=== PATIENT | male | born 1935 | race Caucasian/White ===

== ENCOUNTER → 2016-05-01 | Day surgery (SDC) | payer OTHER ==
[2016-04-24 13:17] VITALS: Ht 175.3 cm; Wt 65.0 kg
[~2016-05-01] VITALS: Ht 175.3 cm; Wt 65.0 kg
[~2016-05-01] MED LIST: ALPR-411 PO; AMIO200T4 PO; ASCO500T3 PO; CHOL400T5 PO; CMD/25 PO; CYAN100020 PO; DNSIS60 INJ; DOCU100C PO; FERR325T5 PO; LIDOCAINE HCL 2% 2 ML VIAL (20MG/ML) ONE; LUPRON DEPOT INJ; METO1TAB69 PO; PRLSR20 PO; PROPOFOL IV EMULSION 10 MG/ML 20 ML VIAL IV ONE; SODIUM CHLORIDE 0.9% 500ML 500 ML IV ONE; TORS20TA2 PO
--- NOTE | 2016-05-01 09:24 | Endo History and Physical ---
History & Physical Date of Service: May 01, 2016. Chief Complaint: ABD Discomfort Referring Physician: Ramandeep History of Present Illness nausea and abdominal pain Past Surgical History Hx Cardiac Surgery: Yes (CABG- 2 VESSELS X 2) Hx Internal Defibrillator: Yes (MEDTRONIC) Hx Pacemaker: Yes (MEDTRONIC) Hx Abdominal Surgery: No Hx of Implantable Prosthesis: No Hx Post-Op Nausea and Vomiting: No Hx Cancer Surgery: No Hx Thoracic Surgery: No Hx Orthopedic: Yes (RT RADIUS FX REPAIR) Hx Urinary Tract Surgery: Yes (VASECTOMY, CYSTOSCOPY ) Family History Colon CA Social History Smoking Status: Former Smoker Hx Substance Use: No Hx Alcohol Use: Yes (ONLY FOR COMMUNION) Allergies Coded Allergies: Bee Venom (Verified Allergy, Unknown, WASPS, 04/24/16) Lisinopril (Verified Allergy, Unknown, COUGH, 04/24/16) Mirtazapine (Verified Allergy, Unknown, FLUSING FEELING, 04/24/16) Streptokinase (Verified Allergy, Unknown, WAS TOLD NOT TO TAKE, 04/24/16) Uncoded Allergies: POISON PO (Allergy, Unknown, BLISTERS, 04/24/16) Current Medications Reported Home Medications Medications Dose Route/Sig Max Daily Dose Days Date Category Dose Instructions Xanax (Alprazolam) 0.5 Mg Tab 0.5 Mg PO HS PRN 04/24/16 Reported Stool Softener (Docusate Sodium) 100 Mg Cap 1 Cap PO DAILY PRN 04/24/16 Reported Prolia (Denosumab) 60 Mg/1 Ml Inj 1 Dose INJ [id number] 04/24/16 Reported [Lupron Depot] 1 Dose INJ [id number] 04/24/16 Reported Coumadin (Warfarin Sod) 2.5 Mg Tab 2.5 Mg PO DIRECTED 04/24/16 Reported TAKES 1 TAB FRIDAY AND THURSDAYS, ALL OTHER DAYS TAKES 0.5 TAB Vitamin C (Ascorbic Acid) 500 Mg Tab 1 Tab PO QPM 04/24/16 Reported Vitamin D (Cholecalciferol) 400 Unit Tab 2 Tab PO QPM 04/24/16 Reported Demadex (Torsemide) 20 Mg Tab 20 Mg PO QAM 04/24/16 Reported Cordarone (Amiodarone Hcl) 200 Mg Tab 100 Mg PO QAM 04/24/16 Reported Toprol-Xl (Metoprolol Succinate) 100 Mg Tabcr 100 Mg PO QAM 04/24/16 Reported Vitamin B12 (Cyanocobalamin) 1,000 Mcg Tab 1 Tab PO QAM 04/24/16 Reported Ferrous Sulfate 325 Mg Tab 1 Tab PO QAM 04/24/16 Reported Prilosec (Omeprazole) 20 Mg Capcr 20 Mg PO QAM 04/24/16 Reported Vital Signs Weight (Kilograms): 65 Height (Feet): 5 Height (Inches): 9 Date Time Temp Pulse Resp B/P Pulse Ox O2 Delivery O2 Flow Rate FiO2 05/01/16 08:50 36.4 67 18 131/86 98 Room Air Physical Exam General Appearance: no apparent distress Respiratory/Chest: Auscultation: breath sounds normal Cardiovascular: Heart Auscultation: RRR Abdomen: Inspection & Palpation: soft Liver: non-tender Assessment and Plan stable for EGD.
--- NOTE | 2016-05-01 09:48 | GI REPORT ---
Procedure Date: 05/01/2016 9:00 AM Procedure: Upper GI endoscopy Indications: Epigastric abdominal pain, Nausea Medicines: See the Anesthesia note for documentation of the administered medications Complications: No immediate complications. Estimated Blood Loss: Estimated blood loss: none. Procedure: Pre-Anesthesia Assessment: - Prior to the procedure, a History and Physical was performed, and patient medications, allergies and sensitivities were reviewed. The patient's tolerance of previous anesthesia was reviewed. - The risks and benefits of the procedure and the sedation options and risks were discussed with the patient. All questions were answered and informed consent was obtained. - Patient identification and proposed procedure were verified prior to the procedure by the physician and the nurse. The procedure was verified in the pre-procedure area. - Pre-procedure physical examination revealed no contraindications to sedation. - After reviewing the risks and benefits, the patient was deemed in satisfactory condition to undergo the procedure. After obtaining informed consent, the endoscope was passed under direct vision. Throughout the procedure, the patient's blood pressure, pulse, and oxygen saturations were monitored continuously. The scope was introduced through the mouth, and advanced to the third part of duodenum. The upper GI endoscopy was accomplished without difficulty. The patient tolerated the procedure well. Findings: The esophagus was normal. The stomach was normal. The examined duodenum was normal. The cardia and gastric fundus were normal on retroflexion. Impression: - Normal esophagus. - Normal stomach. - Normal examined duodenum. - No specimens collected. Recommendation: - Discharge patient to home. Gutierrez Harris M.D. Gutierrez Harris MD 05/01/2016 9:47:58 AM This report has been signed electronically. Note Initiated On: 05/01/2016 9:00 AM I attest to the content of the Intraoperative Record and orders documented therein, exceptions below
--- NOTE | 2016-05-01 09:49 | Discharge Instructions ---
Endoscopy Patient Instructions Date / Procedure(s) Performed May 01, 2016. EGD Allergy Information Coded Allergies: Bee Venom (Verified Allergy, Unknown, WASPS, 04/24/16) Lisinopril (Verified Allergy, Unknown, COUGH, 04/24/16) Mirtazapine (Verified Allergy, Unknown, FLUSING FEELING, 04/24/16) Streptokinase (Verified Allergy, Unknown, WAS TOLD NOT TO TAKE, 04/24/16) Uncoded Allergies: POISON PO (Allergy, Unknown, BLISTERS, 04/24/16) Discharge Date / Findings May 01, 2016. normal EGD. Medication Instructions Stopped Medication(s): Daily meds. Provider Instructions Activity Restrictions - No exercising or heavy lifting for 24 hours. - Do not drink alcohol the day of the procedure. - Do not drive a car or operate machinery until the day after the procedure. - Do not make any important decisions or sign important papers in 24 hours after the procedure. Following Day: - Return to full activity which may include returning to work/school. Diet Start your diet with liquids and light foods (jello, soup, juice, toast). Then eat your usual diet if not nauseated. Treatment For Common After Affects For mild abdominal pain, bloating, or excessive gas: - Rest - Eat lightly - Lie on right side Follow-Up Information Follow-up with Ramandeep as scheduled Anesthesia Information What You Should Know You have had a procedure that required some medicine to reduce anxiety and discomfort. This treatment is called moderate sedation. After receiving the treatment, you may be sleepy, but you will be able to breathe on your own. The effects of the treatment may last for several hours. Follow these instructions along with Activity/Diet recommendations noted above: * Do NOT do anything where dizziness or clumsiness would be dangerous. * Rest quietly at home today, then you can be up and about tomorrow. * Have a responsible person stay with you the rest of today. * You may have had an I.V. today. If so, you may take the dressing off later today. Recommendations Call your doctor if: * Trouble breathing * Continuous vomiting for more than 24 hours * Temperature above 101 degrees * Severe abdominal pain or bloating * Pain not relieved by pain medicine ordered * There is increased drainage or redness from any incision * A large amount of rectal bleeding greater than 2-3 tablespoons. (If you had a polyp/s removed or have hemorrhoids, a small amount of blood - from the rectum is to be expected.) * You have any unanswered questions or concerns. IN THE EVENT OF A SERIOUS EMERGENCY, GO TO THE NEAREST EMERGENCY ROOM Your discharge instructions were prepared by provider Gutierrez Harris. Patient Instructions Signature Page Julius Sullivan Patient (or Guardian) Signature/Date: I have read and understand the instructions given to me by my caregivers. Caregiver/RN/Doctor Signature/Date: The above-named patient and/or guardian has received patient instructions on this date. + Original Patient Signature Page (only) stays with chart. Please make copy for patient.
[2016-05-01 10:10] VITALS: BP 118/70; PULSE 60; O2SAT 96
--- NOTE | 2016-05-01 10:22 | Anesthesiology Progress Note ---
Anesthesia Post Op Note Date & Time May 01, 2016 at 10:22 Vital Signs Pain Intensity: 0 Vital Signs Past 12 Hours Date Time Temp Pulse Resp B/P Pulse Ox O2 Delivery O2 Flow Rate FiO2 05/01/16 10:10 60 20 118/70 96 Room Air 05/01/16 09:55 62 20 117/71 96 Room Air 05/01/16 09:40 65 20 111/62 100 Room Air 05/01/16 08:50 36.4 67 18 131/86 98 Room Air Notes Mental Status: alert / awake / arousable, participated in evaluation Pt Amnestic to Procedure: Yes Nausea / Vomiting: adequately controlled Pain: adequately controlled Airway Patency, RR, SpO2: stable & adequate BP & HR: stable & adequate Hydration State: stable & adequate Anesthetic Complications: no major complications apparent
== END | disposition home or self-care (01) ==
LOC: C.GI 08:13
PROVIDERS: ATTEND Internal Medicine Gastroenterology
DX: R10.13 Epigastric pain (principal); R11.0 Nausea; Z80.0 Family history of malignant neoplasm of digestive organs; Z87.891 Personal history of nicotine dependence; Z79.01 Long term (current) use of anticoagulants; Z79.899 Other long term (current) drug therapy

== ENCOUNTER 2022-05-01 06:55 | Inpatient (IN) ==
[~2022-05-01 06:55] MED LIST changes: -ALPR-411 PO; -AMIO200T4 PO; -ASCO500T3 PO; +BUPIVACAINE 0.25% PF 30 ML VIAL ONE; -CHOL400T5 PO; -CMD/25 PO; -CYAN100020 PO; -DNSIS60 INJ; -DOCU100C PO; -FERR325T5 PO; +LIDOCAINE 1% LOCAL 20 ML VIAL ONE; -LIDOCAINE HCL 2% 2 ML VIAL (20MG/ML) ONE; -LUPRON DEPOT INJ; -METO1TAB69 PO; -PRLSR20 PO; -PROPOFOL IV EMULSION 10 MG/ML 20 ML VIAL IV ONE; -SODIUM CHLORIDE 0.9% 500ML 500 ML IV ONE; -TORS20TA2 PO; +VANCOMYCIN HCL 1000MG/20ML VIAL ONE; +WATER, STERILE FOR INJ 10 ML VIAL ONE
--- NOTE | 2022-05-01 07:59 | History & Physical Report ---
Date of Service May 01, 2022 Assessment & Plan (1) Nonhealing surgical wound: Plan: Pt with non-healing surgical incision presents today for a pocket revision and wide excision discussed the procedure and potential risks with the patient and family today; risks include but not limited to heart attack, stroke, , arrhythmia, infection, bleeding. Everyone understood and consents signed. (2) Ischemic cardiomyopathy: (3) Biventricular ICD (implantable cardioverter-defibrillator) in place: History of Present Illness Chief Complaint: non healing surgical incision Primary Care Provider: Hai Sabillon Pt suffered a mechanical fall about a month after his BiV ICD generator change which was complicated with a hematoma developing over the device site there was a delay in our office finding out about this and by the time we were alerted the incision was opened up. Pt was admitted to [facility] [place] and had direct abx delivered directly to into the pocket for a few days for it was too high risk to laser extraction of the chronic leads. He was eventually brought back to the EP lab and had a new generator placed and the incision closed. During this wound healing the incsion started to scab over and non healing. he presents today in hopes that we can do a pocket revision and wide surgical incision in hopes that we can bring together healthier tissue Allergies Allergy/AdvReac Type Severity Reaction Status Date / Time bee venom protein (honey bee) Allergy Unknown WASPS Verified 05/01/22 07:49 lisinopril Allergy Unknown COUGH Verified 05/01/22 07:49 mirtazapine Allergy Unknown FLUSING Verified 05/01/22 07:49 FEELING streptokinase Allergy Unknown WAS TOLD Verified 05/01/22 07:49 NOT TO TAKE POISON PO Allergy Unknown BLISTERS Uncoded 04/24/16 13:06 Home Medications Medication Instructions Recorded Confirmed Type ASCORBIC ACID (VITAMIN C) 1 tab PO QPM ##0 04/24/16 05/01/22 History Alprazolam (Xanax) 0.5 mg PO HS PRN Sleep #0 tabs 04/24/16 05/01/22 History CHOLECALCIFEROL (VITAMIN D) 2 tab PO QPM ##0 04/24/16 History CYANOCOBALAMIN (VITAMIN B12) 1 tab PO QAM ##0 04/24/16 History Denosumab (Prolia) 1 dose INJ [id number] ##0 04/24/16 History FERROUS SULFATE 1 tab PO QAM ##0 04/24/16 History LUPRON DEPOT 1 dose INJ [id number] ##0 04/24/16 History Metoprolol Succ (Toprol Xl) 100 mg PO QAM #0 tabs 04/24/16 History (Toprol-Xl ) OMEPRAZOLE (PRILOSEC) 20 mg PO QAM #0 caps 04/24/16 History TORSEMIDE (DEMADEX) 20 mg PO QAM #0 tabs 04/24/16 History WARFARIN SOD (Coumadin) 2.5 mg PO DIRECTED #0 tabs 04/24/16 History Past Med/Surg History Medical History (Updated 05/01/22 @ 07:58 by Kayli Reeves DO) Biventricular ICD (implantable cardioverter-defibrillator) in place CAD (coronary artery disease) CHB (complete heart block) CKD (chronic kidney disease) stage 3, GFR 30-59 ml/min GERD (gastroesophageal reflux disease) H/O prostate cancer Hepatitis C Ischemic cardiomyopathy Liver cirrhosis Surgical History (Updated 05/01/22 @ 07:57 by Kayli Reeves DO) Hx of CABG Social History Smoking Status: Former smoker Second Hand Exposure: No; Do You Dip or Chew Tobacco: No; Tobacco Cessation Education Requested by Patient: No Hx Alcohol Use: No Hx Substance Use: No Preferred Language: Lithuanian Communication Ability: Effective Surgical Services Assistant Required: No Current Living Situation: Spouse Feels Safe at Home: Yes Review of Systems All systems reviewed & are unremarkable except as noted in HPI & below Physical Exam Physical Exam: aaox3, NAD NC/AT, EOMI Supple No JVD Nrl S1/S2, No murmur CTA b/l no w/r/r soft nt/nd no LE edema b/l skin intact no focal deficits left pectoral incision large non healing scabs noted Results & Data ([facility]) Vital Signs (Past 12 Hours) Vital Signs Pulse BP Pulse Ox O2 Del Method 05/01/22 07:18 73 138/70 95 Room Air
--- NOTE | 2022-05-01 08:02 | Pre Anesthesia Assessment ---
Date of Service May 01, 2022 Pre Sedation Assessment Vital Signs Pulse BP Pulse Ox O2 Del Method 05/01/22 07:18 73 138/70 95 Room Air Cardiovascular RRR, no murmur, no edema Respiratory normal respiratory effort, lungs clear to auscultation Pre-Sedation Airway Assessment Smoking Status: Former smoker Short, Thick Neck: No Thyromental Distance: > or= 3.5 Finger Breadths Oral Cavity: + WNL Mallampati Class: III ASA: ASA3 NPO Status Date of Last Intake of Fluids: 04/30/22 Date of Last Intake of Solid Food: 04/30/22 Procedure Planning Contraindications for Sedation: none Current Medications Reviewed: Yes Notes The planned sedation has been discussed with the patient. Informed Consent was obtained. I have identified the patient, determined the appropriateness of sedation and have assessed the patient immediately prior to the procedure. All medicine(s) and interventions are by my order.
[2022-05-01] MEDS ORDERED: ceFAZolin 330 MG/ML 1 GM VIAL ONE (08:05)
[2022-05-01] MEDS ORDERED: fentaNYL citrate PF 100 MCG/2 ML VIAL ONE ×3 (08:05→10:05)
[2022-05-01] MEDS ORDERED: MIDAZOLAM HCL 5 MG/ML 1 ML VIAL ONE (08:05)
[2022-05-01] MEDS ORDERED: MIDAZOLAM HCL 1 MG/ML 2ML VIAL ONE ×2 (09:20→10:06)
[2022-05-01] MEDS ORDERED: WATER, STERILE FOR INJ 10 ML VIAL ONE (11:32)
[2022-05-01] MEDS ORDERED: VANCOMYCIN HCL 1000MG/20ML VIAL ONE (11:32)
--- NOTE | 2022-05-01 12:19 | Post Anesthesia Assessment ---
Date of Service May 01, 2022 Post Sedation Assessment Vital Signs Pulse Resp BP Pulse Ox O2 Del Method O2 Flow Rate 05/01/22 12:00 70 18 110/50 L 96 Nasal Cannula 2 05/01/22 07:18 73 138/70 95 Room Air Recovery Score Activity: Moves 4 extremities Respiration: Deep Breath/Cough Circulation: +/-20% PreAnes Value Consciousness: Fully Awake Oxygen Saturation: <90% w/ supp O2 Post Anesthesia Score: 8 Discharge Sedation Level of Care: Fast Track Phase II Post Sedation Plan On clinical assessment, the patient appears to have tolerated the sedation without complications. Patient is recovering as anticipated. Patient will continue to be monitored by nursing and may be discharged when sedation discharge criteria are met per below protocol. Upon Completions of procedure up to 15 minutes continue every 5 minute vital signs and the P.A.R. score; then discharge to a Phase I or Fast Track to Phase II per the following guidelines: * Discharge Patient to appropriate Phase II area if PAR is 8 or greater or return to pre- procedure baseline. The post - procedure orders will be as directed. * If PAR score is less than 8 or not return to pre-procedure baseline then patient will follow Phase I monitoring till PAR is reached for Phase II. The Phase I may be done in procedure room or may call to secure a Phase I area. * If naloxone or flumazenil are used for reversal, hold in Phase I for continued monitoring from when last reversal dose was given for a minimum of 60 minutes or longer pending the nurse and/or physician discretion of patient condition before discharge to Phase II. Please call the Sedation Physician to re-evaluate and complete post-note for discharge to Phase II area. Do NOT discharge from procedure sedation or Phase 1 until post- sedation evalu ation note is complete by procedure /sedation MD Sedation Discharge Instructions to be given to the patient at discharge to home.
--- NOTE | 2022-05-01 12:20 | Operative Report ---
Post Operative Report Pre & Post Diagnosis Pocket revision and biv pacemaker generator change Operation Date: 05/01/22 08:00 <No data on this case meets the specified criteria> I identified the patient and participated in the time-out.: Yes Procedure Operation Date: 05/01/22 08:00 Actual Procedures p Pocket, I/D Abscess w/Hematoma - Kayli Reeves DO s Pacer Gen Change Multiple - Kayli Reeves DO Surgeon Kayli Reeves, Cad Intern none Estimated Blood Loss 130 Findings Consistent with Post-Op Diagnosis Specimens none Description of Procedure see official report I attest to the content of the Intraoperative Record and any orders documented therein. Any exceptions are noted below.
[2022-05-01] MEDS ORDERED: ALPRAZolam 0.5 MG TABLET PO PRN (12:22)
[2022-05-01] MEDS ORDERED: MoRPHine SULFATE 2 MG/ML CARP IV PRN (15:52)
[2022-05-01] MEDS: ONDANSETRON INJ 2 MG/ML 2 ML VIAL IV PRN (16:04)
--- NOTE | 2022-05-01 16:14 | Surgery Consultation ---
Date of Consultation May 01, 2022 Assessment & Plan (1) Nonhealing surgical wound: Wound was able to be closed primarily and Prevena is functional. No further treatment needed from plastic surgery standpoint until the Prevena comes off in 7 days and we are able to assess the wound. Will assess at that time whether would is healing or additional surgical intervention will be required. In the meantime patient was encouraged to keep protein intake up. Would restrict elevation of left arm for now. History of Present Illness Attending Physician: Kayli Reeves, History of Present Illness Consultation placed by Dr. Reeves. We spoke via telephone during patient's procedure regarding options for wound management. Patient is an 86-year-old male, suffered mechanical fall after BiV ICD generator change. This resulted in hematoma, subsequently became infected and the incision opened. He was admitted to [facility] at that time, did have antibiotics delivered to the pocket. Had a new generator placed following this but then began to develop incisional dehiscence. Plan was for revision of the pocket today. Dr. Reeves contacted me after excising atrophic skin at the site with concerns about possible device coverage. She noted to the device was placed under the pectoralis major muscle but that the muscle too was atrophic. Recommendations were provided, and she was able to achieve primary closure using interrupted nylon suture and placement of a Prevena VAC. Allergies Allergy/AdvReac Type Severity Reaction Status Date / Time bee venom protein (honey bee) Allergy Unknown WASPS Verified 05/01/22 07:49 lisinopril Allergy Unknown COUGH Verified 05/01/22 07:49 mirtazapine Allergy Unknown FLUSING Verified 05/01/22 07:49 FEELING streptokinase Allergy Unknown WAS TOLD Verified 05/01/22 07:49 NOT TO TAKE POISON PO Allergy Unknown BLISTERS Uncoded 04/24/16 13:06 Home Medications Medication Instructions Recorded Confirmed Type ASCORBIC ACID (VITAMIN C) 1 tab PO QPM ##0 04/24/16 05/01/22 History Alprazolam (Xanax) 0.5 mg PO HS PRN Sleep #0 tabs 04/24/16 05/01/22 History CHOLECALCIFEROL (VITAMIN D) 2 tab PO QPM ##0 04/24/16 05/01/22 History CYANOCOBALAMIN (VITAMIN B12) 1 tab PO QAM ##0 04/24/16 05/01/22 History Denosumab (Prolia) 1 dose INJ [id number] ##0 04/24/16 05/01/22 History LUPRON DEPOT 1 dose INJ [id number] ##0 04/24/16 History Metoprolol Succ (Toprol Xl) 25 mg PO QAM #0 tabs 04/24/16 05/01/22 History (Toprol-Xl ) OMEPRAZOLE (PRILOSEC) 20 mg PO QAM #0 caps 04/24/16 05/01/22 History TORSEMIDE (DEMADEX) 40 mg PO 2XD #0 tabs 04/24/16 05/01/22 History Eliquis 2.5 mg PO 2XD 05/01/22 05/01/22 History Patient History Medical History (Updated 05/01/22 @ 07:58 by Kayli Reeves DO) Biventricular ICD (implantable cardioverter-defibrillator) in place CAD (coronary artery disease) CHB (complete heart block) CKD (chronic kidney disease) stage 3, GFR 30-59 ml/min GERD (gastroesophageal reflux disease) H/O prostate cancer Hepatitis C Ischemic cardiomyopathy Liver cirrhosis Surgical History (Updated 05/01/22 @ 07:57 by Kayli Reeves DO) Hx of CABG Social History Smoking Status: Former smoker Second Hand Exposure: No; Do You Dip or Chew Tobacco: No; Tobacco Cessation Education Requested by Patient: No Hx Alcohol Use: No Hx Substance Use: No Preferred Language: Greek Communication Ability: Effective Inside Account Representative Required: No Current Living Situation: Spouse Feels Safe at Home: Yes Physical Exam Physical Exam: prevena intact to left chest, suction holding, no evidence of hematoma, no drainage Results & Data ([facility] [place]) Vital Signs (Past 12 Hours) Vital Signs Temp Pulse Resp BP Pulse Ox O2 Del Method O2 Flow Rate 05/01/22 15:14 97.3 F L 69 18 130/63 92 Room Air 05/01/22 13:45 70 18 110/55 L 98 Nasal Cannula 2 05/01/22 13:15 70 18 118/54 L 98 Nasal Cannula 2 05/01/22 13:00 73 18 99/48 L 98 Nasal Cannula 2 05/01/22 12:45 70 18 100/48 L 98 Nasal Cannula 2 05/01/22 12:30 72 18 100/48 L 100 Nasal Cannula 2 05/01/22 12:15 70 18 100/70 100 Nasal Cannula 2 05/01/22 12:00 70 18 110/50 L 96 Nasal Cannula 2 05/01/22 07:18 73 138/70 95 Room Air PG Care Time/CCT Total # of Minutes Spent Total Time Spent with Patient: Total time spent is greater than 50% in coordination of care (as documented) at patient's floor/unit and/or counseling patient: Coding Level of Care Code 11962 Inpt Consult Level 1 Diagnoses Nonhealing surgical wound T81.89XA
--- NOTE | 2022-05-01 16:19 | Cardiology Progress Note ---
Date of Service May 01, 2022 Assessment & Plan (1) Nonhealing surgical wound: Plan: Pt s/p pocket revision with a wound vac in place; i will admit him overnight for pain control and monitoring given his age and his prolonged procedure today. (2) CHB (complete heart block): Admission and Anticipated Discharge Date Admission Date: May 01, 2022 Subjective Pt s/p pacemaker pocket revision. will admit overnight for pain control and monitoring. Physical Exam Physical Exam: aaox3, NAD NC/AT, EOMI Supple No JVD irregular/irregular S1/S2, No murmur CTA b/l no w/r/r soft nt/nd no LE edema b/l skin wound vac in place no focal deficits Results & Data ([facility]) Vital Signs (Past 12 Hours) Vital Signs Temp Pulse Resp BP Pulse Ox O2 Del Method O2 Flow Rate 05/01/22 15:14 36.3 C L 69 18 130/63 92 Room Air 05/01/22 13:45 70 18 110/55 L 98 Nasal Cannula 2 05/01/22 13:15 70 18 118/54 L 98 Nasal Cannula 2 05/01/22 13:00 73 18 99/48 L 98 Nasal Cannula 2 05/01/22 12:45 70 18 100/48 L 98 Nasal Cannula 2 05/01/22 12:30 72 18 100/48 L 100 Nasal Cannula 2 05/01/22 12:15 70 18 100/70 100 Nasal Cannula 2 05/01/22 12:00 70 18 110/50 L 96 Nasal Cannula 2 05/01/22 07:18 73 138/70 95 Room Air
[2022-05-01] MEDS ORDERED: ceFAZolin 1000MG 1,000 MG/7.5 ML SYR IV ONE (18:00)
[2022-05-01] MEDS: TORSEMIDE 20 MG TAB PO SCH (18:04)
[2022-05-01] MEDS: oxyCODONE/ACETAMINOPHEN 5mg/325mg TAB PO PRN (20:02)
[2022-05-01] MEDS: ASCORBIC ACID 500 MG TAB PO SCH (20:02)
[2022-05-01] MEDS: CHOLECALCIFEROL 400 UNITS 10 MCG TAB PO SCH (20:03)
[2022-05-02] MEDS: TORSEMIDE 20 MG TAB PO SCH ×2 (08:08→16:24)
[2022-05-02] MEDS: METOPROLOL SUCC 25MG EXT REL TAB PO SCH (08:09)
[2022-05-02] MEDS: CYANOCOBALAMIN (B-12) 500 MCG TABLET PO SCH (08:09)
[2022-05-02] MEDS: PANTOprazole 40 MG TAB PO SCH (08:09)
[2022-05-02] MEDS: oxyCODONE/ACETAMINOPHEN 5mg/325mg TAB PO PRN (08:18)
--- NOTE | 2022-05-02 17:36 | Cardiology Progress Note ---
Date of Service May 02, 2022 Assessment & Plan (1) Nonhealing surgical wound: Plan: continue wound vac and pain control plastic surgery consulted PT consult for possible rehab placement (2) CHB (complete heart block): Plan: normal biv pacemaker function on intrrogation today Admission and Anticipated Discharge Date Admission Date: May 01, 2022 Subjective pt seen earlier today around 7:50; he is still in some pain at the surgical site; he did take it upon himself this morning to do his leg in bed PT exercises. He is trying to eat as well Review of Systems Review of Systems: All systems reviewed & are unremarkable except as noted in HPI & below Physical Exam Physical Exam: aaox3, NAD NC/AT, EOMI Supple No JVD irregular S1/S2,+ murmur CTA b/l no w/r/r soft nt/nd no LE edema b/l skin intact no focal deficits left pectoral incision wound vac in place Results & Data ([facility]) Vital Signs (Past 12 Hours) Vital Signs Temp Pulse Pulse Resp BP Pulse Ox O2 Del Method 05/02/22 16:02 70 05/02/22 15:41 36.5 C 70 19 156/99 H 92 Room Air 05/02/22 11:31 36.7 C 71 18 100/42 L 91 Room Air 05/02/22 10:47 70 05/02/22 07:48 Room Air 05/02/22 07:00 36.7 C 68 16 113/61 98 Nasal Cannula O2 Flow Rate 05/02/22 16:02 05/02/22 15:41 05/02/22 11:31 05/02/22 10:47 05/02/22 07:48 05/02/22 07:00 2
[2022-05-02] MEDS: CHOLECALCIFEROL 400 UNITS 10 MCG TAB PO SCH (20:51)
[2022-05-02] MEDS: ASCORBIC ACID 500 MG TAB PO SCH (20:51)
[2022-05-02] MEDS: ONDANSETRON INJ 2 MG/ML 2 ML VIAL IV PRN (20:58)
[2022-05-03] MEDS: PANTOprazole 40 MG TAB PO SCH (08:39)
[2022-05-03] MEDS: TORSEMIDE 20 MG TAB PO SCH (08:40)
[2022-05-03] MEDS: METOPROLOL SUCC 25MG EXT REL TAB PO SCH (08:40)
[2022-05-03] MEDS: CYANOCOBALAMIN (B-12) 500 MCG TABLET PO SCH (08:41)
[2022-05-03] MEDS: ACETAMINOPHEN 325 MG TAB PO PRN (12:14)
[2022-05-03] MEDS: ONDANSETRON INJ 2 MG/ML 2 ML VIAL IV PRN (12:14)
--- NOTE | 2022-05-03 14:35 | Cardiology Progress Note ---
Date of Service May 03, 2022 Assessment & Plan (1) Nonhealing surgical wound: Plan: continue with the wound vac; while he is in the hospital will continue IV abx then upon discharge he needs to go back on the augmentin 500mgBID indefinitely. wound check in our [place] office as scheduled on 05/08 (2) CHB (complete heart block): Plan: s/p biv ppm normal device function (3) Ischemic cardiomyopathy: Plan: would stop digoxin given elevated kidney function; would continue PO demadex, toprol Plan Disp: transfer to hospitalist care; i spoke with Dr. Hawkins and he kindly accepted the pt to their service. Pt is awaiting bed placement for rehab. Admission and Anticipated Discharge Date Admission Date: May 01, 2022 Subjective no events overnight; pt had PT today and is recommended rehab. Pt still has pain at the left shoudler and incision area. no fevers, chills or diarrhea Review of Systems Review of Systems: All systems reviewed & are unremarkable except as noted in HPI & below Physical Exam Physical Exam: aaox3, NAD NC/AT, EOMI Supple No JVD Nrl S1/S2, +murmur CTA b/l no w/r/r soft nt/nd no LE edema b/l skin intact no focal deficits left pectoral incision wound vac in place Results & Data ([facility]) Vital Signs (Past 12 Hours) Vital Signs Temp Pulse Pulse Resp BP Pulse Ox O2 Del Method 05/03/22 14:23 70 05/03/22 12:04 36.9 C 70 20 119/63 91 Room Air 05/03/22 08:05 36.7 C 70 19 104/56 L 93 Room Air 05/03/22 02:46 36.6 C 70 18 109/60 92 Room Air
[2022-05-03] MEDS ORDERED: ceFAZolin 1000MG 1,000 MG/7.5 ML SYR IV ONE (14:45)
[2022-05-03 15:21] LABS: Creatinine Clr Calc Pharmacy 17.8 ml/min; Est GFR (African American) 23.4 ml/min; Est GFR (Non-African American) 20.2 ml/min
--- NOTE | 2022-05-03 16:04 | Hospitalist Progress Note ---
Date of Service May 03, 2022 Assessment & Plan (1) Nonhealing surgical wound: Plan: Nonhealing surgical wound at site of ICD Pocket revision on 05/01/[address] Reeves -Has wound VAC in place -Currently receiving cefazolin IV. Will continue while inpatient -Patient will require lifelong Augmentin p.o. which will be resumed at discharge per Dr Reeves -Wound nurse consult -Cardiology, Dr. Reeves on board. She requests Cope text or call for further questions/management (2) CHB (complete heart block): (3) Biventricular ICD (implantable cardioverter-defibrillator) in place: Plan: S/P ICD (4) SHAN (acute kidney injury): (5) CKD (chronic kidney disease) stage 3, GFR 30-59 ml/min: Plan: SHAN on CKD III-CKD IV Cr: 2.8. Upon outpatient chart review patient's creatinine has been ranging in the low 2's since mid February 2022. Most recent creatinine was 2.0 on 04/29/2022 and 2.4 on 04/15/2022. -Hold tonight's torsemide -Monitor renal functions (6) Chronic combined systolic and diastolic heart failure: Plan: -02/22/2022 echo: EF: 35-39%, mild to moderate AR, moderate MR, severe TR -Patient has been receiving torsemide 40 mg twice daily. Will hold today's evening dose with SHAN and reevaluate for resumption tomorrow -Patient given 60 mg IV Lasix -BMP in a.m. (7) Acute on chronic anemia: Plan: H/H: 09/26. Hgb 9.8 on 04/29/22, 7.7 on 02/22/2022. Prior baseline appeared 9-10 range -Denies melena, hematuria, hematemesis, shortness of breath, chest pain -Transfuse 1 unit PRBC -Blood consent was obtained from the patient as delegated by Dr. Hawkins. Risks and benefits were explained. All questions were answered, and the patient was offered the opportunity to discuss with attending physician and declined. -Monitor H&H (8) Hyponatremia: Plan: Na: 127, was 132 on 04/29/2022 -Serum osmolality, urine osmolality, urine sodium pending (9) Chronic atrial fibrillation: Plan: Chronic atrial fibrillation anticoagulated on Eliquis -Currently rate controlled -Digoxin level: 0.7 -Patient has not been receiving digoxin while inpatient -Will hold on digoxin currently with current SHAN -Patient had been receiving metoprolol succinate 25 mg daily instead of his home dose of 50 mg daily. Discussed with Dr. Reeves who recommends resuming patient's home 50 mg daily -Continue metoprolol succinate 50 mg per home dose -Continue Eliquis (10) CAD (coronary artery disease): (11) Ischemic cardiomyopathy: Plan: CAD s/p CABG -Patient has not been receiving his home atorvastatin, isosorbide. -Continue atorvastatin, isosorbide, metoprolol succinate (12) Generalized weakness: Plan: -Deconditioning over past couple of months with recurrent hospitalizations -PT recommended short term rehab -Case management assisting in placement needs (13) H/O prostate cancer: Plan: S/p radiation, Lupron Follows with Dr. Pham urology Reports chronic dysuria Obtain UA to rule out UTI DVT Prophylaxis -On Eliquis Full Code as per discussion with pt Follows with Hai Sabillon PA-C for routine care Pt was seen and care coordinated with Dr Hawkins. See addendum I spent a total of 80 minutes reviewing notes, outpatient records, labs, medication, coordinating with retail management keyholder, documenting and providing care for this patient excluding time spent in the performance of separately billed services. Admission and Anticipated Discharge Date Admission Date: May 01, 2022 Supervising Physician Co-Signing Physician Notes Patient seen and examined findings and plans as detailed by Marah Wen PA-C Subjective Patient is 86-year-old male with PMH CAD s/p CABG, ischemic cardiomyopathy, chronic atrial fibrillation, ICD in place, CKD III-IV, prostate cancer s/p radiation and Lupron treatment. Care is being transferred from EP cardiology to hospital medicine service. Patient will need placement upon hospital discharge. Inpatient and outpatient charts reviewed. Patient has had complicated course with history of BiV ICD generator change and then developed hematoma over device site with wound dehiscence and subsequent infection. Admitted to [facility] and had antibiotics directly to the pocket and then had new generator placed and incision closed. Had recurrent wound nonhealing and had additional pocket revision I&D abscess/hematoma on 05/01/22 here at [facility] by Dr Reeves. Unfortunately patient had developed SHAN with creatinine from 1.8-2.4 and his torsemide was decreased from 40 mg twice daily to 40 mg daily and then after d ischarge patient had developed acute on chronic systolic and diastolic heart failure and required hospitalization at [facility] 02/21/2022-02/24/2022. Upon discharge from [facility] his torsemide was increased back to 40 mg twice daily. Upon outpatient chart review patient's creatinine has been ranging in the low 2's since mid February 2022. Most recent creatinine was 2.0 on 04/29/2022 and 2.4 on 04/15/2022. Hemoglobin 9.8 on 04/29/2022, was 7.7 on 02/22/2022. Prior baseline appeared 9- 10 range Patient seen and examined. Lying in bed. He reports some discomfort to left upper chest at ICD site with range of motion of his left arm. Has wound VAC in place. Patient reports some intermittent nausea. Denies any vomiting. He reports some dysuria at beginning of stream, resolves during urination. This mayfield s been ongoing for years since his prostate cancer treatment. Denies fever/chills, diaphoresis,V/D/C, [place], dizziness, syncope, other CP, SOB, palpitations, cough, sore throat, rhinorrhea, abdominal pain, flank pain extremity weakness, increased extremity edema, rashes. Review of Systems Review of Systems: All systems reviewed & are unremarkable except as noted in HPI & below Physical Exam Physical Exam: General: no acute distress, WDWN elderly male Head: normocephalic, atraumatic Eyes: conjunctiva non-injected, anicteric ENT: hard of hearing, normal inspection external ears, nose, mucous membranes moist Neck: supple, trachea midline Lungs: clear, no respiratory distress, no wheezing/rhonchi/rales CV: irregularly irregular, +murmur, no pretibial edema, Chest wall: left upper chest with wound vac in place Abd: normal BS, soft, non-tender Ext: no cyanosis, no calf tenderness Neuro: A&O x 3, no focal deficits noted, normal affect Skin: warm, dry Results & Data Results & Data ([facility]) Vital Signs (Past 12 Hours) Vital Signs Temp Pulse Pulse Resp BP Pulse Ox O2 Del Method 05/03/22 14:23 70 05/03/22 12:04 36.9 C 70 20 119/63 91 Room Air 05/03/22 08:05 36.7 C 70 19 104/56 L 93 Room Air Laboratory Results Short CBC 05/03/22 Range/Units 14:52 WBC 8.22 (4.8-10.8) K/ul Hgb 7.0 L (14.0-18.0) g/dl Hct 20.9 L* (42.0-52.0) % Plt Count 167 (130-400) K/uL BMP 05/03/22 05/03/22 14:52 15:48 Sodium 127 L Potassium 4.7 Chloride 91 L Carbon Dioxide 25 BUN 88 H Creatinine 2.76 H 2.81 H Glucose 130 H Calcium 8.8 Liver Function 05/03/22 Range/Units 15:48 Total Bilirubin 0.4 (0.2-1.0) mg/dl AST 26 (13-39) U/L ALT 10 (7-52) U/L Alkaline Phosphatase 47 (34-104) U/L Albumin 3.5 (3.4-5.0) gm/dl
[2022-05-03 16:50] LABS: Albumin Globulin Ratio 1.2 (0.9-2); Albumin Level 3.5 gm/dl (3.4-5.0); BUN Creatinine Ratio 31.3 (10-20); Bilirubin,Total 0.4 mg/dl (0.2-1.0); Calcium 8.8 mg/dl (8.5-10.1); Creatinine Clr Calc Pharmacy 17.5 ml/min; Est GFR (African American) 22.9 ml/min; Est GFR (Non-African American) 19.7 ml/min; Potassium 4.7 mmol/L (3.5-5.1); Total Protein 6.5 gm/dl (6.0-8.3)
[2022-05-03 17:34] LABS: Hematocrit (blood only) 20.9 % (42.0-52.0); Mean Corpuscular Hemoglobin 30.4 pg (25.0-34.0); Mean Corpuscular Hgb Conc 33.5 g/dL (32.0-36.0); Mean Corpuscular Volume 90.9 fL (80.0-100.0); Platelet Count 167 K/uL (130-400); RDW Standard Deviation 52.8 fL (36.4-46.3); White Blood Count 8.22 K/ul (4.8-10.8)
[2022-05-03] MEDS ORDERED: FUROSEMIDE 40 MG/4 ML VIAL IV ONE ×2 (17:48→23:37)
[2022-05-03] MEDS ORDERED: SODIUM CHLORIDE 0.9% 250 ML IV PRN (17:48)
[2022-05-03 18:14] LABS: Acanthocytes 1+; Basophils # (auto) 0.02 K/uL (0-0.2); Basophils % (auto) 0.2 %; Echinocytes 1+; Eosinophils # (auto) 0.06 K/uL (0-0.50); Eosinophils % (auto) 0.7 %; Immature Granulocytes # (auto) 0.04 K/uL (0.01-0.20); Immature Granulocytes % (auto) 0.5 %; Lymphocytes # (auto) 0.38 K/uL (1.2-3.4); Lymphocytes % (auto) 4.6 %; Monocytes # (auto) 0.95 K/uL (0.11-0.59); Monocytes % (auto) 11.6 %; Neutrophils # (auto) 6.77 K/uL (1.40-6.50); Neutrophils % (auto) 82.4 %
[2022-05-03] MEDS ORDERED: TORSEMIDE 20 MG TAB PO SCH (21:00)
[2022-05-03] MEDS: APIXABAN 2.5 MG TAB PO SCH (21:26)
[2022-05-03 22:35] LABS: Appearance Urine Clear (Clear); Bilirubin Urine Negative (Negative); Blood Urine Negative (Negative); Color Urine Yellow; Glucose Urine UA Negative (Negative); Ketones Urine Negative (Negative); Leukocyte Esterase Urine Negative (Negative); Nitrite Urine Negative (Negative); Protein Urine Negative (Negative); Specific Gravity Urine 1.012 (1.000-1.030); Urobilinogen Urine Negative (Negative)
[2022-05-03] MEDS: ALPRAZolam 0.5 MG TABLET PO PRN (22:50)
[2022-05-04 00:54] LABS: Hematocrit (blood only) 25.5 % (42.0-52.0); Hemoglobin 8.6 g/dl (14.0-18.0)
[2022-05-04] MEDS: ceFAZolin 1000MG 1,000 MG/7.5 ML SYR IV SCH ×2 (03:33→16:36)
[2022-05-04] MEDS: oxyCODONE/ACETAMINOPHEN 5mg/325mg TAB PO PRN (06:23)
[2022-05-04 06:50] LABS: Hematocrit (blood only) 26.2 % (42.0-52.0); Hemoglobin 8.9 g/dl (14.0-18.0); Mean Corpuscular Hemoglobin 29.8 pg (25.0-34.0); Mean Corpuscular Volume 87.6 fL (80.0-100.0); Mean Platelet Volume 10.9 fL (9.4-12.4); Platelet Count 169 K/uL (130-400); RDW Coefficient of Variation 15.8 % (11.5-14.5); RDW Standard Deviation 50.3 fL (36.4-46.3); Red Blood Count 2.99 M/uL (4.70-6.10)
[2022-05-04 07:14] LABS: BUN Creatinine Ratio 33.9 (10-20); Creatinine Clr Calc Pharmacy 17.5 ml/min; Est GFR (Non-African American) 19.8 ml/min; Magnesium 2.3 mg/dl (1.7-2.4); Potassium 4.3 mmol/L (3.5-5.1)
[2022-05-04] MEDS ORDERED: TORSEMIDE 10 MG TAB PO SCH (09:00)
[2022-05-04] MEDS: ASCORBIC ACID 500 MG TAB PO SCH (09:58)
[2022-05-04] MEDS: ATORVASTATIN 40 MG TAB PO SCH (09:58)
[2022-05-04] MEDS: METOPROLOL SUCC 50MG EXT REL TAB PO SCH (09:58)
[2022-05-04] MEDS: ISOSORBIDE MONO EXTENDED REL 30 MG TABCR PO SCH (09:58)
[2022-05-04] MEDS: PANTOprazole 40 MG TAB PO SCH (09:58)
[2022-05-04] MEDS: CHOLECALCIFEROL 1,000 UNITS 25 MCG TAB PO SCH (09:58)
[2022-05-04] MEDS: CYANOCOBALAMIN (B-12) 500 MCG TABLET PO SCH (09:58)
[2022-05-04] MEDS: APIXABAN 2.5 MG TAB PO SCH ×2 (09:59→20:18)
--- NOTE | 2022-05-04 10:10 | Nephrology Consultation ---
Date of Consultation May 04, 2022 Assessment & Plan (1) SHAN (acute kidney injury): Patient with acute kidney injury on CKD likely due to ATN in setting of infected wound. Patient is receiving IV antibiotics per primary team. Creatinine appears to have leveled off at 2.8. No indication for dialysis. Patient is relatively high risk for progression to ESRD. We will continue to monitor renal function closely. Patient is getting a daily BMP. Avoid nephrotoxins and contrast. (2) CKD (chronic kidney disease) stage 3, GFR 30-59 ml/min: Patient with CKD stage III due to hypertension and heart disease. Obtain baseline creatinine in the lower twos. (3) Chronic combined systolic and diastolic heart failure: Patient with ischemic cardiomyopathy. Home diuretic dose is torsemide 40 mg twice daily. Recommend reducing torsemide to 40 mg daily. Please obtain chest x-ray to assess volume status (4) Acute on chronic anemia: Admission hemoglobin of 7. Patient received a unit of blood. Monitor and transfuse as needed. History of Present Illness Reason for Consultation: Acute kidney on CKD Requesting Physician: Ramy Solares MD Attending Physician: Ramy Solares MD History of Present Illness This is a 86-year-old male with history of ischemic cardiomyopathy status post CABG, complete heart block status post biventricular ICD, liver cirrhosis, history of prostate cancer and CKD stage III baseline creatinine in the low twos. Patient was admitted with the wound dehiscence and revision done by Dr. Reeves. Patient recently had ICD battery change but then had traumatic injury after fall which led to hematoma and wound infection. He is s/p antibiotics and wound closure. He now has a wound VAC. He is getting IV Ancef pain admission creatinine was 2.8 and creatinine remained stable at 2.8 today. His sodium is 129 but he also has high BUN. Patient also had anemia with hemoglobin of 7. He received a unit of blood. Hemoglobin is 8.9 this morning. He reports to be feeling fine denies any shortness of breath or leg swelling. He has not had good sleep and feels sleepy this morning. Allergies Allergy/AdvReac Type Severity Reaction Status Date / Time bee venom protein (honey bee) Allergy Unknown WASPS Verified 05/01/22 07:49 lisinopril Allergy Unknown COUGH Verified 05/01/22 07:49 mirtazapine Allergy Unknown FLUSING Verified 05/01/22 07:49 FEELING streptokinase Allergy Unknown WAS TOLD Verified 05/01/22 07:49 NOT TO TAKE POISON PO Allergy Unknown BLISTERS Uncoded 04/24/16 13:06 Home Medications Medication Instructions Recorded Confirmed Type alprazolam 0.5 mg tablet 0.5 mg PO HS PRN Insomnia 05/03/22 05/03/22 History amoxicillin 500 mg-potassium 1 tab PO BID 05/03/22 05/03/22 History clavulanate 125 mg tablet apixaban 2.5 mg tablet (Eliquis) 2.5 mg PO BID 05/03/22 05/03/22 History ascorbic acid (vitamin C) 500 mg 500 mg PO DAILY 05/03/22 05/03/22 History tablet (Vitamin C) atorvastatin 40 mg tablet 40 mg PO DAILY 05/03/22 05/03/22 History cholecalciferol (vitamin D3) 50 2,000 unit PO DAILY 05/03/22 05/03/22 History mcg (2,000 unit) capsule (Vitamin D3) cyanocobalamin (vitamin B-12) 1,000 mcg PO DAILY 05/03/22 05/03/22 History 1,000 mcg tablet digoxin 125 mcg (0.125 mg) tablet 62.5 mcg PO UD 05/03/22 05/03/22 History isosorbide mononitrate 30 mg 30 mg PO DAILY 05/03/22 05/03/22 History tablet,extended release 24 hr metoprolol succinate 50 mg 50 mg PO DAILY 05/03/22 05/03/22 History tablet,extended release 24 hr omeprazole 20 mg capsule,delayed 20 mg PO DAILY 05/03/22 05/03/22 History release torsemide 20 mg tablet 40 mg PO BID 05/03/22 05/03/22 History Patient History Medical History (Updated 05/03/22 @ 20:22 by Marah Wen PA-C) Biventricular ICD (implantable cardioverter-defibrillator) in place CAD (coronary artery disease) CHB (complete heart block) Chronic atrial fibrillation Chronic combined systolic and diastolic heart failure CKD (chronic kidney disease) stage 3, GFR 30-59 ml/min GERD (gastroesophageal reflux disease) H/O prostate cancer Hepatitis C Ischemic cardiomyopathy Liver cirrhosis Surgical History (Updated 05/01/22 @ 07:57 by Kayli Reeves DO) Hx of CABG Social History Smoking Status: Former smoker Second Hand Exposure: No; Do You Dip or Chew Tobacco: No; Tobacco Cessation Education Requested by Patient: No Hx Alcohol Use: No Hx Substance Use: No Preferred Language: Yemeni Communication Ability: Effective Roofer Metal Required: No Current Living Situation: Spouse Feels Safe at Home: Yes Assistive Devices: Cane and Walker Review of Systems Review of Systems: All other systems were reviewed and negative except as noted in HPI Physical Exam Physical Exam: General exam: Appears comfortable, no acute distress HEENT: Pupils are equal and reactive to light Neck: No JVD, neck is supple trachea is midline Respiratory system: Clear breath sounds bilaterally.Wound VAC on the left upper chest Gastrointestinal: Abdomen is soft, non distended, non tender, bowel sounds are present CVS: Regular rate and rhythm. No murmurs, rubs or gallops Musculoskeletal: No joint or muscle tenderness Extremities: Non tender, no edema, peripheral pulses are present Neuro: Oriented, no tremors, no focal neurological deficits Skin: No rashes Results & Data ([facility]) Vital Signs (Past 12 Hours) Vital Signs Temp Pulse Pulse Resp BP BP Pulse Ox 05/04/22 07:57 36.5 C 70 18 123/63 92 05/04/22 03:33 36.6 C 70 17 108/59 L 94 05/03/22 23:29 36.3 C L 70 16 122/72 93 05/03/22 22:57 70 05/03/22 22:29 36.3 C L 69 17 116/68 93 O2 Del Method 05/04/22 07:57 Room Air 05/04/22 03:33 Room Air 05/03/22 23:29 05/03/22 22:57 05/03/22 22:29 Laboratory Results 05/04/22 06:04 05/03/22 05/03/22 05/04/22 14:52 15:48 06:04 WBC 8.22 8.70 RBC 2.30 L 2.99 L MCV 90.9 87.6 MCH 30.4 29.8 MCHC 33.5 34.0 RDW Std Deviation 52.8 H 50.3 H RDW Coeff of Joycelyn 16.0 H 15.8 H Plt Count 167 169 MPV 11.0 10.9 Phosphorus Albumin 3.5 05/04/22 06:04 WBC RBC MCV MCH MCHC RDW Std Deviation RDW Coeff of Joycelyn Plt Count MPV Phosphorus 4.0 Albumin
--- NOTE | 2022-05-04 16:36 | Hospitalist Progress Note ---
Date of Service May 04, 2022 Assessment & Plan (1) Nonhealing surgical wound: Plan: Nonhealing surgical wound at site of ICD Pocket revision on 05/01/[address] Reeves Chest x-ray pending Continue IV cefazolin for now Check MRSA screen -Continue wound VAC -May need prolonged course of antibiotics Wound care nurse consulted Cardiology on board Plastic surgery consulted as well Will consider infectious disease if needed (2) CHB (complete heart block): (3) Biventricular ICD (implantable cardioverter-defibrillator) in place: Plan: S/P ICD (4) SHAN (acute kidney injury): (5) CKD (chronic kidney disease) stage 3, GFR 30-59 ml/min: Plan: SHAN on CKD III-CKD IV Likely ATN High risk for progression to ESRD Monitor renal function Avoid nephrotoxic agents as able Appreciate nephrology input Torsemide dose decreased to 40 mg daily Cr 2.8 (6) Chronic combined systolic and diastolic heart failure: Plan: -02/22/2022 echo: EF: 35-39%, mild to moderate AR, moderate MR, severe TR -Recommend dose decreased to 40 mg daily due to SHAN Monitor volume status (7) Acute on chronic anemia: Plan: H/H: 09/26. Hgb 9.8 on 04/29/22, 7.7 on 02/22/2022. Prior baseline appeared 9-10 range -Denies melena, hematuria, hematemesis, shortness of breath, chest pain -S/P 1 unit PRBC -Monitor CBC (8) Hyponatremia: Plan: Likely due to diuretics Monitor sodium levels Sodium 129 today (9) Chronic atrial fibrillation: Plan: Chronic atrial fibrillation anticoagulated on Eliquis Digoxin level: 0.7 Digoxin discontinued secondary to SHAN Cardiology on board Continue metoprolol On Eliquis for anticoagulation (10) CAD (coronary artery disease): (11) Ischemic cardiomyopathy: Plan: CAD s/p CABG -Continue atorvastatin, isosorbide, metoprolol succinate (12) Generalized weakness: Plan: -Deconditioning over past couple of months with recurrent hospitalizations -Continue PT/OT (13) H/O prostate cancer: Plan: S/p radiation, Lupron Follows with Dr. Pham urology Reports chronic dysuria UA not suggestive of UTI DVT Px -On Eliquis Code Status Full Code Admission and Anticipated Discharge Date Admission Date: May 01, 2022 Subjective Patient is seen and examined at bedside Mildly delirious overnight Oriented during my encounter this morning Slept well after many days as per patient Appetite slowly improving Denies any chest pain, shortness of breath, dizziness, nausea, abdominal pain Offers no other complaints Review of Systems Review of Systems: All systems reviewed & are unremarkable except as noted in Subjective Physical Exam Physical Exam: Physical Exam: Vitals signs as noted above General Appearance: Thin, frail, elderly, no apparent distress Head: normocephalic, Atraumatic Eyes: normal inspection, EOMI Neck: supple, Trachea midline Respiratory/Chest: Normal breath sounds, CTA, No accessory muscle use,+ left upper chest wound VAC Cardiovascular: S1, S2, No murmur Abdomen/GI:Soft, Non tender, Bowel sounds present Extremities/Musculoskeletal:normal inspection, + left upper extremity mildly swollen Neurologic/Psych:AAOX2, grossly no focal neurological deficits Skin: normal color, warm Results & Data Results & Data ([facility]) Vital Signs (Past 12 Hours) Vital Signs Temp Pulse Resp BP Pulse Ox O2 Del Method 05/04/22 16:05 36.4 C L 70 17 114/63 95 Room Air 05/04/22 12:19 36.4 C L 70 19 112/61 94 Room Air 05/04/22 07:57 36.5 C 70 18 123/63 92 Room Air Laboratory Results Short CBC 05/03/22 05/04/22 05/04/22 Range/Units 14:52 00:26 06:04 WBC 8.22 8.70 (4.8-10.8) K/ul Hgb 7.0 L 8.6 L 8.9 L (14.0-18.0) g/dl Hct 20.9 L* 25.5 L 26.2 L (42.0-52.0) % Plt Count 167 169 (130-400) K/uL BMP 05/03/22 05/04/22 15:48 06:04 Sodium 127 L 129 L Potassium 4.7 4.3 Chloride 91 L 93 L Carbon Dioxide 25 29 BUN 88 H 95 H Creatinine 2.81 H 2.80 H Glucose 130 H 103 H Calcium 8.8 9.0 Liver Function 05/03/22 Range/Units 15:48 Total Bilirubin 0.4 (0.2-1.0) mg/dl AST 26 (13-39) U/L ALT 10 (7-52) U/L Alkaline Phosphatase 47 (34-104) U/L Albumin 3.5 (3.4-5.0) gm/dl Urine 05/03/22 Range/Units 22:00 Urine Color Yellow Urine Appearance Clear (Clear) Urine pH 5.0 (4.5-7.5) Ur Specific [place] 1.012 (1.000-1.030) Urine Protein Negative (Negative) Urine Glucose (UA) Negative (Negative)
--- NOTE | 2022-05-04 19:28 | XRay Report ---
XR chest 1V portable CLINICAL HISTORY: Assess Volume Status COMPARISON STUDY: Chest CT November 19, 2016. FINDINGS: Left subclavian pacer, median sternotomy wires and mediastinal surgical clips are noted. Mo derate right and small left pleural effusions are present. There is no pneumothorax. Bibasilar opacit ies are noted. There is no evidence for pulmonary edema. IMPRESSION: 1. Moderate right and small left pleural effusions with associated bibasilar opacities which could re flect atelectasis or consolidation. Radiographic follow-up is recommended. 2. Moderate cardiomegaly. No evidence for pulmonary edema. ACT 112: Negative or not required by law. Electronically signed by: Pranay Shetty M.D. 05/04/2022 7:25 PM
[2022-05-04] MEDS: ALPRAZolam 0.5 MG TABLET PO PRN (20:21)
[2022-05-05] MEDS: ceFAZolin 1000MG 1,000 MG/7.5 ML SYR IV SCH ×2 (03:51→16:14)
[2022-05-05 06:14] LABS: Hematocrit (blood only) 24.9 % (42.0-52.0); Hemoglobin 8.5 g/dl (14.0-18.0); Mean Corpuscular Hgb Conc 34.1 g/dL (32.0-36.0); Mean Platelet Volume 10.8 fL (9.4-12.4); Nucleated RBC # (auto) 0.03 K/uL (0-0.12); Nucleated RBC % (auto) 0.4 %; Platelet Count 178 K/uL (130-400); RDW Coefficient of Variation 15.6 % (11.5-14.5); RDW Standard Deviation 49.7 fL (36.4-46.3); Red Blood Count 2.83 M/uL (4.70-6.10); White Blood Count 7.15 K/ul (4.8-10.8)
[2022-05-05 07:51] LABS: Calcium 8.8 mg/dl (8.5-10.1); Potassium 4.1 mmol/L (3.5-5.1)
[2022-05-05 07:56] LABS: BUN Creatinine Ratio 35.4 (10-20); Creatinine Clr Calc Pharmacy 19.2 ml/min; Est GFR (African American) 25.1 ml/min; Est GFR (Non-African American) 21.7 ml/min
[2022-05-05] MEDS: CHOLECALCIFEROL 1,000 UNITS 25 MCG TAB PO SCH (08:38)
[2022-05-05] MEDS: APIXABAN 2.5 MG TAB PO SCH ×2 (08:38→20:36)
[2022-05-05] MEDS: ASCORBIC ACID 500 MG TAB PO SCH (08:38)
[2022-05-05] MEDS: ATORVASTATIN 40 MG TAB PO SCH (08:38)
[2022-05-05] MEDS: ISOSORBIDE MONO EXTENDED REL 30 MG TABCR PO SCH (08:39)
[2022-05-05] MEDS: CYANOCOBALAMIN (B-12) 500 MCG TABLET PO SCH (08:39)
[2022-05-05] MEDS: METOPROLOL SUCC 50MG EXT REL TAB PO SCH (08:39)
[2022-05-05] MEDS: PANTOprazole 40 MG TAB PO SCH (08:39)
[2022-05-05] MEDS ORDERED: TORSEMIDE 10 MG TAB PO SCH (09:00)
--- NOTE | 2022-05-05 09:25 | Nephrology Progress Note ---
Date of Service May 05, 2022 Assessment & Plan (1) SHAN (acute kidney injury): Plan: Patient with acute kidney injury on CKD likely due to ATN in setting of infected wound. Patient is receiving IV antibiotics per primary team. Creatinine slightly better at 2.6 today from 2.8 yesterday. No indication for dialysis. Patient is relatively high risk for progression to ESRD. We will continue to monitor renal function closely. Patient is getting a daily BMP. Avoid nephrotoxins and contrast. (2) CKD (chronic kidney disease) stage 3, GFR 30-59 ml/min: Plan: Patient with CKD stage III due to hypertension and heart disease. baseline creatinine in the lower twos. (3) Chronic combined systolic and diastolic heart failure: Plan: Patient with ischemic cardiomyopathy. Home diuretic dose is torsemide 40 mg twice daily. Currently on torsemide to 40 mg daily. (4) Acute on chronic anemia: Plan: Admission hemoglobin of 7. Patient received a unit of blood. Hemoglobin of 8.5 today. Monitor and transfuse as needed. Admission and Anticipated Discharge Date Admission Date: May 01, 2022 Subjective Seen for acute kidney injury on CKD. He feels better today. No shortness of breath. No leg swelling. Review of Systems Review of Systems: All other systems were reviewed and negative except as noted in HPI Physical Exam Physical Exam: General exam: Appears comfortable, no acute distress HEENT: Pupils are equal and reactive to light Neck: No JVD, neck is supple trachea is midline Respiratory system: Clear breath sounds bilaterally.Wound VAC on the left upper chest Gastrointestinal: Abdomen is soft, non distended, non tender, bowel sounds are present CVS: Regular rate and rhythm. No murmurs, rubs or gallops Musculoskeletal: No joint or muscle tenderness Extremities: Non tender, no edema, peripheral pulses are present Neuro: Oriented, no tremors, no focal neurological deficits Skin: No rashes Results & Data ([facility]) Vital Signs (Past 12 Hours) Vital Signs Temp Pulse Pulse Resp BP Pulse Ox O2 Del Method 05/05/22 06:46 36.6 C 70 16 127/62 93 Room Air 05/05/22 03:02 36.6 C 71 16 109/58 L 93 Room Air 05/04/22 23:00 70 05/05/22 00:04 36.9 C 67 18 121/58 L 92 Room Air Laboratory Results 05/05/22 05:35 05/05/22 05:35 WBC 7.15 RBC 2.83 L MCV 88.0 MCH 30.0 MCHC 34.1 RDW Std Deviation 49.7 H RDW Coeff of Joycelyn 15.6 H Plt Count 178 MPV 10.8
[2022-05-05] MEDS ORDERED: POLYETHYLENE (MIRALAX) 17 GM PACK PO PRN (11:20)
[2022-05-05] MEDS ORDERED: POLYETHYLENE (MIRALAX) 17 GM PACK PO ONE (11:21)
[2022-05-05] MEDS: DOCUSATE SODIUM 100 MG CAP PO SCH ×2 (11:55→20:36)
--- NOTE | 2022-05-05 13:28 | Operative Report (OR) ---
DATE OF PROCEDURE: 05/01/2022. PREOPERATIVE DIAGNOSIS: Nonhealing surgical incision. POSTOPERATIVE DIAGNOSIS: Nonhealing surgical incision. PROCEDURE: Pocket revision and downgrade to a BiV rate responsive permanent pacemaker. SURGEON: Kayli Reeves DO. DIRECTOR OF SOFTWARE ENGINEERING: None. ANESTHESIA: Monitored conscious sedation administered under my supervision by Madelyn Cortés. Start time 8:45, end time 11:45, total of 7 mg of Versed and 250 mcg of fentanyl. INTRAVENOUS FLUIDS: 273 mL. ANTIBIOTICS: 1 g of Ancef. BLOOD LOSS: Over a 100 mL COMPLICATIONS: None. CONDITION: Stable. URINE OUTPUT: None. SPECIMENS: None. FINDINGS: See below. DRAINS: None. INDICATIONS: This is an 86-year-old gentleman who has a past medical history for ischemic cardiomyopathy where he first underwent a permanent pacemaker and complete heart block where he first underwent a pacemaker in 11/2005 that was upgraded to a BiV ICD in 03/2015 with a generator change in 12/2021. Shortly after the generator change, though he fell, had a mechanical fall creating a pocket hematoma and the incision was opened so he underwent extraction of the BiV ICD and temp wire was placed while he had a week's worth of IV antibiotics and antibiotics infused directly into the pocket. Then, on 02/14/2022, he was reimplanted under the pectoralis muscle BiV ICD. However, the wound reopened up and was not healing, so he presents today for re-incision and hopefully hoping the tissue heal together. His other past medical history is hepatitis C, liver cirrhosis, chronic kidney disease stage III, gastroesophageal reflux disease, history of prostate cancer, coronary artery disease, history of a CABG in 04/2021 with GONSALEZ to LAD, sequential graft from the LAD to the RCA, SVG to diagonal, a Y graft from the distal LAD to the diagonal, SVG to OM, Y graft to the PDA, chronic heart failure with reduced ejection fraction, [place] [employer] class III, tricuspid regurgitation. CONSENT: Consent was obtained prior to the patient going into the electrophysiology lab. The patient was informed of risks, benefits, and alternatives to the procedure. Risks include, but not limited to, sudden cardiac , cardiac arrhythmias, cerebrovascular myocardial infarction, bleeding and infection. The patient understood these risks and agreed to the procedure as planned and informed consent was obtained. DESCRIPTION OF PROCEDURE: The patient was brought into electrophysiology lab in a fasting state. He was connected to continuous director of cardiac rehabilitation. Timeout was performed to ensure patient identity and procedure correctly. He was prepped and draped over the left infraclavicular space in normal surgical standard fashion. Monitored conscious sedation was given throughout the procedure for patient's comfort level. [place] precautions were maintained throughout the procedure. A 20 mL of 1% lidocaine-bupivacaine mixture were given over the prior surgical incision. Then, a wide elliptical incision was made around the surgical incision that was nonhealing. I debrided all of the nonhealing tissue and then the pectoralis muscle was very thin about the size of the tissue paper, but I did blunt dissection down due to a biventricular ICD, as well as I blunt dissected out most of the lead from the capsule. I then checked the wires intraoperatively. I then opted to connect him to the old capped pace sense lead to a BiV pacemaker, in addition using the right atrial lead and the left bundle lead. The right ventricular ICD lead that was DF1 lead, I cut the yoke out and then capped that. I then flushed the pocket with copious amounts of vancomycin and saline wash and inspected it for hemostasis. I then placed the device under the pectoralis muscle and then using 2-0 Vicryl closed up the muscle. There really was no muscle fibers to connect together, but I closed the muscle, probably some of the subcutaneous tissue right above the lung. I then made sure that I buried the defibrillator lead that I had capped under some tissue as well with 2-0 Vicryl. Then, I was somehow able to pull the skin together enough with 3-0 Ethilon suture to approximate the edges and then I placed the Provenea wound VAC on top of the incision and patient then left the operating room in a stable state. EQUIPMENT: 1. The explanted generator is a [id number], serial number [id number]. The new pulse generator is [employer] Mary Quad CHART WRITER-P MRI SureScan [id number], right atrial lead 5076-45 cm, serial number [id number], implanted 11/21/2005. 2. The right ventricular defibrillator lead that is now capped is a 5935-58 cm, serial number [id number], implanted 03/29/2015 again remember I cut off the yoke part of it and capped it. The new right ventricular pacing lead is a old pace sense lead, which is a 5076-52 cm, serial number [id number], implanted 11/21/2005. 3. Left bundle lead is a 4598-88 cm, serial number [id number], implanted 03/29/2015. INTRAPROCEDURAL FINDINGS: Right atrial lead fib waves 2.1 millivolts, impedance 399 ohms. The paced RV lead is no R waves paced, impedance 380 ohms, 1.25 volts at 0.4 milliseconds. Coronary sinus lead is LV2-LV3, which is impedance 439 ohms, threshold 1 volt at 0.5 milliseconds. FINAL MEASUREMENTS THROUGH THE DEVICE. 1. Right atrial lead fib waves 1.4 millivolts, impedance 342 ohms. 2. Right ventricular lead, impedance 342 ohms, threshold 1.5 volts at 0.4 milliseconds. No R waves, patient is paced. 3. Coronary sinus lead is impedance 399 ohms, threshold 1.75 volts at 0.4 milliseconds. FINAL PARAMETERS: VVIR 70/110, right ventricular amplitude 3 volts, pulse width 0.4 milliseconds, sensitivity 2.8 millivolts coronary sinus lead 2.5 volts and 0.4 milliseconds. IMPRESSION: Successful wound pocket revision and downgrade to a BiV pacemaker rate responsive secondary to nonhealing incision. PLAN: Monitor the patient post-procedure, admit him to be overnight. Job ID: [id number] MTDD
--- NOTE | 2022-05-05 15:08 | Hospitalist Progress Note ---
Date of Service May 05, 2022 Assessment & Plan (1) Nonhealing surgical wound: Plan: Nonhealing surgical wound at site of ICD Pocket revision on 05/01/[address] Reeves Chest x-ray:Moderate right and small left pleural effusions with associated bibasilar opacities which could reflect atelectasis or consolidation. Radiographic follow-up is recommended. Moderate cardiomegaly. No evidence for pulmonary edema. Continue IV cefazolin for now MRSA screen Negative -Continue wound VAC -May need prolonged course of antibiotics Wound care nurse consulted Cardiology on board Plastic surgery and ID consulted as well (2) CHB (complete heart block): (3) Biventricular ICD (implantable cardioverter-defibrillator) in place: Plan: S/P ICD (4) SHAN (acute kidney injury): (5) CKD (chronic kidney disease) stage 3, GFR 30-59 ml/min: Plan: SHAN on CKD III-CKD IV Likely ATN High risk for progression to ESRD Monitor renal function Avoid nephrotoxic agents as able Appreciate nephrology input Torsemide dose decreased to 40 mg daily Cr 2.8>2.6 (6) Chronic combined systolic and diastolic heart failure: Plan: -02/22/2022 echo: EF: 35-39%, mild to moderate AR, moderate MR, severe TR -Recommend dose decreased to 40 mg daily due to SHAN Monitor volume status (7) Acute on chronic anemia: Plan: H/H: 09/26. Hgb 9.8 on 04/29/22, 7.7 on 02/22/2022. Prior baseline appeared 9-10 range -Denies melena, hematuria, hematemesis, shortness of breath, chest pain -S/P 1 unit PRBC -Monitor CBC (8) Hyponatremia: Plan: Likely due to diuretics Monitor sodium levels Sodium 131 today (9) Chronic atrial fibrillation: Plan: Chronic atrial fibrillation anticoagulated on Eliquis Digoxin level: 0.7 Digoxin discontinued secondary to SHAN Cardiology on board Continue metoprolol On Eliquis for anticoagulation (10) CAD (coronary artery disease): (11) Ischemic cardiomyopathy: Plan: CAD s/p CABG -Continue atorvastatin, isosorbide, metoprolol succinate (12) Generalized weakness: Plan: -Deconditioning over past couple of months with recurrent hospitalizations -Continue PT/OT (13) H/O prostate cancer: Plan: S/p radiation, Lupron Follows with Dr. Pham urology Reports chronic dysuria UA not suggestive of UTI DVT Px -On Eliquis Code Status Full Code Admission and Anticipated Discharge Date Admission Date: May 01, 2022 Subjective Patient is seen and examined at bedside States having generalized weakness, nausea and feels constipated Discussed with patient's at bedside Poor appetite Denies any chest pain, shortness of breath, dizziness, nausea, abdominal pain No other complaints Review of Systems Review of Systems: All systems reviewed & are unremarkable except as noted in Subjective Physical Exam Physical Exam: Physical Exam: Vitals signs as noted above General Appearance: Thin, frail, elderly, no apparent distress Head: normocephalic, Atraumatic Eyes: normal inspection, EOMI Neck: supple, Trachea midline Respiratory/Chest: Normal breath sounds, CTA, No accessory muscle use,+ left upper chest wound VAC Cardiovascular: S1, S2, No murmur Abdomen/GI:Soft, Non tender, Bowel sounds present Extremities/Musculoskeletal:normal inspection, + left upper extremity mildly swollen Neurologic/Psych:AAOX2, grossly no focal neurological deficits Skin: normal color, warm Results & Data Results & Data ([facility]) Vital Signs (Past 12 Hours) Vital Signs Temp Pulse Resp BP BP Pulse Ox O2 Del Method 05/05/22 11:25 36.5 C 69 17 130/57 L 93 Room Air 05/05/22 06:46 36.6 C 70 16 127/62 93 Room Air 05/05/22 03:02 36.6 C 71 16 109/58 L 93 Room Air Laboratory Results Short CBC 05/05/22 Range/Units 05:35 WBC 7.15 (4.8-10.8) K/ul Hgb 8.5 L (14.0-18.0) g/dl Hct 24.9 L (42.0-52.0) % Plt Count 178 (130-400) K/uL BMP 05/05/22 05:35 Sodium 131 L Potassium 4.1 Chloride 96 L Carbon Dioxide 27 BUN 92 H Creatinine 2.60 H Glucose 116 H Calcium 8.8
[2022-05-05] MEDS: oxyCODONE/ACETAMINOPHEN 5mg/325mg TAB PO PRN (20:35)
[2022-05-05] MEDS: ALPRAZolam 0.5 MG TABLET PO PRN (20:36)
[2022-05-06] MEDS: ceFAZolin 1000MG 1,000 MG/7.5 ML SYR IV SCH ×2 (03:19→15:10)
[2022-05-06] MEDS: TORSEMIDE 10 MG TAB PO SCH (04:05)
--- NOTE | 2022-05-06 07:07 | XRay Report ---
XR chest 1V portable CLINICAL HISTORY: low o2 COMPARISON STUDY: Chest radiograph May 04, 2022. FINDINGS: Left subclavian biventricular pacer/AICD, median sternotomy wires and mediastinal surgical clips are present. Cardiomegaly is unchanged. There is no pneumothorax. Mild interstitial pulmonary e jony has developed. Moderate right and small left pleural effusions with associated bibasilar opaciti es have slightly progressed. IMPRESSION: Interstitial pulmonary edema with moderate right and small left pleural effusions which have increase d in size since prior exam. Associated bibasilar opacities. ACT 112: Negative or not required by law. Electronically signed by: Pranay Shetty M.D. 05/06/2022 7:05 AM
[2022-05-06 07:42] LABS: Hematocrit (blood only) 23.4 % (42.0-52.0); Hemoglobin 7.8 g/dl (14.0-18.0)
[2022-05-06 07:54] LABS: BUN Creatinine Ratio 35.9 (10-20); Calcium 8.6 mg/dl (8.5-10.1); Creatinine Clr Calc Pharmacy 19.3 ml/min; Est GFR (Non-African American) 23.3 ml/min; Potassium 3.7 mmol/L (3.5-5.1)
[2022-05-06] MEDS: CYANOCOBALAMIN (B-12) 500 MCG TABLET PO SCH (08:02)
[2022-05-06] MEDS: ATORVASTATIN 40 MG TAB PO SCH (08:02)
[2022-05-06] MEDS: METOPROLOL SUCC 50MG EXT REL TAB PO SCH (08:02)
[2022-05-06] MEDS: APIXABAN 2.5 MG TAB PO SCH ×2 (08:03→20:58)
[2022-05-06] MEDS: ISOSORBIDE MONO EXTENDED REL 30 MG TABCR PO SCH (08:03)
[2022-05-06] MEDS: PANTOprazole 40 MG TAB PO SCH (08:03)
[2022-05-06] MEDS: DOCUSATE SODIUM 100 MG CAP PO SCH ×2 (08:04→20:58)
[2022-05-06] MEDS: CHOLECALCIFEROL 1,000 UNITS 25 MCG TAB PO SCH (08:04)
[2022-05-06] MEDS: ASCORBIC ACID 500 MG TAB PO SCH (08:04)
[2022-05-06] MEDS ORDERED: SODIUM CHLORIDE 0.9% 250 ML IV PRN (09:14)
--- NOTE | 2022-05-06 11:10 | Nephrology Progress Note ---
Date of Service May 06, 2022 Assessment & Plan (1) SHAN (acute kidney injury): Plan: Patient with acute kidney injury on CKD3 likely due to ATN in setting of inf ected wound +/- cardiorenal syndrome. His renal function has worsened since late 2021 when it ran in the high ones for baseline creatinine (CKD 3B); since February 16 through March 2022, creatinine runs more in the low to mid twos (still CKD 3B). Patient is receiving IV antibiotics per primary team. Creatinine plateau'd 2.5-2.8. No indication for dialysis. Patient is relatively high risk for progression to ESRD. We will continue to monitor renal function closely. Patient is getting a daily BMP. Avoid nephrotoxins and contrast. (2) CKD (chronic kidney disease) stage 3, GFR 30-59 ml/min: Plan: Patient with CKD stage III due to hypertension and heart disease. baseline creatinine as above. (3) Chronic combined systolic and diastolic heart failure: Plan: Patient with ischemic cardiomyopathy, EF 35%. Home diuretic dose is torsemide 40 mg bid. Currently on torsemide to 40 mg daily which he has been receiving basically since admission. >extra dose 40 mg torsemide today after pRBC (4) Acute on chronic anemia: Plan: Admission hemoglobin of 7. Patient received a unit of blood earlier this admission. Hemoglobin of 7.8 today and for another unit pRBC. Monitor and transfuse as needed. Admission and Anticipated Discharge Date Admission Date: May 01, 2022 Subjective cc from pt is constipation/rectal pain; also some pain over L shoulder. no worse sob but does tell me he feels poorly today; daughter bedside; no n/v, no edema, no chest pain Review of Systems Review of Systems: All systems reviewed & are unremarkable except as noted in Subjective Physical Exam Constitutional: well developed, + cachectic and + frail appearing; no acute distress Eyes: EOM intact bilaterally ENMT: Ears: no external ear abnormality Nose: no external nose abnormality Mouth: + dry oral mucous membranes Neck: no nuchal rigidity Respiratory: normal respiratory effort Auscultation: + diminished lung sounds Cardiovascular: Rate/Rhythm: regular rate and regular rhythm Extremities: no edema Gastrointestinal (Abdomen): Inspection/Auscultation: normal bowel sounds Percussion/Palpation: abdomen soft; abdomen nontender Musculoskeletal: Extremities: strength 5/5 throughout Skin: no rashes, warm and dry Neurologic: [place], fluent speech, no tremor Results & Data ([facility]) Vital Signs (Past 12 Hours) Vital Signs Temp Pulse Pulse Resp BP BP Pulse Ox 05/06/22 10:50 37.2 C 71 20 117/53 L 98 05/06/22 10:31 36.3 C L 70 22 115/51 L 97 05/06/22 09:14 05/06/22 06:35 36.4 C L 69 19 126/62 98 05/06/22 03:10 36.4 C L 71 16 115/54 L 98 O2 Del Method O2 Flow Rate 05/06/22 10:50 2 05/06/22 10:31 2 05/06/22 09:14 Nasal Cannula 2 05/06/22 06:35 Nasal Cannula 2 05/06/22 03:10 Nasal Cannula 2 Laboratory Results 05/06/22 06:29 05/06/22 06:29 Diagnostic Findings cxr today Interstitial pulmonary edema with moderate right and small left pleural eff usions which have increased in size since prior exam. Associated bibasilar opacities.
[2022-05-06] MEDS ORDERED: bisacodyL 10 MG SUPP PR PRN (14:51)
--- NOTE | 2022-05-06 14:51 | Surgery Progress Note ---
Date of Service May 06, 2022 Assessment & Plan (1) Biventricular ICD (implantable cardioverter-defibrillator) in place: Plan: Wound vac removed today due to large amount of drainage in vac canister and saturated foam. Clinically, the wound does not appear infected but there is bloody drainage. Will await culture results. Change Aquacel Ag and Optifoam daily. Admission and Anticipated Discharge Date Admission Date: May 01, 2022 Subjective Patient resting in bed, C/O pain of left chest/wound vac. Physical Exam Physical Exam: Prevena wound vac holding suction, but foam is completely saturated. bloody output in vac canister. wound vac removed. skin is macerated from soaked foam. no erythema of the soft tissue, ecchymosis present. incision is together with nylon sutures, gaping between sutures. superior portion with some bloody drainage, no javier purulence, no foul odor. culture obtained from superior and middle incision where gaping is present. wound dressed with Aquacel AG and Optifoam Results & Data ([facility]) Vital Signs (Past 12 Hours) Vital Signs Temp Pulse Pulse Resp BP BP Pulse Ox 05/06/22 12:35 36.8 C 70 18 124/52 L 96 05/06/22 12:25 36.4 C L 70 18 129/65 94 05/06/22 11:35 37.2 C 70 18 130/64 98 05/06/22 11:05 36.4 C L 70 20 121/61 98 05/06/22 10:50 37.2 C 71 20 117/53 L 98 05/06/22 10:31 36.3 C L 70 22 115/51 L 97 05/06/22 09:14 05/06/22 06:35 36.4 C L 69 19 126/62 98 05/06/22 03:10 36.4 C L 71 16 115/54 L 98 O2 Del Method O2 Flow Rate 05/06/22 12:35 05/06/22 12:25 2 05/06/22 11:35 2 05/06/22 11:05 2 05/06/22 10:50 2 05/06/22 10:31 2 05/06/22 09:14 Nasal Cannula 2 05/06/22 06:35 Nasal Cannula 2 05/06/22 03:10 Nasal Cannula 2 PG Care Time/CCT Total # of Minutes Spent Total Time Spent with Patient: Total time spent is greater than 50% in coordination of care (as documented) at patient's floor/unit and/or counseling patient: Coding Level of Care Code 69298 Post Operative Follow-Up Diagnoses Biventricular ICD (implantable cardioverter-defibrillator) in place Z95.810
[2022-05-06] MEDS ORDERED: POLYETHYLENE (MIRALAX) 17 GM PACK PO ONE (15:00)
[2022-05-06] MEDS: ACETAMINOPHEN 325 MG TAB PO PRN ×2 (15:17→23:00)
--- NOTE | 2022-05-06 16:54 | Hospitalist Progress Note ---
Date of Service May 06, 2022 Assessment & Plan (1) Nonhealing surgical wound: Plan: Nonhealing surgical wound at site of ICD Pocket revision on 05/01/[address] Reeves Chest x-ray:Moderate right and small left pleural effusions with associated bibasilar opacities which could reflect atelectasis or consolidation. Radiographic follow-up is recommended. Moderate cardiomegaly. No evidence for pulmonary edema. Continue IV cefazolin for now MRSA screen Negative -wound VAC discontinued l -May need prolonged course of antibiotics Continue Wound care Cardiology and plastic surgery on board ID consulted--pending Input Obtain wound cultures as per surgery recommendations Change Aquacel Ag and Optifoam daily (2) CHB (complete heart block): (3) Biventricular ICD (implantable cardioverter-defibrillator) in place: Plan: S/P ICD (4) SAHN (acute kidney injury): (5) CKD (chronic kidney disease) stage 3, GFR 30-59 ml/min: Plan: SHAN on CKD III Likely ATN High risk for progression to ESRD Monitor renal function Avoid nephrotoxic agents as able Appreciate nephrology input Torsemide dose decreased to 40 mg daily Cr 2.8>2.6>2.4 (6) Chronic combined systolic and diastolic heart failure: Plan: -02/22/2022 echo: EF: 35-39%, mild to moderate AR, moderate MR, severe TR -Recommend dose decreased to 40 mg daily due to SHAN Monitor volume status (7) Acute on chronic anemia: Plan: H/H: 7. Hgb 9.8 on 04/29/22, 7.7 on 02/22/2022. Prior baseline appeared 9-10 range -Denies melena, hematuria, hematemesis, shortness of breath, chest pain -S/P 1 unit PRBC -Monitor CBC And give 1 unit PRBC today (8) Hyponatremia: Plan: Likely due to diuretics Monitor sodium levels Sodium 133 today (9) Chronic atrial fibrillation: Plan: Chronic atrial fibrillation anticoagulated on Eliquis Digoxin level: 0.7 Digoxin discontinued secondary to SHAN Cardiology on board Continue metoprolol On Eliquis for anticoagulation (10) CAD (coronary artery disease): (11) Ischemic cardiomyopathy: Plan: CAD s/p CABG -Continue atorvastatin, isosorbide, metoprolol succinate (12) Generalized weakness: Plan: -Deconditioning over past couple of months with recurrent hospitalizations -Continue PT/OT (13) H/O prostate cancer: Plan: S/p radiation, Lupron Follows with Dr. Pham urology Reports chronic dysuria UA not suggestive of UTI Constipation Continue bowel regimen Encouraged to ambulate as able DVT Px -On Eliquis Code Status Full Code Admission and Anticipated Discharge Date Admission Date: May 01, 2022 Subjective Patient is seen and examined at bedside States feeling better today Weakness, appetite better today Discussed with patient's daughter at bedside Also discussed with nephrology, cardiology and plastic surgery today Still has some constipation Denies any chest pain, shortness of breath, dizziness, nausea, abdominal pain Review of Systems Review of Systems: All systems reviewed & are unremarkable except as noted in Subjective Physical Exam Physical Exam: Physical Exam: Vitals signs as noted above General Appearance: Thin, frail, elderly, no apparent distress Head: normocephalic, Atraumatic Eyes: normal inspection, EOMI Neck: supple, Trachea midline Respiratory/Chest: Normal breath sounds, CTA, No accessory muscle use,+ left upper chest wound VAC Cardiovascular: S1, S2, No murmur Abdomen/GI:Soft, Non tender, Bowel sounds present Extremities/Musculoskeletal:normal inspection, + left upper extremity mildly swollen Neurologic/Psych:AAOX2, grossly no focal neurological deficits Skin: normal color, warm Results & Data Results & Data ([facility]) Vital Signs (Past 12 Hours) Vital Signs Temp Pulse Pulse Resp BP BP Pulse Ox 05/06/22 16:27 70 05/06/22 16:23 36.6 C 69 17 130/60 97 05/06/22 12:35 36.8 C 70 18 124/52 L 96 05/06/22 12:25 36.4 C L 70 18 129/65 94 05/06/22 11:35 37.2 C 70 18 130/64 98 05/06/22 11:05 36.4 C L 70 20 121/61 98 05/06/22 10:50 37.2 C 71 20 117/53 L 98 05/06/22 10:31 36.3 C L 70 22 115/51 L 97 05/06/22 09:14 05/06/22 06:35 36.4 C L 69 19 126/62 98 O2 Del Method O2 Flow Rate 05/06/22 16:27 05/06/22 16:23 Nasal Cannula 2.0 05/06/22 12:35 05/06/22 12:25 2 05/06/22 11:35 2 05/06/22 11:05 2 05/06/22 10:50 2 05/06/22 10:31 2 05/06/22 09:14 Nasal Cannula 2 05/06/22 06:35 Nasal Cannula 2 Laboratory Results Short CBC 05/06/22 Range/Units 06:29 Hgb 7.8 L (14.0-18.0) g/dl Hct 23.4 L (42.0-52.0) % BMP 05/06/22 06:29 Sodium 133 L Potassium 3.7 Chloride 97 L Carbon Dioxide 28 BUN 88 H Creatinine 2.45 H Glucose 119 H Calcium 8.6
[2022-05-06] MEDS: ALPRAZolam 0.5 MG TABLET PO PRN (20:57)
[2022-05-06] MEDS ORDERED: LIDOCAINE 5% OINT 30 GM TUBE EXT STA (22:35)
[2022-05-07] MEDS: ceFAZolin 1000MG 1,000 MG/7.5 ML SYR IV SCH ×2 (03:13→16:36)
[2022-05-07 06:19] LABS: Hemoglobin 10.6 g/dl (14.0-18.0); Mean Corpuscular Hemoglobin 29.7 pg (25.0-34.0); Mean Corpuscular Hgb Conc 34.2 g/dL (32.0-36.0); Mean Corpuscular Volume 86.8 fL (80.0-100.0); Mean Platelet Volume 10.6 fL (9.4-12.4); Nucleated RBC # (auto) 0.02 K/uL (0-0.12); Nucleated RBC % (auto) 0.2 %; Platelet Count 197 K/uL (130-400); RDW Coefficient of Variation 15.7 % (11.5-14.5); RDW Standard Deviation 49.1 fL (36.4-46.3); Red Blood Count 3.57 M/uL (4.70-6.10)
[2022-05-07 07:09] LABS: Calcium 8.8 mg/dl (8.5-10.1); Est GFR (African American) 29.1 ml/min; Est GFR (Non-African American) 25.1 ml/min; Potassium 4.1 mmol/L (3.5-5.1)
--- NOTE | 2022-05-07 09:03 | Surgery Progress Note ---
Date of Service May 07, 2022 Assessment & Plan (1) Biventricular ICD (implantable cardioverter-defibrillator) in place: Plan: Wound of left chest looks stable. Continue daily aquacel ag/optifoam dressing changes and await final wound culture. Admission and Anticipated Discharge Date Admission Date: May 01, 2022 Subjective Patient resting in bed, enjoying breakfast. Complains of pain at incision site. Physical Exam Physical Exam: dressing removed- was freshly changed this AM, There is some blood on the aquacel ag. incision remains mostly intact, some separation at the superior portion with bloody drainage.no erythema of the soft tissue, no foul odor and no purulent drainage. Gram stain from cx yesterday reveals no organisms, culture pending Results & Data ([facility]) Vital Signs (Past 12 Hours) Vital Signs Temp Pulse Pulse Resp BP BP Pulse Ox 05/07/22 03:20 36.4 C L 70 17 159/76 H 94 05/06/22 23:43 72 05/06/22 23:02 36.3 C L 70 16 149/75 H 97 O2 Del Method O2 Flow Rate 05/07/22 03:20 Nasal Cannula 2 05/06/22 23:43 05/06/22 23:02 Room Air PG Care Time/CCT Total # of Minutes Spent Total Time Spent with Patient: Total time spent is greater than 50% in coordination of care (as documented) at patient's floor/unit and/or counseling patient: Coding Level of Care Code 21743 SUB INP/OBS CARE 2/35MIN Diagnoses Biventricular ICD (implantable cardioverter-defibrillator) in place Z95.810
[2022-05-07] MEDS: DOCUSATE SODIUM 100 MG CAP PO SCH ×2 (09:09→20:53)
[2022-05-07] MEDS: ASCORBIC ACID 500 MG TAB PO SCH (09:15)
[2022-05-07] MEDS: APIXABAN 2.5 MG TAB PO SCH ×2 (09:15→20:53)
[2022-05-07] MEDS: CHOLECALCIFEROL 1,000 UNITS 25 MCG TAB PO SCH (09:16)
[2022-05-07] MEDS: ATORVASTATIN 40 MG TAB PO SCH (09:16)
[2022-05-07] MEDS: METOPROLOL SUCC 50MG EXT REL TAB PO SCH (09:17)
[2022-05-07] MEDS: ISOSORBIDE MONO EXTENDED REL 30 MG TABCR PO SCH (09:17)
[2022-05-07] MEDS: CYANOCOBALAMIN (B-12) 500 MCG TABLET PO SCH (09:17)
[2022-05-07] MEDS: PANTOprazole 40 MG TAB PO SCH (09:17)
[2022-05-07] MEDS: TORSEMIDE 10 MG TAB PO SCH (09:18)
--- NOTE | 2022-05-07 10:25 | Nephrology Progress Note ---
Date of Service May 07, 2022 Assessment & Plan (1) SHAN (acute kidney injury): Plan: Patient with acute kidney injury on CKD3 likely due to ATN in setting of inf ected wound +/- cardiorenal syndrome. His renal function has worsened since late 2021 when it ran in the high ones for baseline creatinine (CKD 3B); since February 16 through March 2022, creatinine runs more in the low to mid twos (still CKD 3B). Patient is receiving IV antibiotics per primary team. Creatinine plateau'd 2.5-2.8. No indication for dialysis. Patient is relatively high risk for progression to ESRD. We will continue to monitor renal function closely. Patient is getting a daily BMP. Avoid nephrotoxins and contrast. -torsemide dose as below appropriate (2) CKD (chronic kidney disease) stage 3, GFR 30-59 ml/min: Plan: Patient with CKD stage III due to hypertension and heart disease. baseline creatinine as above. (3) Chronic combined systolic and diastolic heart failure: Plan: Patient with ischemic cardiomyopathy, EF 35%. Home diuretic dose is torsemide 40 mg bid. Currently on torsemide to 40 mg daily which he has been receiving basically since admission. >continue for today torsemide 40 mg daily; consider extra dose 40 mg torsemide if acutely dyspneic (4) Acute on chronic anemia: Plan: Admission hemoglobin of 7. Patient received 2 units of blood this admission. hgb 11 today. Monitor and transfuse as needed. Admission and Anticipated Discharge Date Admission Date: May 01, 2022 Subjective c/o marked fatigue, generalized weakness; ongoing rectal discomfort but is moving bowels now; no muscskel pain and feels breathing stable/good Review of Systems Review of Systems: All systems reviewed & are unremarkable except as noted in Subjective Physical Exam Constitutional: well developed, + cachectic, + frail appearing and + lethargic (/tired); no acute distress Eyes: EOM intact bilaterally ENMT: Ears: no external ear abnormality Nose: no external nose abnormality Mouth: + dry oral mucous membranes Neck: no nuchal rigidity Respiratory: normal respiratory effort Auscultation: + diminished lung sounds Cardiovascular: Rate/Rhythm: regular rate and regular rhythm Extremities: no edema Gastrointestinal (Abdomen): Inspection/Auscultation: normal bowel sounds Percussion/Palpation: abdomen soft; abdomen nontender Musculoskeletal: Extremities: + abnormal strength (marked generalized weakness but [place]) Skin: no rashes, warm and dry Neurologic: fluent speech, no tremor Psychiatric: Orientation: oriented x 3 Results & Data ([facility]) Vital Signs (Past 12 Hours) Vital Signs Temp Pulse Pulse Resp BP BP Pulse Ox 05/07/22 09:10 70 128/69 05/07/22 03:20 36.4 C L 70 17 159/76 H 94 05/06/22 23:43 72 05/06/22 23:02 36.3 C L 70 16 149/75 H 97 O2 Del Method O2 Flow Rate 05/07/22 09:10 05/07/22 03:20 Nasal Cannula 2 05/06/22 23:43 05/06/22 23:02 Room Air Laboratory Results 05/07/22 05:37 05/07/22 05:37
[2022-05-07] MEDS ORDERED: LIDOCAINE 5% OINT 30 GM TUBE EXT PRN (10:40)
[2022-05-07] MEDS: oxyCODONE/ACETAMINOPHEN 5mg/325mg TAB PO PRN ×2 (10:51→20:52)
--- NOTE | 2022-05-07 14:18 | Palliative Care Consultation ---
Date of Consultation May 07, 2022 Assessment & Plan (1) Palliative care by specialist: Met with pt/family. Provided overview of Palliative Medicine, a subspecialty that provides specialized medical care for people living with a serious illness by offering a focus on quality of life. Palliative Medicine is often conflated with hospice: I advised patient/family that Palliative and hospice can be partners but we are not the same. It is important to understand the difference so that we may be informed, and not afraid. Palliative Medicine works to improve QOL through reduction of symptom burden/more control over their illness, for both the patient and family. Palliative medicine clinicians are board certified, specially-trained and another member of the patient's medical care team. We often provide an extra layer of support because our care is based on the needs of the patient, not the prognosis; as such, it's appropriate at any age/advancing stage of a serious illness and can be provided along with curative treatment. Palliative Medicine clinicians are also trained in advanced communication methodologies, to facilitate complex discussions about advanced illness planning, which are needed to help assure that the treatment choices match the patient's goals, aka delivering Goal Concordant care. Finally, we discussed that hospice is a visiting nurse service that focuses on care delivered at the very end of life for patients with terminal illness, with life expectancy less than 6 month. (2) Counseling regarding advanced directives and goals of care: In addition to the time spent on initial consult and evaluation, I spent an additional 40 min in face to face ACP/GOC discussion at bedside with pt and : I met with Mr & Mrs Kerr/room 241-2. We had a good conversation/somewhat limited by pt ability to stay engaged/kept drifting asleep. is direct with her feelings that therapies are not bringing about the hoped for improvement and he continues to overall decline. She worries he is suffering more and also feels he has been inconsistent with his goals. When speaking with pt he was able to tell me he knows he has not recovered as easily or as well as he was hoping, that things may not work out the way he hopes for but he is willing to try meds etc so long as they might help but if they don't or he dies, he is ok with that bc he has had a good long life. He also told that he feels this pacer pocket infection issue will not improve and may be what ends his life. On the whole he basically feels worse over the past 6-8 mos in spite of escalated interventions. Of note, he affirmed a code of DNR/DNI, do not use artificial life support in event of natural . From a Goals of care perspective, he is for now willing to try to treat what's treatable and fix what's fixable. will not be coming tomorrow due to her own appointments but we have agreed to follow up on . I asked to them to further discuss the "what if" scenario of his wishes in the event things are not getting better, etc. also shared that the adult children, dtr 58yo/teaches at [employer] [facility] [employer] and son 62yo are having a harder time accepting pt's mortality etc. (3) Nonhealing surgical wound: (4) Biventricular ICD (implantable cardioverter-defibrillator) in place: (5) Acute kidney injury superimposed on CKD: (6) Chronic combined systolic and diastolic heart failure: (7) CKD (chronic kidney disease) stage 3, GFR 30-59 ml/min: (8) CAD (coronary artery disease): (9) Ischemic cardiomyopathy: (10) Chronic atrial fibrillation: (11) Generalized weakness: due to all of the above Plan ACP discussion as noted above. I will follow up with pt and on . Code status us changed to DNR/DNI in accordance with pt expressed wishes as reflected in ACP discussion above. I have updated Dr Malloy and Jany MOREIRA. Rosanne Carrera DNP Clinical Director, Palliative Medicine History of Present Illness Reason for Consultation: On 05/07/22 @ 13:53 Ramy Solares Wrote To Ese Hollis Please address goals of care. Family request Attending Physician: Ramy Solares MD History of Present Illness 86yo gentleman admitted 05/01/22 with non healing wound from BiV ICD implant. per cardiology notes, pt reported "a mechanical fall about a month after his BiV ICD generator change which was complicated with a hematoma developing over the device site there was a delay in our office finding out about this and by the time we were alerted the incision was opened up. Pt was admitted to [facility] and had direct abx delivered directly to into the pocket for a few days for it was too high risk to laser extraction of the chronic leads. He was eventually brought back to the EP lab and had a new generator placed and the incision closed. During this wound healing the incision started to scab over and non healing." Current issues as follows: Non-healing surgical wound at site of ICD: Pocket revision on 05/01/[address] Reeves; remains on IV Cefazolin, MRSA neg screen; +wound vac CXR revealed moderate right and small left pleural effusions with associated bibasilar opacities which could reflect atelectasis or consolidation. Moderate cardiomegaly. No evidence for pulmonary edema. 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 CKD (chronic kidney disease) stage 3, GFR 30-59 ml/min: currently has SHAN on CKD III-CKD IV, likely ATN and he is HIGH risk for progression to ESRD Chronic combined systolic and diastolic heart failure: 02/22/2022 echo: EF: 35- 39%, mild to moderate AR, moderate MR, severe TR Acute on chronic anemia: s/p one unit PRBCs Hyponatremia: due to diuretics Chronic atrial fibrillation: +AC on Eliquis, Digoxin discontinued secondary to SHAN CAD (coronary artery disease Ischemic cardiomyopathy: CAD s/p CABG: on medical mgt with atorvastatin, isosorbide, metoprolol succinate Generalized weakness: from all of the above, progressive deconditioning due to recurrent admission and progression of several advanced/incurable chronic diseases Past hx prostate cancer: s/p radiation, Lupron; followed by Dr. Pham urology; +chronic dysuria; no UTI on labs here pt is seen bedside with present. he is sleeping when I arrived and tells me he had a rough night, was up all night with frequent BMs as a result of aggressive medical mgt of his constipation during the daytime "everything worked really well to clean me out, just all at once overnight." As a result he did not sleep and is now very tired. Allergies Allergy/AdvReac Type Severity Reaction Status Date / Time bee venom protein (honey bee) Allergy Unknown WASPS Verified 05/01/22 07:49 lisinopril Allergy Unknown COUGH Verified 05/01/22 07:49 mirtazapine Allergy Unknown FLUSING Verified 05/01/22 07:49 FEELING streptokinase Allergy Unknown WAS TOLD Verified 05/01/22 07:49 NOT TO TAKE POISON PO Allergy Unknown BLISTERS Uncoded 04/24/16 13:06 Home Medications Medication Instructions Recorded Confirmed Type alprazolam 0.5 mg tablet 0.5 mg PO HS PRN Insomnia 05/03/22 05/03/22 History amoxicillin 500 mg-potassium 1 tab PO BID 05/03/22 05/03/22 History clavulanate 125 mg tablet apixaban 2.5 mg tablet (Eliquis) 2.5 mg PO BID 05/03/22 05/03/22 History ascorbic acid (vitamin C) 500 mg 500 mg PO DAILY 05/03/22 05/03/22 History tablet (Vitamin C) atorvastatin 40 mg tablet 40 mg PO DAILY 05/03/22 05/03/22 History cholecalciferol (vitamin D3) 50 2,000 unit PO DAILY 05/03/22 05/03/22 History mcg (2,000 unit) capsule (Vitamin D3) cyanocobalamin (vitamin B-12) 1,000 mcg PO DAILY 05/03/22 05/03/22 History 1,000 mcg tablet digoxin 125 mcg (0.125 mg) tablet 62.5 mcg PO UD 05/03/22 05/03/22 History isosorbide mononitrate 30 mg 30 mg PO DAILY 05/03/22 05/03/22 History tablet,extended release 24 hr metoprolol succinate 50 mg 50 mg PO DAILY 05/03/22 05/03/22 History tablet,extended release 24 hr omeprazole 20 mg capsule,delayed 20 mg PO DAILY 05/03/22 05/03/22 History release torsemide 20 mg tablet 40 mg PO BID 05/03/22 05/03/22 History Patient History Medical History (Updated 05/07/22 @ 14:23 by Rosanne Carrera DNP) Acute kidney injury superimposed on CKD Biventricular ICD (implantable cardioverter-defibrillator) in place CAD (coronary artery disease) CHB (complete heart block) Chronic atrial fibrillation Chronic combined systolic and diastolic heart failure CKD (chronic kidney disease) stage 3, GFR 30-59 ml/min Counseling regarding advanced directives and goals of care GERD (gastroesophageal reflux disease) H/O prostate cancer Hepatitis C Ischemic cardiomyopathy Liver cirrhosis Palliative care by specialist Surgical History (Updated 05/01/22 @ 07:57 by Kayli Reeves DO) Hx of CABG Social History Smoking Status: Former smoker Second Hand Exposure: No; Do You Dip or Chew Tobacco: No; Tobacco Cessation Education Requested by Patient: No Hx Alcohol Use: No Hx Substance Use: No Preferred Language: Romansh Communication Ability: Effective 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 Current Living Situation: Spouse Feels Safe at Home: Yes Assistive Devices: Cane and Walker Review of Systems Review of Systems: All systems reviewed & are unremarkable except as noted in Subjective Physical Exam Constitutional: + ill appearing, + cachectic and + frail appearing Eyes: PERRL, conjunctivae normal, anicteric sclerae ENMT: external ear and nose normal, oropharynx normal Mouth: + dry oral mucous membranes Neck: trachea midline, no thyromegaly Respiratory: normal respiratory effort Auscultation: + diminished lung sounds and + crackles Cardiovascular: Rate/Rhythm: + irregularly irregular Heart Sounds: + murmur Gastrointestinal (Abdomen): scaphoid abdomen, non tender, BS+ Musculoskeletal: generalized weakness Skin: pale, scatt ecchymoses, cool Neurologic: AAOx3 but very tired and easily drifts off to sleep if not speaking directly during discussion Results & Data ([facility]) Vital Signs (Past 12 Hours) Vital Signs Temp Pulse Resp BP BP Pulse Ox O2 Del Method 05/07/22 11:38 36.6 C 72 18 127/64 95 Nasal Cannula 05/07/22 08:00 Nasal Cannula 05/07/22 09:10 70 128/69 05/07/22 03:20 36.4 C L 70 17 159/76 H 94 Nasal Cannula O2 Flow Rate 05/07/22 11:38 2 05/07/22 08:00 2 05/07/22 09:10 05/07/22 03:20 2 Laboratory Results labs and data reviewed Diagnostic Findings labs and data reviewed PG Care Time/CCT Total # of Minutes Spent Total Time Spent: 100 Total Time Spent with Patient: Total time spent is greater than 50% in coordination of care (as documented) at patient's floor/unit and/or counseling patient: I spent 100 minutes overall addressing this case: 15 in medical data review (high complexity/OSH data review)/discussion with referring provider(s) and/or preparation for the visit 20 in direct interaction with the patient at bedside additional 40 min Advance Care Planning/Goals of Care discussions as detailed above in note (must be >16min) 10 in subsequent review and synthesis of assessment and plan with pt and , inlcuding requested conversation for pt and pt to have prior to our meeting 15 in communicating with other providers regarding the patient's case: nursing, primary team Prolonged Care Time Prolonged Care Time: Yes Advanced Care Planning 89187 Advanced Care Planning 30 Min 54789 Advanced Care Planning Additional 30 [place] [address] IN/OBS CONSULT LVL 5,80M Patient Type New History Comprehensive Exam Comprehensive Medical Decision Making High Complexity Diagnoses Palliative care by specialist Z51.5 Counseling regarding advanced directives and goals of care Z71.89 Nonhealing surgical wound T81.89XA Biventricular ICD (implantable cardioverter-defibrillator) in place Z95.810 Acute kidney injury superimposed on CKD N17.9; N18.9 Chronic combined systolic and diastolic heart failure I50.42 CKD (chronic kidney disease) stage 3, GFR 30-59 ml/min N18.30 CAD (coronary artery disease) I25.10 Ischemic cardiomyopathy I25.5 Chronic atrial fibrillation I48.20 Generalized weakness R53.1 Additional Codes Prolonged Care Time - Prolonged Care Time: Yes ([id number]) Advanced Care Planning - 76298 Advanced Care Planning 30 Min: 19800 Advanced Care Planning 30 Min ([id number]) Advanced Care Planning - 36141 Advanced Care Planning Additional 30 Min: 17638 Advanced Care Planning Additional 30 Min ([id number])
--- NOTE | 2022-05-07 16:40 | Hospitalist Progress Note ---
Date of Service May 07, 2022 Assessment & Plan (1) Nonhealing surgical wound: Plan: Nonhealing surgical wound at site of ICD Pocket revision on 05/01/[address] Reeves Chest x-ray:Moderate right and small left pleural effusions with associated bibasilar opacities which could reflect atelectasis or consolidation. Radiographic follow-up is recommended. Moderate cardiomegaly. No evidence for pulmonary edema. -wound VAC discontinued on 05/06/22 -Wound culture growing gram-negative bacilli Continue IV antibiotics for 2 weeks per ID and then transition to PO antibiotics per ID MRSA screen Negative IV cefazolin changed to Rocephin on 05/07/2022 -Needs life long course of PO antibiotics based on sensitivities Continue Wound care Appreciate Cardiology and plastic surgery Input Appreciate ID Input Continue wound care with daily dressing changes recommended by surgery Appreciate palliative care input (2) CHB (complete heart block): (3) Biventricular ICD (implantable cardioverter-defibrillator) in place: Plan: S/P ICD (4) SHAN (acute kidney injury): (5) CKD (chronic kidney disease) stage 3, GFR 30-59 ml/min: Plan: SHAN on CKD III Likely ATN High risk for progression to ESRD Monitor renal function Avoid nephrotoxic agents as able Appreciate nephrology input Torsemide dose decreased to 40 mg daily Cr 2.8>2.6>2.4>2.3 Poor oral intake (6) Chronic combined systolic and diastolic heart failure: Plan: -02/22/2022 echo: EF: 35-39%, mild to moderate AR, moderate MR, severe TR -Recommend dose decreased to 40 mg daily due to SHAN Monitor volume status (7) Acute on chronic anemia: Plan: H/H: 09/26. Hgb 9.8 on 04/29/22, 7.7 on 02/22/2022. Prior baseline appeared 9-10 range -Denies melena, hematuria, hematemesis, shortness of breath, chest pain -S/P 2 units PRBC -Monitor CBC Hb 10.6 today (8) Hyponatremia: Plan: Likely due to diuretics Monitor sodium levels Sodium 133 today (9) Chronic atrial fibrillation: Plan: Chronic atrial fibrillation anticoagulated on Eliquis Digoxin level: 0.7 Digoxin discontinued secondary to SHAN Cardiology on board Continue metoprolol On Eliquis for anticoagulation (10) CAD (coronary artery disease): (11) Ischemic cardiomyopathy: Plan: CAD s/p CABG -Continue atorvastatin, isosorbide, metoprolol succinate (12) Generalized weakness: Plan: -Deconditioning over past couple of months with recurrent hospitalizations -Continue PT/OT (13) H/O prostate cancer: Plan: S/p radiation, Lupron Follows with Dr. Pham urology Reports chronic dysuria UA not suggestive of UTI Constipation Continue bowel regimen--hold for diarrhea DVT Px -On Eliquis Code Status Full Code--- patient prefers to be full code. Family agrees with same. (Of note: Patient have a sleep while in traction with palliative care as per patient's ) Admission and Anticipated Discharge Date Admission Date: May 01, 2022 Subjective Patient is seen and examined at bedside Lethargic and very tired today States having some anal pain from diarrhea Discussed with patient's at bedside Also discussed with palliative care Poor sleep overnight Denies any chest pain, shortness of breath, dizziness, nausea, abdominal pain Review of Systems Review of Systems: All systems reviewed & are unremarkable except as noted in Subjective Physical Exam Physical Exam: Physical Exam: Vitals signs as noted above General Appearance: Thin, frail, elderly, no apparent distress Head: normocephalic, Atraumatic Eyes: normal inspection, EOMI Neck: supple, Trachea midline Respiratory/Chest: Normal breath sounds, CTA, No accessory muscle use,+ left upper chest wound dressing Cardiovascular: S1, S2, No murmur Abdomen/GI:Soft, Non tender, Bowel sounds present Extremities/Musculoskeletal:normal inspection, + left upper extremity mildly swollen Neurologic/Psych:AAOX2, grossly no focal neurological deficits Skin: normal color, warm Results & Data Results & Data ([facility]) Vital Signs (Past 12 Hours) Vital Signs Temp Pulse Resp BP Pulse Ox O2 Del Method O2 Flow Rate 05/07/22 15:49 36.5 C 69 17 121/60 96 Nasal Cannula 2 05/07/22 11:38 36.6 C 72 18 127/64 95 Nasal Cannula 2 05/07/22 08:00 Nasal Cannula 2 05/07/22 09:10 70 128/69 Laboratory Results Short CBC 05/07/22 Range/Units 05:37 WBC 11.00 H (4.8-10.8) K/ul Hgb 10.6 L (14.0-18.0) g/dl Hct 31.0 L (42.0-52.0) % Plt Count 197 (130-400) K/uL BMP 05/07/22 05:37 Sodium 133 L Potassium 4.1 Chloride 95 L Carbon Dioxide 30 BUN 85 H Creatinine 2.30 H Glucose 122 H Calcium 8.8
[2022-05-07] MEDS: cefTRIAXone SODIUM 1,000 MG in DEXTROSE 5% AD-VAN 50 ML IV SCH (18:31)
[2022-05-07] MEDS: ALPRAZolam 0.5 MG TABLET PO PRN (20:51)
[2022-05-08 06:40] LABS: Hematocrit (blood only) 31.2 % (42.0-52.0); Hemoglobin 10.3 g/dl (14.0-18.0); Mean Corpuscular Hemoglobin 29.5 pg (25.0-34.0); Mean Corpuscular Volume 89.4 fL (80.0-100.0); Mean Platelet Volume 10.8 fL (9.4-12.4); Platelet Count 208 K/uL (130-400); RDW Coefficient of Variation 15.9 % (11.5-14.5); RDW Standard Deviation 51.1 fL (36.4-46.3); Red Blood Count 3.49 M/uL (4.70-6.10); White Blood Count 7.46 K/ul (4.8-10.8)
[2022-05-08 06:43] LABS: BUN Creatinine Ratio 34.9 (10-20); Calcium 8.7 mg/dl (8.5-10.1); Creatinine Clr Calc Pharmacy 20.2 ml/min; Est GFR (African American) 28.8 ml/min; Est GFR (Non-African American) 24.9 ml/min; Potassium 4.6 mmol/L (3.5-5.1)
--- NOTE | 2022-05-08 07:59 | Nephrology Progress Note ---
Date of Service May 08, 2022 Assessment & Plan (1) SHAN (acute kidney injury): Plan: Patient with acute kidney injury on CKD3 likely due to ATN in setting of infecte d wound +/- cardiorenal syndrome. His renal function has worsened since late 2021 when it ran in the high ones for baseline creatinine (CKD 3B); since February 16 through March 2022, creatinine runs more in the low to mid twos (still CKD 3B). Patient is receiving IV antibiotics per primary team. Creatinine plateau'd 2.5-2.8 recently but now at baseilne x 48 hrs. No indication for dialysis and this procedure may not fit his goals of care. We will continue to monitor renal function closely. Patient is getting a daily BMP. Avoid nephrotoxins and contrast. -increase torsemide dose as below (2) CKD (chronic kidney disease) stage 3, GFR 30-59 ml/min: Plan: Patient with CKD stage III due to hypertension and heart disease. baseline creatinine as above. (3) Chronic combined systolic and diastolic heart failure: Plan: Patient with ischemic cardiomyopathy, EF 35%. Home diuretic dose is torsemide 40 mg bid. Currently on torsemide to 40 mg daily which he has been receiving basically since admission. >increase torsemide to 40 mg bid17; consider extra dose 40 mg torsemide if acutely dyspneic (4) Acute on chronic anemia: Plan: Admission hemoglobin of 7. Patient received 2 units of blood this admission. hgb 1o today, dropping slightly. Monitor and transfuse as needed. Admission and Anticipated Discharge Date Admission Date: May 01, 2022 Subjective feels a bit better today; 4 BM by the time I saw him on afternoon rounds; still weak and tired; no orthopnea, no n/v, no new/worrisome voiding concerns; does c/o intermittent L arm pain, waxes/wanes Review of Systems Review of Systems: All systems reviewed & are unremarkable except as noted in Subjective Physical Exam Constitutional: well developed, + cachectic, + frail appearing and + lethargic (/tired); no acute distress Eyes: EOM intact bilaterally ENMT: Ears: no external ear abnormality Nose: no external nose abnormality Mouth: + dry oral mucous membranes Neck: no nuchal rigidity Respiratory: normal respiratory effort Auscultation: + diminished lung sounds Cardiovascular: Rate/Rhythm: regular rate and regular rhythm Extremities: no edema Gastrointestinal (Abdomen): Inspection/Auscultation: normal bowel sounds Percussion/Palpation: abdomen soft; abdomen nontender Musculoskeletal: Extremities: strength 5/5 throughout and + abnormal strength (marked generalized weakness but [place]) Skin: no rashes, warm and dry VAC L shoulder/pacer pocket Psychiatric: Orientation: oriented x 3 Results & Data ([facility]) Vital Signs (Past 12 Hours) Vital Signs Temp Pulse Pulse Resp BP Pulse Ox O2 Del Method 05/08/22 07:40 36.4 C L 70 18 132/72 95 Nasal Cannula 05/08/22 03:32 36.5 C 69 16 107/63 96 Nasal Cannula 05/07/22 23:50 70 05/07/22 23:35 36.5 C 70 16 113/65 96 Nasal Cannula 05/07/22 21:16 Nasal Cannula O2 Flow Rate 05/08/22 07:40 2 05/08/22 03:32 2 05/07/22 23:50 05/07/22 23:35 2 05/07/22 21:16 2 Laboratory Results 05/08/22 05:43 05/08/22 05:43
[2022-05-08] MEDS: APIXABAN 2.5 MG TAB PO SCH ×2 (08:34→20:50)
[2022-05-08] MEDS: TORSEMIDE 10 MG TAB PO SCH ×2 (08:35→17:35)
[2022-05-08] MEDS: ACETAMINOPHEN 325 MG TAB PO PRN (08:35)
[2022-05-08] MEDS: ISOSORBIDE MONO EXTENDED REL 30 MG TABCR PO SCH (08:35)
[2022-05-08] MEDS: DOCUSATE SODIUM 100 MG CAP PO SCH (08:36)
[2022-05-08] MEDS: CHOLECALCIFEROL 1,000 UNITS 25 MCG TAB PO SCH (08:36)
[2022-05-08] MEDS: CYANOCOBALAMIN (B-12) 500 MCG TABLET PO SCH (08:36)
[2022-05-08] MEDS: ASCORBIC ACID 500 MG TAB PO SCH (08:36)
[2022-05-08] MEDS: PANTOprazole 40 MG TAB PO SCH (08:36)
[2022-05-08] MEDS: ATORVASTATIN 40 MG TAB PO SCH (08:36)
[2022-05-08] MEDS: METOPROLOL SUCC 50MG EXT REL TAB PO SCH (08:36)
[2022-05-08] MEDS: ADVANCED PROBIOTIC 1250 MG CAPSULE PO SCH (08:37)
--- NOTE | 2022-05-08 10:48 | Surgery Progress Note ---
Date of Service May 08, 2022 Assessment & Plan (1) Biventricular ICD (implantable cardioverter-defibrillator) in place: Plan: Continue daily Aqucel Ag/Optifoam. Patient is on appropriate abx. Admission and Anticipated Discharge Date Admission Date: May 01, 2022 Supervising Physician Co-Signing Physician Notes Seen today with Laura. Left chest incision is intact, but with bloody drainage, likely old hematoma. Skin appears viable, no cellulitis. Sutures are intact. Continue Aquacel Ag and bordered foam for now. Antibiotics including suppression regimen per ID. Subjective Patient seen today with Dr. Palma. Pain at incision site is improved. Wound culture grew Klebsiella pneumonia. Sensitive to cefazolin. Physical Exam Physical Exam: dressing removed. bloody output still from superior portion of incision. no erythema of soft tissue or purulent drainage. Results & Data ([facility]) Vital Signs (Past 12 Hours) Vital Signs Temp Pulse Pulse Resp BP Pulse Ox O2 Del Method 05/08/22 08:00 70 05/08/22 07:40 36.4 C L 70 18 132/72 95 Nasal Cannula 05/08/22 03:32 36.5 C 69 16 107/63 96 Nasal Cannula 05/07/22 23:50 70 05/07/22 23:35 36.5 C 70 16 113/65 96 Nasal Cannula O2 Flow Rate 05/08/22 08:00 05/08/22 07:40 2 05/08/22 03:32 2 05/07/22 23:50 05/07/22 23:35 2 PG Care Time/CCT Total # of Minutes Spent Total Time Spent with Patient: Total time spent is greater than 50% in coordination of care (as documented) at patient's floor/unit and/or counseling patient: Coding Level of Care Code 84841 SUB INP/OBS CARE 04/03MIN Diagnoses Biventricular ICD (implantable cardioverter-defibrillator) in place Z95.810
[2022-05-08] MEDS ORDERED: DOCUSATE SODIUM 100 MG CAP PO PRN (12:01)
[2022-05-08] MEDS: oxyCODONE/ACETAMINOPHEN 5mg/325mg TAB PO PRN ×2 (15:08→20:49)
--- NOTE | 2022-05-08 16:47 | Hospitalist Progress Note ---
Date of Service May 08, 2022 Assessment & Plan (1) Nonhealing surgical wound: Plan: Nonhealing surgical wound at site of ICD Pocket revision on 05/01/[address] Reeves Chest x-ray:Moderate right and small left pleural effusions with associated bibasilar opacities which could reflect atelectasis or consolidation. Radiographic follow-up is recommended. Moderate cardiomegaly. No evidence for pulmonary edema. -wound VAC discontinued on 05/06/22 -Wound culture growing Klebsiella pneumoniae Continue IV antibiotics for 2 weeks per ID and then transition to PO antibiotics per ID MRSA screen Negative IV cefazolin changed to Rocephin on 05/07/2022 -Needs life long course of PO antibiotics based on sensitivities Continue Wound care Appreciate Cardiology and plastic surgery Input Appreciate ID Input Continue wound care with daily dressing changes recommended by surgery Appreciate palliative care input Continue current management (2) CHB (complete heart block): (3) Biventricular ICD (implantable cardioverter-defibrillator) in place: Plan: S/P ICD NSVTs Asymptomatic Continue current medications Monitor (4) SHAN (acute kidney injury): (5) CKD (chronic kidney disease) stage 3, GFR 30-59 ml/min: Plan: SHAN on CKD III Likely ATN High risk for progression to ESRD Monitor renal function Avoid nephrotoxic agents as able Appreciate nephrology input Torsemide dose decreased to 40 mg daily Cr 2.8>2.6>2.4>2.3 Poor oral intake (6) Chronic combined systolic and diastolic heart failure: Plan: -02/22/2022 echo: EF: 35-39%, mild to moderate AR, moderate MR, severe TR -Monitor volume status -Continue torsemide as recommended by nephrology (7) Acute on chronic anemia: Plan: H/H: 09/26. Hgb 9.8 on 04/29/22, 7.7 on 02/22/2022. Prior baseline appeared 9-10 range -Denies melena, hematuria, hematemesis, shortness of breath, chest pain -S/P 2 units PRBC -Monitor CBC Hb 10.3 today (8) Hyponatremia: Plan: Likely due to diuretics Monitor sodium levels Sodium 133 today (9) Chronic atrial fibrillation: Plan: Chronic atrial fibrillation anticoagulated on Eliquis Digoxin level: 0.7 Digoxin discontinued secondary to SHAN Cardiology on board Continue metoprolol On Eliquis for anticoagulation (10) CAD (coronary artery disease): (11) Ischemic cardiomyopathy: Plan: CAD s/p CABG -Continue atorvastatin, isosorbide, metoprolol succinate (12) Generalized weakness: Plan: -Deconditioning over past couple of months with recurrent hospitalizations -Continue PT/OT (13) H/O prostate cancer: Plan: S/p radiation, Lupron Follows with Dr. Pham urology Reports chronic dysuria UA not suggestive of UTI Constipation Continue bowel regimen--hold for diarrhea DVT Px -On Eliquis Code Status Full Code--- patient/Family prefers to be full code. Discussed on 05/07/22 Admission and Anticipated Discharge Date Admission Date: May 01, 2022 Subjective Patient is seen and examined at bedside More alert, awake today Feels better States having some soreness at the site of ICD Had 3 bowel movements today Denies any chest pain, shortness of breath, dizziness, nausea, abdominal pain Review of Systems Review of Systems: All systems reviewed & are unremarkable except as noted in Subjective Physical Exam Physical Exam: Physical Exam: Vitals signs as noted above General Appearance: Thin, frail, elderly, no apparent distress Head: normocephalic, Atraumatic Eyes: normal inspection, EOMI Neck: supple, Trachea midline Respiratory/Chest: Normal breath sounds, CTA, No accessory muscle use,+ left upper chest wound dressing Cardiovascular: S1, S2, No murmur Abdomen/GI:Soft, Non tender, Bowel sounds present Extremities/Musculoskeletal:normal inspection, + left upper extremity mildly swollen Neurologic/Psych:AAOX2, grossly no focal neurological deficits Skin: normal color, warm Results & Data Results & Data ([facility]) Vital Signs (Past 12 Hours) Vital Signs Temp Pulse Pulse Resp BP BP Pulse Ox 05/08/22 15:23 36.2 C L 70 19 120/62 97 05/08/22 15:15 70 05/08/22 10:00 05/08/22 08:00 70 05/08/22 07:40 36.4 C L 70 18 132/72 95 O2 Del Method O2 Flow Rate 05/08/22 15:23 Room Air 05/08/22 15:15 05/08/22 10:00 Nasal Cannula 2 05/08/22 08:00 05/08/22 07:40 Nasal Cannula 2 Laboratory Results Short CBC 05/08/22 Range/Units 05:43 WBC 7.46 (4.8-10.8) K/ul Hgb 10.3 L (14.0-18.0) g/dl Hct 31.2 L (42.0-52.0) % Plt Count 208 (130-400) K/uL [facility] 05/08/22 05:43 Sodium 133 L Potassium 4.6 Chloride 96 L Carbon Dioxide 32 BUN 81 H Creatinine 2.32 H Glucose 105 H Calcium 8.7
[2022-05-08] MEDS: cefTRIAXone SODIUM 1,000 MG in DEXTROSE 5% AD-VAN 50 ML IV SCH (17:35)
[2022-05-08] MEDS: ALPRAZolam 0.5 MG TABLET PO PRN (20:50)
[2022-05-09 06:52] LABS: Hematocrit (blood only) 31.2 % (42.0-52.0); Hemoglobin 10.1 g/dl (14.0-18.0); Mean Corpuscular Hemoglobin 29.2 pg (25.0-34.0); Mean Corpuscular Hgb Conc 32.4 g/dL (32.0-36.0); Mean Corpuscular Volume 90.2 fL (80.0-100.0); Mean Platelet Volume 10.4 fL (9.4-12.4); Platelet Count 211 K/uL (130-400); RDW Coefficient of Variation 15.9 % (11.5-14.5); RDW Standard Deviation 51.6 fL (36.4-46.3); Red Blood Count 3.46 M/uL (4.70-6.10); White Blood Count 8.01 K/ul (4.8-10.8)
[2022-05-09 07:14] LABS: BUN Creatinine Ratio 37.6 (10-20); Calcium 8.7 mg/dl (8.5-10.1); Creatinine Clr Calc Pharmacy 20.6 ml/min; Est GFR (African American) 29.3 ml/min; Est GFR (Non-African American) 25.3 ml/min; Magnesium 2.4 mg/dl (1.7-2.4); Potassium 4.3 mmol/L (3.5-5.1)
--- NOTE | 2022-05-09 09:32 | Nephrology Progress Note ---
Date of Service May 09, 2022 Assessment & Plan (1) SHAN (acute kidney injury): Plan: Patient with acute kidney injury on CKD3 likely due to ATN in setting of infecte d wound +/- cardiorenal syndrome. His chronic baseline renal function has worsened since late 2021 when it ran in the high ones for baseline creatinine (CKD 3B); since February 16 through March 2022, creatinine runs more in the low to mid twos (still CKD 3B). Patient is receiving IV antibiotics per primary team. Creatinine plateau'd 2.5-2.8 recently but now at baseline x 72 hrs. We will continue to monitor renal function closely. Patient is getting a daily BMP. Avoid nephrotoxins and contrast. -Continue recently increased torsemide dose as below (2) CKD (chronic kidney disease) stage 3, GFR 30-59 ml/min: Plan: Patient with CKD stage III due to hypertension and heart disease. baseline creatinine as above. -will follow peripherally -daily bmp -if pt is d/c to rehab soon, recommend weekly bmp and hospital discharge appt w/ me or my partners at [facility] in 3-4 wks after d/c (3) Chronic combined systolic and diastolic heart failure: Plan: Patient with ischemic cardiomyopathy, EF 35%. Home diuretic dose is torsemide 40 mg bid. Currently on torsemide to 40 mg daily which he has been receiving basically since admission. >i continue torsemide 40 mg bid17; consider extra dose 40 mg torsemide if acutely dyspneic (4) Acute on chronic anemia: Plan: Admission hemoglobin of 7. Patient received 2 units of blood this admission. hgb 10 today, dropping slightly. Monitor and transfuse as needed. Admission and Anticipated Discharge Date Admission Date: May 01, 2022 Subjective no interval acute events. at bedside. no dyspnea or orthopnea; no edema. feels a bit stronger today though still quite weak Review of Systems Review of Systems: All systems reviewed & are unremarkable except as noted in Subjective Physical Exam Constitutional: well developed, + cachectic and + frail appearing; no acute distress Eyes: EOM intact bilaterally ENMT: Ears: no external ear abnormality Nose: no external nose abnormality Mouth: + dry oral mucous membranes Neck: no nuchal rigidity Respiratory: normal respiratory effort Auscultation: + diminished lung sounds Cardiovascular: Rate/Rhythm: regular rate and regular rhythm Extremities: no edema Gastrointestinal (Abdomen): Inspection/Auscultation: normal bowel sounds P ercussion/Palpation: abdomen soft; abdomen nontender Musculoskeletal: Extremities: strength 5/5 throughout and + abnormal strength (marked generalized weakness but [place]) Skin: no rashes, warm and dry Neurologic: [place], fluent speech, resting RUE tremor Psychiatric: Orientation: oriented x 3 Results & Data ([facility]) Vital Signs (Past 12 Hours) Vital Signs Temp Pulse Pulse Resp BP BP Pulse Ox 05/09/22 07:52 36.5 C 68 19 126/69 95 05/09/22 07:41 70 05/09/22 04:01 36.7 C 69 18 146/70 H 96 05/09/22 01:44 70 05/08/22 23:56 37.1 C 69 16 118/75 96 O2 Del Method O2 Flow Rate 05/09/22 07:52 Nasal Cannula 2 05/09/22 07:41 05/09/22 04:01 Nasal Cannula 2 05/09/22 01:44 05/08/22 23:56 Nasal Cannula 2 Laboratory Results 05/09/22 05:39 05/09/22 05:39
[2022-05-09] MEDS: TORSEMIDE 10 MG TAB PO SCH ×2 (09:39→17:17)
[2022-05-09] MEDS: PANTOprazole 40 MG TAB PO SCH (09:39)
[2022-05-09] MEDS: CHOLECALCIFEROL 1,000 UNITS 25 MCG TAB PO SCH (09:40)
[2022-05-09] MEDS: ADVANCED PROBIOTIC 1250 MG CAPSULE PO SCH (09:40)
[2022-05-09] MEDS: ISOSORBIDE MONO EXTENDED REL 30 MG TABCR PO SCH (09:40)
[2022-05-09] MEDS: ATORVASTATIN 40 MG TAB PO SCH (09:40)
[2022-05-09] MEDS: CYANOCOBALAMIN (B-12) 500 MCG TABLET PO SCH (09:41)
[2022-05-09] MEDS: ASCORBIC ACID 500 MG TAB PO SCH (09:41)
[2022-05-09] MEDS: METOPROLOL SUCC 50MG EXT REL TAB PO SCH (09:41)
[2022-05-09] MEDS: APIXABAN 2.5 MG TAB PO SCH ×2 (09:42→19:47)
[2022-05-09] MEDS: oxyCODONE/ACETAMINOPHEN 5mg/325mg TAB PO PRN ×2 (12:17→19:47)
--- NOTE | 2022-05-09 15:48 | Hospitalist Progress Note ---
Date of Service May 09, 2022 Assessment & Plan (1) Nonhealing surgical wound: Plan: Nonhealing surgical wound at site of ICD Pocket revision on 05/01/[address] Reeves Chest x-ray:Moderate right and small left pleural effusions with associated bibasilar opacities which could reflect atelectasis or consolidation. Radiographic follow-up is recommended. Moderate cardiomegaly. No evidence for pulmonary edema. -wound VAC discontinued on 05/06/22 -Wound culture growing Klebsiella pneumoniae Continue IV antibiotics for 2 weeks per ID and then transition to PO antibiotics per ID MRSA screen Negative IV cefazolin changed to Rocephin on 05/07/2022 -Needs life long course of PO antibiotics based on sensitivities Continue Wound care Appreciate Cardiology and plastic surgery Input Appreciate ID Input Continue wound care with daily dressing changes recommended by surgery Appreciate palliative care input Will need ultrasound-guided IV line placed for antibiotics prior to discharge NSVTs Asymptomatic Discussed with cardiology on 05/09/22: Advise no change in medications currently Continue metoprolol succinate 50 mg daily Monitor electrolytes and replace as needed Asymptomatic (2) CHB (complete heart block): (3) Biventricular ICD (implantable cardioverter-defibrillator) in place: Plan: S/P ICD (4) SHAN (acute kidney injury): (5) CKD (chronic kidney disease) stage 3, GFR 30-59 ml/min: Plan: SHAN on CKD III Likely ATN High risk for progression to ESRD Monitor renal function Avoid nephrotoxic agents as able Appreciate nephrology input Cr 2.8>2.6>2.4>2.2 (6) Chronic combined systolic and diastolic heart failure: Plan: -02/22/2022 echo: EF: 35-39%, mild to moderate AR, moderate MR, severe TR -Monitor volume status -Continue torsemide 40mg BID as recommended by nephrology (7) Acute on chronic anemia: Plan: H/H: 09/26. Hgb 9.8 on 04/29/22, 7.7 on 02/22/2022. Prior baseline appeared 9-10 range -Denies melena, hematuria, hematemesis, shortness of breath, chest pain -S/P 2 units PRBC -Monitor CBC Hb 10.1 today (8) Hyponatremia: Plan: Likely due to diuretics Monitor sodium levels Sodium 132 today (9) Chronic atrial fibrillation: Plan: Chronic atrial fibrillation anticoagulated on Eliquis Digoxin level: 0.7 Digoxin discontinued secondary to SHAN Cardiology on board Continue metoprolol On Eliquis for anticoagulation (10) CAD (coronary artery disease): (11) Ischemic cardiomyopathy: Plan: CAD s/p CABG -Continue atorvastatin, isosorbide, metoprolol succinate (12) Generalized weakness: Plan: -Deconditioning over past couple of months with recurrent hospitalizations -Continue PT/OT (13) H/O prostate cancer: Plan: S/p radiation, Lupron Follows with Dr. Pham urology Reports chronic dysuria UA not suggestive of UTI Constipation Continue bowel regimen--hold for diarrhea DVT Px -On Eliquis Code Status Full Code--- patient/Family prefers to be full code. Discussed on 05/07/22 Admission and Anticipated Discharge Date Admission Date: May 01, 2022 Subjective Patient is seen and examined at bedside Sitting in chair comfortably during my encounter No new complaints Denies any pain at ICD site today Discussed with cardiology Has been having short bursts of NSVT overnight and this morning Denies any chest pain, shortness of breath, dizziness, nausea, abdominal pain Afebrile today Review of Systems Review of Systems: All systems reviewed & are unremarkable except as noted in Subjective Physical Exam Physical Exam: Physical Exam: Vitals signs as noted above General Appearance: Thin, frail, elderly, no apparent distress Head: normocephalic, Atraumatic Eyes: normal inspection, EOMI Neck: supple, Trachea midline Respiratory/Chest: Normal breath sounds, CTA, No accessory muscle use,+ left upper chest wound dressing Cardiovascular: S1, S2, No murmur Abdomen/GI:Soft, Non tender, Bowel sounds present Extremities/Musculoskeletal:normal inspection, + left upper extremity mildly swollen Neurologic/Psych:AAOX2, grossly no focal neurological deficits Skin: normal color, warm Results & Data Results & Data ([facility]) Vital Signs (Past 12 Hours) Vital Signs Temp Pulse Pulse Resp BP BP Pulse Ox 05/09/22 15:21 70 05/09/22 15:13 37.0 C 69 17 124/61 93 05/09/22 07:30 05/09/22 10:50 36.4 C L 70 19 121/54 L 95 05/09/22 07:52 36.5 C 68 19 126/69 95 05/09/22 07:41 70 05/09/22 04:01 36.7 C 69 18 146/70 H 96 O2 Del Method O2 Flow Rate 05/09/22 15:21 05/09/22 15:13 Nasal Cannula 2 05/09/22 07:30 Nasal Cannula 2 05/09/22 10:50 Nasal Cannula 05/09/22 07:52 Nasal Cannula 2 05/09/22 07:41 05/09/22 04:01 Nasal Cannula 2 Laboratory Results Short CBC 05/09/22 Range/Units 05:39 WBC 8.01 (4.8-10.8) K/ul Hgb 10.1 L (14.0-18.0) g/dl Hct 31.2 L (42.0-52.0) % Plt Count 211 (130-400) K/uL BMP 05/09/22 05:39 Sodium 132 L Potassium 4.3 Chloride 96 L Carbon Dioxide 30 BUN 86 H Creatinine 2.29 H Glucose 106 H Calcium 8.7
[2022-05-09] MEDS: cefTRIAXone SODIUM 1,000 MG in DEXTROSE 5% AD-VAN 50 ML IV SCH (17:12)
[2022-05-09] MEDS ORDERED: EUCERIN CR 120 GM JAR EXT PRN (17:36)
[2022-05-10] MEDS: ONDANSETRON INJ 2 MG/ML 2 ML VIAL IV PRN (07:31)
[2022-05-10] MEDS ORDERED: OXYMETAZOLINE 0.05% 30 ML BTL PRN (07:37)
[2022-05-10] MEDS: APIXABAN 2.5 MG TAB PO SCH ×2 (07:43→20:18)
[2022-05-10 08:30] LABS: Hematocrit (blood only) 32.4 % (42.0-52.0); Hemoglobin 10.8 g/dl (14.0-18.0)
[2022-05-10 08:55] LABS: BUN Creatinine Ratio 39.5 (10-20); Calcium 9.1 mg/dl (8.5-10.1); Creatinine Clr Calc Pharmacy 21.2 ml/min; Est GFR (African American) 29.4 ml/min; Est GFR (Non-African American) 25.4 ml/min; Potassium 4.4 mmol/L (3.5-5.1)
[2022-05-10] MEDS: TORSEMIDE 10 MG TAB PO SCH ×2 (09:21→16:36)
[2022-05-10] MEDS: ADVANCED PROBIOTIC 1250 MG CAPSULE PO SCH (09:21)
[2022-05-10] MEDS: CHOLECALCIFEROL 1,000 UNITS 25 MCG TAB PO SCH (09:22)
[2022-05-10] MEDS: ISOSORBIDE MONO EXTENDED REL 30 MG TABCR PO SCH (09:22)
[2022-05-10] MEDS: CYANOCOBALAMIN (B-12) 500 MCG TABLET PO SCH (09:22)
[2022-05-10] MEDS: METOPROLOL SUCC 50MG EXT REL TAB PO SCH (09:22)
[2022-05-10] MEDS: ATORVASTATIN 40 MG TAB PO SCH (09:23)
[2022-05-10] MEDS: ASCORBIC ACID 500 MG TAB PO SCH (09:23)
[2022-05-10] MEDS: PANTOprazole 40 MG TAB PO SCH (09:23)
--- NOTE | 2022-05-10 11:11 | Nephrology Progress Note ---
Date of Service May 10, 2022 Assessment & Plan (1) SHAN (acute kidney injury): Plan: Patient with acute kidney injury on CKD3 likely due to ATN in setting of infecte d wound +/- cardiorenal syndrome. His chronic baseline renal function has worsened since late 2021 when it ran in the high ones for baseline creatinine (CKD 3B); since February 16 through March 2022, creatinine runs more in the low to mid twos (still CKD 3B). Patient is receiving IV antibiotics per primary team. Creatinine plateau'd 2.5-2.8 recently but now at 2.3. We will continue to monitor renal function closely. Patient is getting a daily BMP. Avoid nephrotoxins and contrast. -Continue recently increased torsemide dose as below (2) CKD (chronic kidney disease) stage 3, GFR 30-59 ml/min: Plan: Patient with CKD stage III due to hypertension and heart disease. baseline creatinine as above. -will follow peripherally -daily bmp -if pt is d/c to rehab soon, recommend weekly bmp and hospital discharge appt w/ me or my partners at [facility] in 3-4 wks after d/c (3) Chronic combined systolic and diastolic heart failure: Plan: Patient with ischemic cardiomyopathy, EF 35%. Home diuretic dose is torsemide 40 mg bid. Currently on torsemide to 40 mg daily which he has been receiving basically since admission. >continue torsemide 40 mg bid17; consider extra dose 40 mg torsemide if acutely dyspneic (4) Acute on chronic anemia: Plan: Admission hemoglobin of 7. Patient received 2 units of blood this admission. Monitor and transfuse as needed. Admission and Anticipated Discharge Date Admission Date: May 01, 2022 Subjective Seen for acute kidney injury in setting of infected wound. Complains of left arm pain. No shortness of breath. Review of Systems Review of Systems: All other systems were reviewed and negative except as noted in HPI Physical Exam Physical Exam: General exam: Appears comfortable, no acute distress HEENT: Pupils are equal and reactive to light Neck: No JVD, neck is supple trachea is midline Respiratory system: Clear breath sounds bilaterally.Wound VAC on the left upper chest Gastrointestinal: Abdomen is soft, non distended, non tender, bowel sounds are present CVS: Regular rate and rhythm. No murmurs, rubs or gallops Musculoskeletal: No joint or muscle tenderness Extremities: Non tender, no edema, peripheral pulses are present Neuro: Oriented, no tremors, no focal neurological deficits Skin: No rashes Results & Data ([facility]) Vital Signs (Past 12 Hours) Vital Signs Temp Pulse Pulse Resp BP Pulse Ox O2 Del Method 05/10/22 10:04 70 05/10/22 07:32 36.6 C 71 20 106/56 L 90 Nasal Cannula 05/10/22 03:25 36.5 C 72 16 126/65 96 Nasal Cannula O2 Flow Rate 05/10/22 10:04 05/10/22 07:32 2 05/10/22 03:25 2 Laboratory Results 05/10/22 07:26
--- NOTE | 2022-05-10 14:42 | Communication Note ---
Date of Service: May 10, 2022 Palliative medicine brief note Patient's level of alertness continues to wax and wane although when he is alert he is awake alert and oriented. His family remains conflicted about the goals of care and although he expressed a wish to be a no code, his later asked for this to to be changed back to full code. At this time, family continues to desire a very aggressive plan of care and are not able to reconcile patient's advanced illness and declining functional status as indicators that he may be transitioning from a process of living to a process of dying. Although he is not actively dying at this time, he is certainly entering a chapter that might be more about terminal disease management than acute or curative interventions. At this time, palliative medicine will sign off. The goals of care were identified and clarified as noted in previous encounters. Please not hesitate to call or page me if additional reengagement is needed through this admission. No charge submitted. Rosanne Carrera DNP Clinical Director, Palliative Medicine
--- NOTE | 2022-05-10 16:19 | Hospitalist Progress Note ---
Date of Service May 10, 2022 Assessment & Plan (1) Nonhealing surgical wound: Plan: Nonhealing surgical wound at site of ICD Pocket revision on 05/01/[address] Reeves Chest x-ray:Moderate right and small left pleural effusions with associated bibasilar opacities which could reflect atelectasis or consolidation. Radiographic follow-up is recommended. Moderate cardiomegaly. No evidence for pulmonary edema. -wound VAC discontinued on 05/06/22 -Wound culture growing Klebsiella pneumoniae Continue IV antibiotics for 2 weeks per ID and then transition to PO antibiotics per ID MRSA screen Negative IV cefazolin changed to Rocephin on 05/07/2022 -Needs life long course of PO antibiotics based on sensitivities Appreciate Cardiology and plastic surgery Input Appreciate ID Input Continue wound care with daily dressing changes recommended by surgery Appreciate palliative care input Will need ultrasound-guided IV line placed for antibiotics prior to discharge Continue wound care per surgery NSVTs Asymptomatic Discussed with cardiology on 05/09/22: Advise no change in medications currently Continue metoprolol succinate 50 mg daily Monitor electrolytes and replace as needed Asymptomatic Transient epistaxis A.m. Eliquis dose held No active bleeding Continue supplemental oxygen with humidification Afrin as needed (2) CHB (complete heart block): (3) Biventricular ICD (implantable cardioverter-defibrillator) in place: Plan: S/P ICD (4) SHAN (acute kidney injury): (5) CKD (chronic kidney disease) stage 3, GFR 30-59 ml/min: Plan: SHAN on CKD III Likely ATN High risk for progression to ESRD Monitor renal function Avoid nephrotoxic agents as able Appreciate nephrology input Cr 2.8>2.6>2.4>2.2 Needs follow-up with surgery upon discharge (6) Chronic combined systolic and diastolic heart failure: Plan: -02/22/2022 echo: EF: 35-39%, mild to moderate AR, moderate MR, severe TR -Monitor volume status -Continue torsemide 40mg BID as recommended by nephrology (7) Acute on chronic anemia: Plan: H/H: 09/26. Hgb 9.8 on 04/29/22, 7.7 on 02/22/2022. Prior baseline appeared 9-10 range -Denies melena, hematuria, hematemesis, shortness of breath, chest pain -S/P 2 units PRBC -Monitor CBC Hb 10.8 today (8) Hyponatremia: Plan: Likely due to diuretics Monitor sodium levels Sodium 131 today (9) Chronic atrial fibrillation: Plan: Chronic atrial fibrillation anticoagulated on Eliquis Digoxin level: 0.7 Digoxin discontinued secondary to SHAN Cardiology on board Continue metoprolol On Eliquis for anticoagulation (10) CAD (coronary artery disease): (11) Ischemic cardiomyopathy: Plan: CAD s/p CABG -Continue atorvastatin, isosorbide, metoprolol succinate (12) Generalized weakness: Plan: -Deconditioning over past couple of months with recurrent hospitalizations -Continue PT/OT (13) H/O prostate cancer: Plan: S/p radiation, Lupron Follows with Dr. Pham urology Reports chronic dysuria UA not suggestive of UTI Constipation Continue bowel regimen--hold for diarrhea DVT Px -On Eliquis Code Status Full Code--- patient/Family prefers to be full code. Discussed on 05/07/22 Disposition SNF when accepted Admission and Anticipated Discharge Date Admission Date: May 01, 2022 Subjective Patient is seen and examined at bedside States having transient epistaxis, nausea earlier today Denies any chest pain, shortness of breath, dizziness, nausea, abdominal pain No other complaints Review of Systems Review of Systems: All systems reviewed & are unremarkable except as noted in Subjective Physical Exam Physical Exam: Physical Exam: Vitals signs as noted above General Appearance: Thin, frail, elderly, no apparent distress Head: normocephalic, Atraumatic Eyes: normal inspection, EOMI Neck: supple, Trachea midline Respiratory/Chest: Normal breath sounds, CTA, No accessory muscle use,+ left upper chest wound dressing Cardiovascular: S1, S2, No murmur Abdomen/GI:Soft, Non tender, Bowel sounds present Extremities/Musculoskeletal:normal inspection, + left upper extremity mildly swollen Neurologic/Psych:AAOX2, grossly no focal neurological deficits Skin: normal color, warm Results & Data Results & Data ([facility]) Vital Signs (Past 12 Hours) Vital Signs Temp Pulse Pulse Resp BP Pulse Ox O2 Del Method 05/10/22 16:09 36.9 C 70 17 115/66 96 Room Air 05/10/22 08:00 86 L Room Air 05/10/22 12:02 36.5 C 69 17 130/67 95 Room Air 05/10/22 10:04 70 05/10/22 07:32 36.6 C 71 20 106/56 L 90 Nasal Cannula O2 Flow Rate 05/10/22 16:09 05/10/22 08:00 05/10/22 12:02 05/10/22 10:04 05/10/22 07:32 2 Laboratory Results Short CBC 05/10/22 Range/Units 07:26 Hgb 10.8 L (14.0-18.0) g/dl Hct 32.4 L (42.0-52.0) % BMP 05/10/22 07:26 Sodium 131 L Potassium 4.4 Chloride 94 L Carbon Dioxide 27 BUN 90 H Creatinine 2.28 H Glucose 112 H Calcium 9.1
[2022-05-10] MEDS: cefTRIAXone SODIUM 1,000 MG in DEXTROSE 5% AD-VAN 50 ML IV SCH (16:33)
[2022-05-10] MEDS: oxyCODONE/ACETAMINOPHEN 5mg/325mg TAB PO PRN (20:18)
[2022-05-11 06:35] LABS: Hematocrit (blood only) 29.7 % (42.0-52.0); Hemoglobin 9.9 g/dl (14.0-18.0); Mean Corpuscular Hemoglobin 29.4 pg (25.0-34.0); Mean Corpuscular Hgb Conc 33.3 g/dL (32.0-36.0); Mean Corpuscular Volume 88.1 fL (80.0-100.0); Mean Platelet Volume 10.4 fL (9.4-12.4); Platelet Count 239 K/uL (130-400); RDW Coefficient of Variation 15.8 % (11.5-14.5); RDW Standard Deviation 50.4 fL (36.4-46.3); Red Blood Count 3.37 M/uL (4.70-6.10); White Blood Count 6.76 K/ul (4.8-10.8)
[2022-05-11] MEDS: TORSEMIDE 10 MG TAB PO SCH ×2 (09:17→17:30)
[2022-05-11] MEDS: CHOLECALCIFEROL 1,000 UNITS 25 MCG TAB PO SCH (09:18)
[2022-05-11] MEDS: ASCORBIC ACID 500 MG TAB PO SCH (09:18)
[2022-05-11] MEDS: PANTOprazole 40 MG TAB PO SCH (09:19)
[2022-05-11] MEDS: APIXABAN 2.5 MG TAB PO SCH ×2 (09:19→20:34)
[2022-05-11] MEDS: ADVANCED PROBIOTIC 1250 MG CAPSULE PO SCH (09:19)
[2022-05-11] MEDS: ISOSORBIDE MONO EXTENDED REL 30 MG TABCR PO SCH (09:19)
[2022-05-11] MEDS: ATORVASTATIN 40 MG TAB PO SCH (09:20)
[2022-05-11] MEDS: METOPROLOL SUCC 50MG EXT REL TAB PO SCH (09:20)
[2022-05-11] MEDS: CYANOCOBALAMIN (B-12) 500 MCG TABLET PO SCH (09:20)
[2022-05-11 09:37] LABS: BUN Creatinine Ratio 43.5 (10-20); Calcium 8.7 mg/dl (8.5-10.1); Creatinine Clr Calc Pharmacy 22.4 ml/min; Est GFR (African American) 31.4 ml/min; Est GFR (Non-African American) 27.1 ml/min; Magnesium 2.4 mg/dl (1.7-2.4); Potassium 4.2 mmol/L (3.5-5.1)
[2022-05-11] MEDS ORDERED: SODIUM CHLORIDE 0.65% NA SOLN 45 ML (OCEAN) PRN (12:52)
[2022-05-11] MEDS: BENZONATATE 100 MG CAPSULE PO SCH ×2 (13:44→20:34)
--- NOTE | 2022-05-11 14:12 | XRay Report ---
XR chest 1V portable CLINICAL HISTORY: increasing cough TECHNIQUE: Single frontal radiograph of the chest was obtained. Comparison: Comparison is made to chest radiograph 05/06/2022 FINDINGS: Median sternotomy wires are unchanged. Dual lead pacemaker is seen with cardiomegaly and aortic calci fication. Bilateral lower lung predominant airspace opacities are seen. There is a moderate right and small left pleural effusion. IMPRESSION: Interval improvement in pulmonary edema, however bilateral pleural effusions and airspace opacities a re unchanged. ACT 112: Negative or not required by law. Electronically signed by: Kike Rae M.D. 05/11/2022 2:10 PM
--- NOTE | 2022-05-11 16:43 | Hospitalist Progress Note ---
Date of Service May 11, 2022 Assessment & Plan (1) Surgical site infection: Plan Nonhealing surgical wound at site of ICD Pocket revision on 05/01/[address] Reeves Chest x-ray:Moderate right and small left pleural effusions with associated bibasilar opacities which could reflect atelectasis or consolidation. Radiographic follow-up is recommended. Moderate cardiomegaly. No evidence for pulmonary edema. -wound VAC discontinued on 05/06/22 -Wound culture growing Klebsiella pneumoniae; MRSA screen negative. IV cefazolin changed to Rocephin on 05/07/2022. Continue IV antibiotics for 2 weeks per ID and then transition to PO antibiotics per ID Needs life long course of PO antibiotics based on sensitivities Appreciate ID, Cardiology , Palliative care and plastic surgery Input Continue wound care with daily dressing changes recommended by surgery Will need ultrasound-guided IV line placed for antibiotics prior to discharge Continue wound care per surgery NSVTs Asymptomatic Prior attending Discussed with cardiology on 05/09/22: Advise no change in medications currently Continue metoprolol succinate 50 mg daily Monitor electrolytes and replace as needed Asymptomatic Transient epistaxis: prn afrin, monitor closely. No active bleeding. (2) CHB (complete heart block): (3) Biventricular ICD (implantable cardioverter-defibrillator) in place: Plan: S/P ICD (4) SHAN (acute kidney injury): (5) CKD (chronic kidney disease) stage 3, GFR 30-59 ml/min: Plan: SHAN on CKD III Likely ATN High risk for progression to ESRD Monitor renal function Avoid nephrotoxic agents as able Appreciate nephrology input Cr 2.8>2.6>2.4>2.2> 2.1 Needs follow-up with nephrology upon discharge (6) Chronic combined systolic and diastolic heart failure: Plan: -02/22/2022 echo: EF: 35-39%, mild to moderate AR, moderate MR, severe TR -Monitor volume status -Continue torsemide 40mg BID as recommended by nephrology (7) Acute on chronic anemia: Plan: H/H: 09/26. Hgb 9.8 on 04/29/22, 7.7 on 02/22/2022. Prior baseline appeared 9-10 range -Denies melena, hematuria, hematemesis, shortness of breath, chest pain -S/P 2 units PRBC -Monitor CBC Hb stable lately. (8) Hyponatremia: Plan: Likely due to diuretics Monitor sodium levels Sodium stable in 130s lately. (9) Chronic atrial fibrillation: Plan: Chronic atrial fibrillation anticoagulated on Eliquis Digoxin level: 0.7 Digoxin discontinued secondary to SHAN Cardiology on board Continue metoprolol On Eliquis for anticoagulation (10) CAD (coronary artery disease): (11) Ischemic cardiomyopathy: Plan: CAD s/p CABG -Continue atorvastatin, isosorbide, metoprolol succinate (12) Generalized weakness: Plan: -Deconditioning over past couple of months with recurrent hospitalizations -Continue PT/OT (13) H/O prostate cancer: Plan: S/p radiation, Lupron Follows with Dr. Pham urology Reports chronic dysuria UA not suggestive of UTI Constipation: Continue bowel regimen--hold for diarrhea DVT Px: -On Eliquis Code Status: Full Code--- patient/Family prefers to be full code. Discussed by prior attending on 05/07/22 Disposition: SNF when accepted, iv atb, usg iv line. 3/4 Pt's [place] given a phone call for general update on the patient and left voicemail to call us back and ask for Dr. Hwang. Admission and Anticipated Discharge Date Admission Date: May 01, 2022 Subjective Patient seen and examined at bedside as a follow-up for nonhealing surgical wound at site of ICD placement. Patient was lying in bed, on 1 L oxygen via nasal cannula, NAD, reports no new acute event overnight, reports overall poor appetite but has been able to eat, reports some cough which seems to be at his baseline and also reports pain at surgical site under control. Patient reports moving soft bowel. Patient denies any palpitation or headache or dizziness or abdominal pain or nausea. Physical Exam Physical Exam: GENERAL: Alert and oriented x3. NAD, on 1L NC O2. Appears ill/weak/frial. HEENT: No pallor, no icterus. Pupils equal, round and reactive to light. Oral mucosa moist. NECK: No JVD, no neck masses. Lt chest w/ c/d/i dressing. HEART: S1 and S2 heard. Regular rate and rhythm. No murmur, no gallop. RESPIRATORY SYSTEM: Normal AP diameter. No accessory muscle use. No wheezing, no crackles. ABDOMEN: Soft, bowel sounds present, nontender, no distention. CENTRAL NERVOUS SYSTEM: No facial droop. Speech is clear. Obeys simple comman ds. Moves extremities. EXTREMITIES: No edema, no erythema seen. Results & Data Results & Data ([facility]) Vital Signs (Past 12 Hours) Vital Signs Temp Pulse Pulse Resp BP Pulse Ox O2 Del Method 05/11/22 15:24 70 05/11/22 15:20 36.7 C 68 16 123/63 93 Nasal Cannula 05/11/22 07:45 Nasal Cannula 05/11/22 11:31 36.4 C L 71 16 128/70 93 Nasal Cannula 05/11/22 07:30 36.4 C L 69 16 133/67 96 Nasal Cannula 05/11/22 07:28 72 O2 Flow Rate 05/11/22 15:24 05/11/22 15:20 2 05/11/22 07:45 1 05/11/22 11:31 2 05/11/22 07:30 2 05/11/22 07:28
[2022-05-11] MEDS: cefTRIAXone SODIUM 1,000 MG in DEXTROSE 5% AD-VAN 50 ML IV SCH (17:31)
[2022-05-11] MEDS: oxyCODONE/ACETAMINOPHEN 5mg/325mg TAB PO PRN (20:34)
[2022-05-12 05:58] LABS: Hematocrit (blood only) 30.1 % (42.0-52.0); Mean Corpuscular Hemoglobin 29.2 pg (25.0-34.0); Mean Corpuscular Hgb Conc 33.2 g/dL (32.0-36.0); Mean Platelet Volume 10.1 fL (9.4-12.4); Platelet Count 245 K/uL (130-400); RDW Coefficient of Variation 15.7 % (11.5-14.5); Red Blood Count 3.42 M/uL (4.70-6.10); White Blood Count 6.58 K/ul (4.8-10.8)
[2022-05-12 06:24] LABS: BUN Creatinine Ratio 48.4 (10-20); Calcium 8.8 mg/dl (8.5-10.1); Creatinine Clr Calc Pharmacy 23.6 ml/min; Est GFR (Non-African American) 27.6 ml/min; Potassium 4.2 mmol/L (3.5-5.1)
[2022-05-12] MEDS: CYANOCOBALAMIN (B-12) 500 MCG TABLET PO SCH (09:41)
[2022-05-12] MEDS: ADVANCED PROBIOTIC 1250 MG CAPSULE PO SCH (09:41)
[2022-05-12] MEDS: ATORVASTATIN 40 MG TAB PO SCH (09:41)
[2022-05-12] MEDS: METOPROLOL SUCC 50MG EXT REL TAB PO SCH (09:41)
[2022-05-12] MEDS: TORSEMIDE 10 MG TAB PO SCH ×2 (09:42→17:07)
[2022-05-12] MEDS: ASCORBIC ACID 500 MG TAB PO SCH (09:42)
[2022-05-12] MEDS: CHOLECALCIFEROL 1,000 UNITS 25 MCG TAB PO SCH (09:43)
[2022-05-12] MEDS: ISOSORBIDE MONO EXTENDED REL 30 MG TABCR PO SCH (09:43)
[2022-05-12] MEDS: APIXABAN 2.5 MG TAB PO SCH ×2 (09:43→20:11)
[2022-05-12] MEDS: BENZONATATE 100 MG CAPSULE PO SCH (09:44)
[2022-05-12] MEDS: PANTOprazole 40 MG TAB PO SCH (09:44)
--- NOTE | 2022-05-12 13:01 | Hospitalist Progress Note ---
Date of Service May 12, 2022 Assessment & Plan (1) Surgical site infection: Plan per Dr. Hwang's notes with addendum: Nonhealing surgical wound at site of ICD Pocket revision on 05/01/[address] Reeves Chest x-ray:Moderate right and small left pleural effusions with associated bibasilar opacities which could reflect atelectasis or consolidation. Radiographic follow-up is recommended. Moderate cardiomegaly. No evidence for pulmonary edema. -wound VAC discontinued on 05/06/22 -Wound culture growing Klebsiella pneumoniae; MRSA screen negative. IV cefazolin changed to Rocephin on 05/07/2022. Continue IV antibiotics for 2 weeks per ID and then transition to PO antibiotics per ID Needs life long course of PO antibiotics based on sensitivities Appreciate ID, Cardiology , Palliative care and plastic surgery Input Continue wound care with daily dressing changes recommended by surgery Will need ultrasound-guided IV line placed for antibiotics prior to discharge Continue wound care per surgery / feeling tired, weak, poor appetite likely multifactorial: Underlying infection, surgeries, prolonged hospitalization, deconditioning no new source of infection at this point continue Boost, PT/OT d/c Itzel schwartz- may be contributing to weakness NSVTs Asymptomatic Prior attending Discussed with cardiology on 05/09/22: Advise no change in medications currently Continue metoprolol succinate 50 mg daily Monitor electrolytes and replace as needed Asymptomatic Transient epistaxis: prn afrin, monitor closely. No active bleeding. (2) CHB (complete heart block): (3) Biventricular ICD (implantable cardioverter-defibrillator) in place: Plan: S/P ICD (4) SHAN (acute kidney injury): (5) CKD (chronic kidney disease) stage 3, GFR 30-59 ml/min: Plan: SHAN on CKD III Likely ATN High risk for progression to ESRD Monitor renal function Avoid nephrotoxic agents as able Appreciate nephrology input Cr 2.8>2.6>2.4>2.2> 2.1 Needs follow-up with nephrology upon discharge 05/12 crea stable (6) Chronic combined systolic and diastolic heart failure: Plan: -02/22/2022 echo: EF: 35-39%, mild to moderate AR, moderate MR, severe TR -Monitor volume status -Continue torsemide 40mg BID as recommended by nephrology 3 euvolemic (7) Acute on chronic anemia: Plan: H/H: 09/26. Hgb 9.8 on 04/29/22, 7.7 on 02/22/2022. Prior baseline appeared 9-10 range -Denies melena, hematuria, hematemesis, shortness of breath, chest pain -S/P 2 units PRBC -Monitor CBC Hb stable lately. 3/5 Hg stable (8) Hyponatremia: Plan: Likely due to diuretics Monitor sodium levels Sodium stable in 130s lately. (9) Chronic atrial fibrillation: Plan: Chronic atrial fibrillation anticoagulated on Eliquis Digoxin level: 0.7 Digoxin discontinued secondary to SHAN Cardiology on board Continue metoprolol On Eliquis for anticoagulation (10) CAD (coronary artery disease): (11) Ischemic cardiomyopathy: Plan: CAD s/p CABG -Continue atorvastatin, isosorbide, metoprolol succinate (12) Generalized weakness: Plan: -Deconditioning over past couple of months with recurrent hospitalizations -Continue PT/OT (13) H/O prostate cancer: Plan: S/p radiation, Lupron Follows with Dr. Pham urology Reports chronic dysuria UA not suggestive of UTI Constipation: Continue bowel regimen--hold for diarrhea DVT Px: -On Eliquis Code Status: Full Code--- patient/Family prefers to be full code. Discussed by prior attending on 05/07/22 Disposition: SNF when accepted, iv atb, usg iv line. Admission and Anticipated Discharge Date Admission Date: May 01, 2022 Subjective ff up for pacemaker site infection, etc seen sitting up at the edge of the bed states he feels off- feeling weak, poor appetite no chest pain, dyspnea, palpitations, dizziness no pain over the PM site denies headache, cough, abdominal pain, nausea/vomiting no fever/chills no other symptoms Review of Systems Review of Systems: all noted and negative except for above Physical Exam Physical Exam: General- oriented x 3, not in distress, speaks in sentences with no effort or accessory muscle use Eyes- anicteric Neck- no JVD Lungs- clear breath sounds bilaterally, no rales/wheezes Heart- normal rate, regular rhythm; no murmurs pacemaker site- dressing in place, small amount of blood noted no surrounding erythema, hematoma, edema Abdomen- normal bowel sounds, nondistended, soft, nontender Extremities- no pretibial edema, no calf tenderness Neuro- alert, oriented x 3; no gross focal neurologic deficits Skin- warm & dry Results & Data Results & Data ([facility]) Vital Signs (Past 12 Hours) Vital Signs Temp Pulse Pulse Resp BP Pulse Ox O2 Del Method 05/12/22 12:00 36.8 C 74 18 100/64 Room Air 05/12/22 08:00 36.5 C 79 18 119/69 Nasal Cannula 05/12/22 07:05 70 05/12/22 03:00 36.3 C L 69 18 121/66 90 Nasal Cannula O2 Flow Rate 05/12/22 12:00 05/12/22 08:00 2 05/12/22 07:05 05/12/22 03:00 2 all noted and reviewed including below
[2022-05-12] MEDS: oxyCODONE/ACETAMINOPHEN 5mg/325mg TAB PO PRN ×2 (14:05→20:11)
[2022-05-12] MEDS: cefTRIAXone SODIUM 1,000 MG in DEXTROSE 5% AD-VAN 50 ML IV SCH (17:09)
[2022-05-13] MEDS: APIXABAN 2.5 MG TAB PO SCH (09:15)
[2022-05-13] MEDS: ASCORBIC ACID 500 MG TAB PO SCH (09:15)
[2022-05-13] MEDS: CHOLECALCIFEROL 1,000 UNITS 25 MCG TAB PO SCH (09:16)
[2022-05-13] MEDS: ISOSORBIDE MONO EXTENDED REL 30 MG TABCR PO SCH (09:16)
[2022-05-13] MEDS: METOPROLOL SUCC 50MG EXT REL TAB PO SCH (09:16)
[2022-05-13] MEDS: ATORVASTATIN 40 MG TAB PO SCH (09:16)
[2022-05-13] MEDS: ADVANCED PROBIOTIC 1250 MG CAPSULE PO SCH (09:16)
[2022-05-13] MEDS: CYANOCOBALAMIN (B-12) 500 MCG TABLET PO SCH (09:16)
[2022-05-13] MEDS: TORSEMIDE 10 MG TAB PO SCH ×2 (09:17→16:57)
[2022-05-13] MEDS: PANTOprazole 40 MG TAB PO SCH (09:17)
[2022-05-13 09:32] LABS: BUN Creatinine Ratio 49.2 (10-20); Calcium 9.2 mg/dl (8.5-10.1); Creatinine Clr Calc Pharmacy 25.9 ml/min; Est GFR (African American) 36.5 ml/min; Est GFR (Non-African American) 31.5 ml/min; Potassium 4.4 mmol/L (3.5-5.1)
--- NOTE | 2022-05-13 10:02 | CT Scan Report ---
CT chest diagnostic wo con CT DOSE: 246.79 mGy.cm CLINICAL HISTORY: 86 years-old Male with pleural effusion vs. pneumonia. Acute shortness of breath TECHNIQUE: Multiaxial CT images of the chest were performed without contrast. A dose lowering techni que was utilized adhering to the principles of ALARA. COMPARISON: Chest radiograph 05/11/[address] 11/19/2016 FINDINGS: Prominent calcified plaque of the right carotid bulb is partially imaged. Heterogeneity of the thyroid. Mildly enlarged 1.1 cm AP window lymph node with 1.1 cm subcarinal lymph node. Marked ca rdiomegaly. Prior median sternotomy with left subclavian pacer/AICD and CABG. Atherosclerosis of the aorta without aneurysm. Dilated main pulmonary artery suggestive of pulmonary arterial hypertension. Moderate layering pleural effusions with dependent bibasilar consolidation. Intralobular septal thick ening with intermixed groundglass densities. Mild tracheobronchial secretions. Marginal nodularity of the liver. Unremarkable soft tissues. Degenerative changes of the shoulders an d spine. Chronic T12 compression fracture. IMPRESSION: 1. Marked cardiomegaly with mild pulmonary edema. 2. Moderate pleural effusions with dependent bibasilar consolidation suggestive of probable compressi ve atelectasis. Superimposed pneumonia could appear similarly however considered less likely. 3. Mild mediastinal lymphadenopathy, likely reactive. 4. Findings suggestive of cirrhosis. ACT 112: Negative or not required by law. Electronically signed by: Izaiah Wong M.D. 05/13/2022 10:00 AM
[2022-05-13] MEDS: oxyCODONE/ACETAMINOPHEN 5mg/325mg TAB PO PRN (11:08)
[2022-05-13] MEDS ORDERED: metOLazone 5 MG TABLET PO ONE (11:11)
--- NOTE | 2022-05-13 11:11 | Nephrology Progress Note ---
Date of Service May 13, 2022 Assessment & Plan (1) SHAN (acute kidney injury): Plan: Patient with acute kidney injury on CKD3 likely due to ATN in setting of infecte d wound +/- cardiorenal syndrome. His chronic baseline renal function has worsened since late 2021 when it ran in the high ones for baseline creatinine (CKD 3B); since February 16 through March 2022, creatinine runs more in the low to mid twos (still CKD 3B). Patient is receiving IV antibiotics per primary team. Creatinine plateau'd 2.5-2.8 recently but now at 1.9. We will continue to monitor renal function closely. Patient is getting a daily BMP. Avoid nephrotoxins and contrast. -Continue recently increased torsemide dose as below (2) CKD (chronic kidney disease) stage 3, GFR 30-59 ml/min: Plan: Patient with CKD stage III due to hypertension and heart disease. baseline creatinine as above. -will follow peripherally -daily bmp -if pt is d/c to rehab soon, recommend weekly bmp and hospital discharge appt w/ me or my partners at [facility] in 3-4 wks after d/c (3) Chronic combined systolic and diastolic heart failure: Plan: Patient with ischemic cardiomyopathy, EF 35%. Home diuretic dose is torsemide 40 mg bid. Currently on torsemide to 40 mg daily which he has been receiving basically since admission. >continue torsemide 40 mg bid17; -add metolazone 5mg once today (4) Acute on chronic anemia: Plan: Admission hemoglobin of 7. Patient received 2 units of blood this admission. Monitor and transfuse as needed. Admission and Anticipated Discharge Date Admission Date: May 01, 2022 Subjective Seen for CKD. Main complaint is left arm pain. No shortness of breath but remains on oxygen nasal cannula. CT chest showing cardiomegaly and pulmonary edema with moderate pleural effusions Review of Systems Review of Systems: All other systems were reviewed and negative except as noted in HPI Physical Exam Physical Exam: General exam: Appears comfortable, no acute distress HEENT: Pupils are equal and reactive to light Neck: No JVD, neck is supple trachea is midline Respiratory system: Clear breath sounds bilaterally.Wound VAC on the left upper chest Gastrointestinal: Abdomen is soft, non distended, non tender, bowel sounds are present CVS: Regular rate and rhythm. No murmurs, rubs or gallops Musculoskeletal: No joint or muscle tenderness Extremities: Non tender, no edema, peripheral pulses are present Neuro: Oriented, no tremors, no focal neurological deficits Skin: No rashes Results & Data ([facility]) Vital Signs (Past 12 Hours) Vital Signs Temp Pulse Resp BP Pulse Ox O2 Del Method O2 Flow Rate 05/13/22 08:00 Nasal Cannula 2 05/13/22 07:09 36.4 C L 70 18 155/71 H 96 Nasal Cannula 2 05/13/22 03:00 36.4 C L 68 16 135/72 96 Nasal Cannula 2 05/12/22 23:40 36.5 C 70 18 136/65 96 Nasal Cannula 2 Laboratory Results 05/13/22 08:33
--- NOTE | 2022-05-13 14:51 | Pulmonary Consultation ---
Date of Consultation May 13, 2022 Assessment & Plan (1) Bilateral pleural effusion: (2) Ischemic cardiomyopathy: (3) Dyspnea: (4) Hypoxia: Plan He has bilateral effusions secondary to CKD stage III and systolic heart failure. I went over the risks and benefits of a thoracentesis with the patient in detail. The patient is willing to proceed with a thoracentesis in an attempt to alleviate his symptoms. He is currently on Eliquis. We will hold the evening dose and the morning dose of Eliquis and proceed with thoracentesis tomorrow. We will order morning INR, PTT and CBC. Patient and are in agreement with the plan. Discussed with patient's bedside nurse, Jany in person and hospitalist, Dr. Jeffrey, over the phone. History of Present Illness Reason for Consultation: Bilateral pleural effusions Attending Physician: Nimesh Jeffrey MD History of Present Illness 86-year-old male with history of cardiomyopathy, atrial fibrillation on Eliquis, CAD who initially presented due to a nonhealing surgical wound at the site of his ICD. Patient also with a diagnosis of SHAN this admission and is followed by [facility] nephrology. He is on a dose of torsemide 40 mg twice daily. Patient had a CT of his chest today which revealed moderate-sized bilateral dependent pleural effusions. I looked at his CT scans dating back to 2015 which revealed a small to moderate right pleural effusion and a small left pleural effusion. No significant infiltrates consistent with pneumonia were seen. Patient had an oxygen requirement this morning and is currently on low-flow oxygen. He is dyspneic with minimal activity such as sitting up in bed. His is present at bedside and notes that he has gained weight since February. She notes that he will be discharged to a custodial facility when ready. He describes that he previously underwent a thoracentesis in [place], but is uncertain 1. Allergies Allergy/AdvReac Type Severity Reaction Status Date / Time bee venom protein (honey bee) Allergy Unknown WASPS Verified 05/01/22 07:49 lisinopril Allergy Unknown COUGH Verified 05/01/22 07:49 mirtazapine Allergy Unknown FLUSING Verified 05/01/22 07:49 FEELING streptokinase Allergy Unknown WAS TOLD Verified 05/01/22 07:49 NOT TO TAKE POISON PO Allergy Unknown BLISTERS Uncoded 02/15/17 13:06 Home Medications Medication Instructions Recorded Confirmed Type alprazolam 0.5 mg tablet 0.5 mg PO HS PRN Insomnia 05/03/22 05/03/22 History amoxicillin 500 mg-potassium 1 tab PO BID 05/03/22 05/03/22 History clavulanate 125 mg tablet apixaban 2.5 mg tablet (Eliquis) 2.5 mg PO BID 05/03/22 05/03/22 History ascorbic acid (vitamin C) 500 mg 500 mg PO DAILY 05/03/22 05/03/22 History tablet (Vitamin C) atorvastatin 40 mg tablet 40 mg PO DAILY 05/03/22 05/03/22 History cholecalciferol (vitamin D3) 50 2,000 unit PO DAILY 05/03/22 05/03/22 History mcg (2,000 unit) capsule (Vitamin D3) cyanocobalamin (vitamin B-12) 1,000 mcg PO DAILY 05/03/22 05/03/22 History 1,000 mcg tablet digoxin 125 mcg (0.125 mg) tablet 62.5 mcg PO UD 05/03/22 05/03/22 History isosorbide mononitrate 30 mg 30 mg PO DAILY 05/03/22 05/03/22 History tablet,extended release 24 hr metoprolol succinate 50 mg 50 mg PO DAILY 05/03/22 05/03/22 History tablet,extended release 24 hr omeprazole 20 mg capsule,delayed 20 mg PO DAILY 05/03/22 05/03/22 History release torsemide 20 mg tablet 40 mg PO BID 05/03/22 05/03/22 History Patient History Medical History (Updated 05/13/22 @ 15:41 by Ahmet Hopkins MD) Acute kidney injury superimposed on CKD Bilateral pleural effusion Biventricular ICD (implantable cardioverter-defibrillator) in place CAD (coronary artery disease) CHB (complete heart block) Chronic atrial fibrillation Chronic combined systolic and diastolic heart failure CKD (chronic kidney disease) stage 3, GFR 30-59 ml/min Counseling regarding advanced directives and goals of care Dyspnea GERD (gastroesophageal reflux disease) H/O prostate cancer Hepatitis C Hypoxia Ischemic cardiomyopathy Liver cirrhosis Palliative care by specialist Surgical History (Updated 05/01/22 @ 07:57 by Kayli Reeves DO) Hx of CABG Social History Smoking Status: Former smoker Second Hand Exposure: No; Do You Dip or Chew Tobacco: No; Tobacco Cessation Education Requested by Patient: No Hx Alcohol Use: No Hx Substance Use: No Preferred Language: [place] Communication Ability: Effective Panel Machine Tender Required: No Current Living Situation: Spouse Feels Safe at Home: Yes Assistive Devices: Cane and Walker Review of Systems Review of Systems: All systems reviewed & are unremarkable except as noted in HPI & below Physical Exam Physical Exam: Constitutional: Patient appears to be of their stated age. Patient is in no apparent distress. Patient is well-developed. Eyes: Pupils are equal round and reactive to light. Conjunctivae are normal. Anicteric sclera. Ears nose, mouth and throat: Deferred. Neck: Trachea is midline. Visual inspection is normal. Respiratory: Bilateral diminishment at the bases. No tachypnea. Cardiovascular: Regular rate and rhythm. No murmurs. No edema. Gastrointestinal: Normal bowel sounds, soft, nontender and nondistended. No hepatosplenomegaly noted. Musculoskeletal: No cyanosis. Patient is able to move all extremities. Diffusely weak. Skin: No rashes, warm dry and intact. Neurologic: No obvious focal neurological deficits seen. Psychiatric: Alert and oriented x3 with a euthymic affect. Results & Data Results & Data ([facility]) Vital Signs (Past 12 Hours) Vital Signs Temp Pulse Resp BP Pulse Ox O2 Del Method O2 Flow Rate 05/13/22 11:09 36.4 C L 71 20 141/69 H 92 Nasal Cannula 2 05/13/22 08:00 Nasal Cannula 2 05/13/22 07:09 36.4 C L 70 18 155/71 H 96 Nasal Cannula 2 05/13/22 03:00 36.4 C L 68 16 135/72 96 Nasal Cannula 2 PG Care Time/CCT Total # of Minutes Spent Total Time Spent with Patient: Total time spent is greater than 50% in coordination of care (as documented) at patient's floor/unit and/or counseling patient: Coding Level of Care Code 57396 IN/OBS CONSULT LVL 4,60M Diagnoses Bilateral pleural effusion J90 Ischemic cardiomyopathy I25.5 Dyspnea R06.00 Hypoxia R09.02
--- NOTE | 2022-05-13 16:20 | Hospitalist Progress Note ---
Date of Service May 13, 2022 Assessment & Plan (1) Surgical site infection: Plan per Dr. Hwang's notes with addendum: Nonhealing surgical wound at site of ICD Pocket revision on 05/01/[address] Reeves Chest x-ray:Moderate right and small left pleural effusions with associated bibasilar opacities which could reflect atelectasis or consolidation. Radiographic follow-up is recommended. Moderate cardiomegaly. No evidence for pulmonary edema. -wound VAC discontinued on 05/06/22 -Wound culture growing Klebsiella pneumoniae; MRSA screen negative. IV cefazolin changed to Rocephin on 05/07/2022. Continue IV antibiotics for 2 weeks per ID and then transition to PO antibiotics per ID Needs life long course of PO antibiotics based on sensitivities Appreciate ID, Cardiology , Palliative care and plastic surgery Input Continue wound care with daily dressing changes recommended by surgery Will need ultrasound-guided IV line placed for antibiotics prior to discharge Continue wound care per surgery 05/12 feeling tired, weak, poor appetite likely multifactorial: Underlying infection, surgeries, prolonged hospitalization, deconditioning no new source of infection at this point continue Boost, PT/OT d/c Itzel schwartz- may be contributing to weakness 3/ Positive moderate pleural effusion on CT chest Pleural effusion appears to be persistent based on serial x-rays taken during this admission Remains on 2 L of oxygen which patient does not use at home Discussed with picking machine operator helper, additional metolazone ordered today, in addition to patient's torsemide twice daily, recommend evaluation for thoracentesis Pulmonology service consulted, discussed with Dr. Hopkins He recommends thoracentesis which will be performed tomorrow Hold Anuj ALVARADOVTs Asymptomatic Prior attending Discussed with cardiology on 05/09/22: Advise no change in medications currently Continue metoprolol succinate 50 mg daily Monitor electrolytes and replace as needed Asymptomatic Transient epistaxis: prn afrin, monitor closely. No active bleeding. (2) CHB (complete heart block): (3) Biventricular ICD (implantable cardioverter-defibrillator) in place: Plan: S/P ICD (4) SHAN (acute kidney injury): (5) CKD (chronic kidney disease) stage 3, GFR 30-59 ml/min: Plan: SHAN on CKD III Likely ATN High risk for progression to ESRD Monitor renal function Avoid nephrotoxic agents as able Appreciate nephrology input Cr 2.8>2.6>2.4>2.2> 2.1 Needs follow-up with nephrology upon discharge 05/12 crea stable 05/13 Creatinine 1.9 Management per #1 (6) Chronic combined systolic and diastolic heart failure: Plan: -02/22/2022 echo: EF: 35-39%, mild to moderate AR, moderate MR, severe TR -Monitor volume status -Continue torsemide 40mg BID as recommended by nephrology / Management of diuretics and pleural effusion per #1 (7) Acute on chronic anemia: Plan: H/H: 09/26. Hgb 9.8 on 04/29/22, 7.7 on 02/22/2022. Prior baseline appeared 9-10 range -Denies melena, hematuria, hematemesis, shortness of breath, chest pain -S/P 2 units PRBC -Monitor CBC Hb stable lately. 3/5 Hg stable (8) Hyponatremia: Plan: Likely due to diuretics Monitor sodium levels Sodium stable in 130s lately. (9) Chronic atrial fibrillation: Plan: Chronic atrial fibrillation anticoagulated on Eliquis Digoxin level: 0.7 Digoxin discontinued secondary to SHAN Cardiology on board Continue metoprolol On Eliquis for anticoagulation (10) CAD (coronary artery disease): (11) Ischemic cardiomyopathy: Plan: CAD s/p CABG -Continue atorvastatin, isosorbide, metoprolol succinate (12) Generalized weakness: Plan: -Deconditioning over past couple of months with recurrent hospitalizations -Continue PT/OT (13) H/O prostate cancer: Plan: S/p radiation, Lupron Follows with Dr. Pham urology Reports chronic dysuria UA not suggestive of UTI Constipation: Continue bowel regimen--hold for diarrhea DVT Px: -On Eliquis Code Status: Full Code--- patient/Family prefers to be full code. Discussed by prior attending on 05/07/22 Disposition: SNF when accepted, iv atb, usg iv line. Admission and Anticipated Discharge Date Admission Date: May 01, 2022 Subjective Follow-up for pacemaker infection, etc. Seen resting in bed, comfortable, not in distress, on 2 L of oxygen via nasal cannula States he feels about the same as yesterday Denies chest pain, active shortness of breath, dizziness, nausea vomiting Appetite still poor No other new symptoms Review of Systems Review of Systems: all noted and negative except for above Physical Exam Physical Exam: General- oriented x 3, not in distress, speaks in sentences with no effort or accessory muscle use Eyes- anicteric Neck- no JVD Lungs-decreased breath sounds right mid to base, clear on the left No wheezing Heart- normal rate, regular rhythm; no murmurs Pacemaker site with dressing in place Abdomen- normal bowel sounds, nondistended, soft, nontender Extremities- no pretibial edema, no calf tenderness Neuro- alert, oriented x 3; no gross focal neurologic deficits Skin- warm & dry Results & Data Results & Data ([facility]) Vital Signs (Past 12 Hours) Vital Signs Temp Pulse Resp BP Pulse Ox O2 Del Method O2 Flow Rate 05/13/22 11:09 36.4 C L 71 20 141/69 H 92 Nasal Cannula 2 05/13/22 08:00 Nasal Cannula 2 05/13/22 07:09 36.4 C L 70 18 155/71 H 96 Nasal Cannula 2 all noted and reviewed including below
[2022-05-13] MEDS: cefTRIAXone SODIUM 1,000 MG in DEXTROSE 5% AD-VAN 50 ML IV SCH (16:57)
[2022-05-13] MEDS: ALPRAZolam 0.5 MG TABLET PO PRN (22:48)
[2022-05-14 06:45] LABS: Basophils # (auto) 0.05 K/uL (0-0.2); Basophils % (auto) 0.7 %; Eosinophils # (auto) 0.28 K/uL (0-0.50); Eosinophils % (auto) 4.2 %; Hematocrit (blood only) 29.4 % (42.0-52.0); Hemoglobin 9.8 g/dl (14.0-18.0); Immature Granulocytes # (auto) 0.03 K/uL (0.01-0.20); Immature Granulocytes % (auto) 0.4 %; Lymphocytes # (auto) 0.21 K/uL (1.2-3.4); Lymphocytes % (auto) 3.1 %; Mean Corpuscular Hemoglobin 29.1 pg (25.0-34.0); Mean Corpuscular Hgb Conc 33.3 g/dL (32.0-36.0); Mean Corpuscular Volume 87.2 fL (80.0-100.0); Mean Platelet Volume 10.2 fL (9.4-12.4); Monocytes # (auto) 0.73 K/uL (0.11-0.59); Monocytes % (auto) 10.9 %; Neutrophils # (auto) 5.39 K/uL (1.40-6.50); Neutrophils % (auto) 80.7 %; Platelet Count 273 K/uL (130-400); RDW Coefficient of Variation 15.6 % (11.5-14.5); RDW Standard Deviation 48.7 fL (36.4-46.3); Red Blood Count 3.37 M/uL (4.70-6.10); White Blood Count 6.69 K/ul (4.8-10.8)
[2022-05-14 07:05] LABS: BUN Creatinine Ratio 48.7 (10-20); Creatinine Clr Calc Pharmacy 25.1 ml/min; Est GFR (African American) 35.6 ml/min; Est GFR (Non-African American) 30.7 ml/min; Potassium 3.5 mmol/L (3.5-5.1)
[2022-05-14 07:23] LABS: INR 1.1 (0.9-1.1); Partial Thromboplastin Ratio 1.2; Partial Thromboplastin Time 32.2 Seconds (21.0-31.0); Prothrombin Time 11.4 Seconds (9.0-12.0)
[2022-05-14] MEDS: TORSEMIDE 10 MG TAB PO SCH ×2 (09:24→15:55)
[2022-05-14] MEDS: METOPROLOL SUCC 50MG EXT REL TAB PO SCH (09:24)
[2022-05-14] MEDS: PANTOprazole 40 MG TAB PO SCH (09:24)
[2022-05-14] MEDS: ADVANCED PROBIOTIC 1250 MG CAPSULE PO SCH (09:24)
[2022-05-14] MEDS: CHOLECALCIFEROL 1,000 UNITS 25 MCG TAB PO SCH (09:25)
[2022-05-14] MEDS: ISOSORBIDE MONO EXTENDED REL 30 MG TABCR PO SCH (09:25)
[2022-05-14] MEDS: CYANOCOBALAMIN (B-12) 500 MCG TABLET PO SCH (09:25)
[2022-05-14] MEDS: ATORVASTATIN 40 MG TAB PO SCH (09:25)
[2022-05-14] MEDS: ASCORBIC ACID 500 MG TAB PO SCH (09:25)
--- NOTE | 2022-05-14 10:42 | Nephrology Progress Note ---
Date of Service May 14, 2022 Assessment & Plan (1) SHAN (acute kidney injury): Plan: Patient with acute kidney injury on CKD3 likely due to ATN in setting of infecte d wound +/- cardiorenal syndrome. His chronic baseline renal function has worsened since late 2021 when it ran in the high ones for baseline creatinine (CKD 3B); since February 16 through March 2022, creatinine runs more in the low to mid twos (still CKD 3B). Patient is receiving IV antibiotics per primary team. Creatinine plateau'd 2.5-2.8 recently but now stable at 1.9. We will continue to monitor renal function closely. Patient is getting a daily BMP. Avoid nephrotoxins and contrast. -Continue recently increased torsemide dose as below (2) Chronic combined systolic and diastolic heart failure: Plan: Patient with ischemic cardiomyopathy, EF 35%. Home diuretic dose is torsemide 40 mg bid. Currently on torsemide to 40 mg daily which he has been receiving basically since admission. >continue torsemide 40 mg bid17; -No need for metolazone today since patient is getting thoracentesis. (3) Acute on chronic anemia: Plan: Admission hemoglobin of 7. Patient received 2 units of blood this admission. Monitor and transfuse as needed. Admission and Anticipated Discharge Date Admission Date: May 01, 2022 Subjective Seen for acute kidney injury on CKD and CHF. Patient remains on oxygen. Chest x-ray showed bilateral pleural effusions and is being planned for thoracentesis. He had a dose of metolazone yesterday and reports urinary incontinence Review of Systems Review of Systems: All other systems were reviewed and negative except as noted in HPI Physical Exam Physical Exam: General exam: Appears comfortable, no acute distress HEENT: Pupils are equal and reactive to light Neck: No JVD, neck is supple trachea is midline Respiratory system: Clear breath sounds bilaterally.Wound VAC on the left upper chest Gastrointestinal: Abdomen is soft, non distended, non tender, bowel sounds are present CVS: Regular rate and rhythm. No murmurs, rubs or gallops Musculoskeletal: No joint or muscle tenderness Extremities: Non tender, no edema, peripheral pulses are present Neuro: Oriented, no tremors, no focal neurological deficits Skin: No rashes Results & Data ([facility]) Vital Signs (Past 12 Hours) Vital Signs Temp Pulse Pulse Resp BP Pulse Ox O2 Del Method 05/14/22 10:21 70 05/14/22 08:00 36.9 C 98 H 20 136/74 Room Air 05/14/22 07:50 Nasal Cannula 05/14/22 03:08 36.5 C 70 18 124/66 95 Nasal Cannula 05/13/22 22:45 36.6 C 70 18 144/72 H 97 Nasal Cannula O2 Flow Rate 05/14/22 10:21 05/14/22 08:00 05/14/22 07:50 4 05/14/22 03:08 2 05/13/22 22:45 2 Laboratory Results 05/14/22 05:32 05/14/22 05:32 WBC 6.69 RBC 3.37 L MCV 87.2 MCH 29.1 MCHC 33.3 RDW Std Deviation 48.7 H RDW Coeff of Joycelyn 15.6 H Plt Count 273 MPV 10.2
--- NOTE | 2022-05-14 11:23 | Procedure Note ---
Procedure Note Date of Service May 14, 2022 Supervising Physician Co-Signing Physician Notes Procedure: Diagnostic and therapeutic ultrasound-guided catheter thoracentesis of the right Cooker Pie Filling: Dr. Ahmet Hopkins Indication: Pleural effusion Consent: Signed by patient and verified with timeout prior to procedure Anesthesia: 8 mL's of 1% lidocaine without epinephrine given locally Procedure: Consent was verified and timeout performed. Appropriate imaging studies were reviewed prior to the procedure. Patient was placed in a seated position and limited thoracic ultrasound was performed of the right chest. See separate imaging. The site appropriate for thoracentesis was selected. The skin was prepped and draped in normal sterile fashion. Lidocaine was used for local analgesia. Fluid was aspirated via the finder needle. A small skin bradly was made with the scalpel and the catheter over the needle apparatus was advanced over the rib into the pleural space. Using the syringe one-way valve system, a total of 1400 mL's of straw-colored fluid was removed. Procedure was terminated due to pleurisy. The catheter was removed and observed to be intact. A sterile dressing was applied. Post procedure chest x-ray was ordered. Fluid was sent for LDH, total protein, cell count, glucose, pH, cytology. gram stain and culture and fungal cultures. The patient tolerated the procedure well without obvious complication. Coding CPT Codes Pulmonary/Thoracic - Pulmonary and Thoracic: 98078 Thoracentesis w imaging ([id number]) [facility] [place]odes ([place]) Pulmonary/Thoracic Procedure 1: Pulmonary and Thoracic: 67034 Thoracentesis w imaging
--- NOTE | 2022-05-14 11:23 | Pulmonology Progress Note ---
Date of Service May 14, 2022 Assessment & Plan (1) Bilateral pleural effusion: (2) Ischemic cardiomyopathy: (3) Dyspnea: (4) Hypoxia: Plan He has bilateral effusions secondary to CKD stage III and systolic heart failure. 1400 mL of pleural fluid removed from the right hemithorax. There remains approximately 300 to 400 mL of fluid. Procedure was aborted due to pleurisy. I suspect the effusion is likely a transudate based on appearance and clinical picture. Pleural fluid studies pending. Postprocedure chest x-ray pending. Cultures sent as well. Please follow-up cytology. Patient is stable for discharge from pulmonary perspective. Thank you for the consultation. Please call with questions. Admission and Anticipated Discharge Date Admission Date: May 01, 2022 Subjective Patient's condition essentially unchanged compared to yesterday. Continues to require low-flow oxygen. Dyspnea with minimal activity. Remains weak. Review of Systems Review of Systems: All systems reviewed & are unremarkable except as noted in HPI & below Physical Exam Physical Exam: Constitutional: Patient appears to be of their stated age. Patient is in no apparent distress. Patient is well-developed. Eyes: Pupils are equal round and reactive to light. Conjunctivae are normal. Anicteric sclera. Ears nose, mouth and throat: Deferred. Neck: Trachea is midline. Visual inspection is normal. Respiratory: Bilateral diminishment at the bases. No tachypnea. Cardiovascular: Regular rate and rhythm. No murmurs. No edema. Gastrointestinal: Normal bowel sounds, soft, nontender and nondistended. No hepatosplenomegaly noted. Musculoskeletal: No cyanosis. Patient is able to move all extremities. Diffusely weak. Skin: No rashes, warm dry and intact. Neurologic: No obvious focal neurological deficits seen. Psychiatric: Alert and oriented x3 with a euthymic affect. Results & Data Results & Data ([facility]) Vital Signs (Past 12 Hours) Vital Signs Temp Pulse Pulse Resp BP Pulse Ox O2 Del Method 05/14/22 10:21 70 05/14/22 08:00 36.9 C 98 H 20 136/74 Room Air 05/14/22 07:50 Nasal Cannula 05/14/22 03:08 36.5 C 70 18 124/66 95 Nasal Cannula O2 Flow Rate 05/14/22 10:21 05/14/22 08:00 05/14/22 07:50 4 05/14/22 03:08 2 PG Care Time/CCT Total # of Minutes Spent Total Time Spent with Patient: Total time spent is greater than 50% in coordination of care (as documented) at patient's floor/unit and/or counseling patient: Coding Level of Care Code 78440 SUB INP/OBS CARE 2/35MIN Diagnoses Bilateral pleural effusion J90 Ischemic cardiomyopathy I25.5 Dyspnea R06.00 Hypoxia R09.02
[2022-05-14 11:57] LABS: Amylase Pleural Fluid 32 U/L
[2022-05-14 12:03] LABS: Glucose Pleural Fluid 132 mg/dl; LDH Pleural Fluid 53 U/L; Total Protein Pleural Fluid < 3.0 gm/dl
--- NOTE | 2022-05-14 12:14 | XRay Report ---
XR chest 1V portable HISTORY: 86 years-old Male S/P Thoracentesis follow-up study in a patient with pleural effusions COMPARISON: Chest CT 05/13/2022 TECHNIQUE: AP view of the chest FINDINGS: Cardiac silhouette is enlarged. Prior median sternotomy with surgical clips of the mediastinum. Left subclavian pacer/AICD. Layering pleural effusions with bibasilar consolidation redemonstrated. Pulmon cody vascular congestion. No postprocedural pneumothorax identified. IMPRESSION: 1. No postprocedural pneumothorax identified. 2. Cardiomegaly with pulmonary vascular congestion. 2. Layering pleural effusions with bibasilar consolidation redemonstrated. ACT 112: Negative or not required by law. The above report was generated using voice recognition software. It may contain grammatical, syntax o r spelling errors. Electronically signed by: Izaiah Wong M.D. 05/14/2022 12:12 PM
--- NOTE | 2022-05-14 13:21 | Hospitalist Progress Note ---
Date of Service May 14, 2022 Assessment & Plan (1) Surgical site infection: Plan per Dr. Hwang's notes with addendum: Nonhealing surgical wound at site of ICD Pocket revision on 05/01/[address] Reeves Chest x-ray:Moderate right and small left pleural effusions with associated bibasilar opacities which could reflect atelectasis or consolidation. Radiographic follow-up is recommended. Moderate cardiomegaly. No evidence for pulmonary edema. -wound VAC discontinued on 05/06/22 -Wound culture growing Klebsiella pneumoniae; MRSA screen negative. IV cefazolin changed to Rocephin on 05/07/2022. Continue IV antibiotics for 2 weeks per ID and then transition to PO antibiotics per ID Needs life long course of PO antibiotics based on sensitivities Appreciate ID, Cardiology , Palliative care and plastic surgery Input Continue wound care with daily dressing changes recommended by surgery Will need ultrasound-guided IV line placed for antibiotics prior to discharge Continue wound care per surgery / feeling tired, weak, poor appetite likely multifactorial: Underlying infection, surgeries, prolonged hospitalization, deconditioning no new source of infection at this point continue Boost, PT/OT d/c Itzel schwartz- may be contributing to weakness 3/ Positive moderate pleural effusion on CT chest Pleural effusion appears to be persistent based on serial x-rays taken during this admission Remains on 2 L of oxygen which patient does not use at home Discussed with building services coordinator, additional metolazone ordered today, in addition to patient's torsemide twice daily, recommend evaluation for thoracentesis Pulmonology service consulted, discussed with Dr. Hopkins He recommends thoracentesis which will be performed tomorrow Hold Eliquis 05/14 For thoracentesis today Eliquis held this morning Creatinine 1.9 Continue torsemide 40 mg p.o. twice daily per nephrology service NSVTs Asymptomatic Prior attending Discussed with cardiology on 05/09/22: Advise no change in medications currently Continue metoprolol succinate 50 mg daily Monitor electrolytes and replace as needed Asymptomatic Transient epistaxis: prn afrin, monitor closely. No active bleeding. (2) CHB (complete heart block): (3) Biventricular ICD (implantable cardioverter-defibrillator) in place: Plan: S/P ICD (4) SHAN (acute kidney injury): (5) CKD (chronic kidney disease) stage 3, GFR 30-59 ml/min: Plan: SHAN on CKD III Likely ATN High risk for progression to ESRD Monitor renal function Avoid nephrotoxic agents as able Appreciate nephrology input Cr 2.8>2.6>2.4>2.2> 2.1 Needs follow-up with nephrology upon discharge 05/12 crea stable 05/13 Creatinine 1.9 Management per #1 05/14 Management per above (6) Chronic combined systolic and diastolic heart failure: Plan: -02/22/2022 echo: EF: 35-39%, mild to moderate AR, moderate MR, severe TR -Monitor volume status -Continue torsemide 40mg BID as recommended by nephrology 05/14 Management of diuretics and pleural effusion per #1 (7) Acute on chronic anemia: Plan: H/H: 09/26. Hgb 9.8 on 04/29/22, 7.7 on 02/22/2022. Prior baseline appeared 9-10 range -Denies melena, hematuria, hematemesis, shortness of breath, chest pain -S/P 2 units PRBC -Monitor CBC Hb stable lately. 3/7 Hg stable (8) Hyponatremia: Plan: Likely due to diuretics Monitor sodium levels Sodium stable in 130s lately. (9) Chronic atrial fibrillation: Plan: Chronic atrial fibrillation anticoagulated on Eliquis Digoxin level: 0.7 Digoxin discontinued secondary to SHAN Cardiology on board Continue metoprolol On Eliquis for anticoagulation (10) CAD (coronary artery disease): (11) Ischemic cardiomyopathy: Plan: CAD s/p CABG -Continue atorvastatin, isosorbide, metoprolol succinate (12) Generalized weakness: Plan: -Deconditioning over past couple of months with recurrent hospitalizations -Continue PT/OT (13) H/O prostate cancer: Plan: S/p radiation, Lupron Follows with Dr. Pham urology Reports chronic dysuria UA not suggestive of UTI Constipation: Continue bowel regimen--hold for diarrhea DVT Px: -On Eliquis-held for thoracentesis Code Status: Full Code--- patient/Family prefers to be full code. Discussed by prior attending on 05/07/22 Disposition: SNF when medically stable Admission and Anticipated Discharge Date Admission Date: May 01, 2022 Subjective Follow-up for pacemaker site infection, bilateral pleural effusion, etc. Seen resting in bed, not in distress, on 2 L of oxygen via nasal cannula States breathing is okay, no chest pain, palpitations, dizziness No other new symptoms noted Review of Systems Review of Systems: all noted and negative except for above Physical Exam Physical Exam: General- oriented x 3, not in distress, speaks in sentences with no effort or accessory muscle use Eyes- anicteric Neck- no JVD Lungs-decreased breath sounds right mid to base, clear on the left No crackles or wheezing Heart- normal rate, regular rhythm; no murmurs Abdomen- normal bowel sounds, nondistended, soft, nontender Extremities- no pretibial edema, no calf tenderness Neuro- alert, oriented x 3; no gross focal neurologic deficits Skin- warm & dry Results & Data Results & Data ([facility]) Vital Signs (Past 12 Hours) Vital Signs Temp Pulse Pulse Resp BP Pulse Ox O2 Del Method 05/14/22 10:21 70 05/14/22 08:00 36.9 C 98 H 20 136/74 Room Air 05/14/22 07:50 Nasal Cannula 05/14/22 03:08 36.5 C 70 18 124/66 95 Nasal Cannula O2 Flow Rate 05/14/22 10:21 05/14/22 08:00 05/14/22 07:50 4 05/14/22 03:08 2 all noted and reviewed including below
[2022-05-14 13:39] LABS: Appearance Pleural Fluid Clear; Basophils, Fluid 1 %; Color Pleural Fluid Yellow; Lymphocytes, Fluid 19 %; Mono,Macrophage,Mesothelial 59 %; Neutrophils, Fluid 21 %; RBC Pleural Fluid Auto < 2000 /uL; Source Pleural Fluid Right Lung; WBC Pleural Fluid Auto 76 /uL
[2022-05-14] MEDS ORDERED: POTASSIUM CHLORIDE CRTAB 20 MEQ TABCR PO STA (14:35)
[2022-05-14] MEDS: oxyCODONE/ACETAMINOPHEN 5mg/325mg TAB PO PRN (15:54)
[2022-05-14] MEDS ORDERED: Nursing to Pharmacy Communication SCH (18:00)
[2022-05-15 06:57] LABS: BUN Creatinine Ratio 48.7 (10-20); Calcium 9.2 mg/dl (8.5-10.1); Creatinine Clr Calc Pharmacy 23.1 ml/min; Est GFR (African American) 35.1 ml/min; Est GFR (Non-African American) 30.3 ml/min; Potassium 3.7 mmol/L (3.5-5.1)
[2022-05-15] MEDS: PANTOprazole 40 MG TAB PO SCH (09:08)
[2022-05-15] MEDS: TORSEMIDE 10 MG TAB PO SCH (09:08)
[2022-05-15] MEDS: ISOSORBIDE MONO EXTENDED REL 30 MG TABCR PO SCH (09:08)
[2022-05-15] MEDS: ADVANCED PROBIOTIC 1250 MG CAPSULE PO SCH (09:08)
[2022-05-15] MEDS: ASCORBIC ACID 500 MG TAB PO SCH (09:08)
[2022-05-15] MEDS: CYANOCOBALAMIN (B-12) 500 MCG TABLET PO SCH (09:08)
[2022-05-15] MEDS: METOPROLOL SUCC 50MG EXT REL TAB PO SCH (09:08)
[2022-05-15] MEDS: ATORVASTATIN 40 MG TAB PO SCH (09:08)
[2022-05-15] MEDS: CHOLECALCIFEROL 1,000 UNITS 25 MCG TAB PO SCH (09:08)
[2022-05-15] MEDS: APIXABAN 2.5 MG TAB PO SCH ×2 (09:09→20:10)
[2022-05-15] MEDS ORDERED: TORSEMIDE 10 MG TAB PO ONE (11:20)
--- NOTE | 2022-05-15 11:24 | Nephrology Progress Note ---
Date of Service May 15, 2022 Assessment & Plan (1) SHAN (acute kidney injury): Plan: Patient with acute kidney injury on CKD3 likely due to ATN in setting of infecte d wound +/- cardiorenal syndrome. His chronic baseline renal function has worsened since late 2021 when it ran in the high ones for baseline creatinine (CKD 3B); since February 16 through March 2022, creatinine runs more in the low to mid twos (still CKD 3B). Patient is receiving IV antibiotics per primary team. Creatinine plateau'd 2.5-2.8 recently but now stable at 1.9. We will continue to monitor renal function closely. Patient is getting a daily BMP. Avoid nephrotoxins and contrast. -We will change his torsemide to 80 mg daily (2) Chronic combined systolic and diastolic heart failure: Plan: Patient with ischemic cardiomyopathy, EF 35%. Home diuretic dose is torsemide 40 mg bid. Currently on torsemide to 40 mg daily which he has been receiving basically since admission. >continue torsemide at 80 mg daily -If patient is still not even with the current dosing regimen, he may need a small dose of metolazone like 2.5 Friday (3) Acute on chronic anemia: Plan: Admission hemoglobin of 7. Patient received 2 units of blood this admission. Monitor and transfuse as needed. Admission and Anticipated Discharge Date Admission Date: May 01, 2022 Subjective Seen for acute kidney injury on CKD. Patient had thoracentesis yesterday for 1.5 L from the right side. Breathing is better. Stable left arm pain but improving. Review of Systems Review of Systems: All other systems were reviewed and negative except as noted in HPI Physical Exam Physical Exam: General exam: Appears comfortable, no acute distress HEENT: Pupils are equal and reactive to light Neck: No JVD, neck is supple trachea is midline Respiratory system: Clear breath sounds bilaterally.Wound VAC on the left upper chest Gastrointestinal: Abdomen is soft, non distended, non tender, bowel sounds are present CVS: Regular rate and rhythm. No murmurs, rubs or gallops Musculoskeletal: No joint or muscle tenderness Extremities: Non tender, no edema, peripheral pulses are present Neuro: Oriented, no tremors, no focal neurological deficits Skin: No rashes Results & Data ([facility]) Vital Signs (Past 12 Hours) Vital Signs Temp Pulse Pulse Resp BP Pulse Ox O2 Del Method 05/15/22 10:51 36.8 C 70 19 119/56 L 99 Nasal Cannula 05/15/22 09:00 Nasal Cannula 05/15/22 06:11 70 05/15/22 07:47 36.6 C 70 18 128/69 98 Nasal Cannula 05/15/22 03:00 36.4 C L 70 19 123/64 98 Nasal Cannula O2 Flow Rate 05/15/22 10:51 2 05/15/22 09:00 2 05/15/22 06:11 05/15/22 07:47 2 05/15/22 03:00 2 Laboratory Results 05/15/22 05:47
--- NOTE | 2022-05-15 17:03 | Hospitalist Progress Note ---
Date of Service May 15, 2022 Assessment & Plan (1) Surgical site infection: Plan per Dr. Hwang's notes with addendum: Nonhealing surgical wound at site of ICD Pocket revision on 05/01/[address] Reeves Chest x-ray:Moderate right and small left pleural effusions with associated bibasilar opacities which could reflect atelectasis or consolidation. Radiographic follow-up is recommended. Moderate cardiomegaly. No evidence for pulmonary edema. -wound VAC discontinued on 05/06/22 -Wound culture growing Klebsiella pneumoniae; MRSA screen negative. IV cefazolin changed to Rocephin on 05/07/2022. Continue IV antibiotics for 2 weeks per ID and then transition to PO antibiotics per ID Needs life long course of PO antibiotics based on sensitivities Appreciate ID, Cardiology , Palliative care and plastic surgery Input Continue wound care with daily dressing changes recommended by surgery Will need ultrasound-guided IV line placed for antibiotics prior to discharge Continue wound care per surgery / feeling tired, weak, poor appetite likely multifactorial: Underlying infection, surgeries, prolonged hospitalization, deconditioning no new source of infection at this point continue Boost, PT/OT d/c Itzel schwartz- may be contributing to weakness 3/ Positive moderate pleural effusion on CT chest Pleural effusion appears to be persistent based on serial x-rays taken during this admission Remains on 2 L of oxygen which patient does not use at home Discussed with operational trainer, additional metolazone ordered today, in addition to patient's torsemide twice daily, recommend evaluation for thoracentesis Pulmonology service consulted, discussed with Dr. Hopkins He recommends thoracentesis which will be performed tomorrow Hold Eliquis 05/14 For thoracentesis today Eliquis held this morning Creatinine 1.9 Continue torsemide 40 mg p.o. twice daily per nephrology service 05/15 Off oxygen supplement since yesterday Feels improved compared to previous day Continue to monitor Creatinine 1.9 Torsemide increased to 80 mg daily per nephro NSVTs Asymptomatic Prior attending Discussed with cardiology on 05/09/22: Advise no change in medications currently Continue metoprolol succinate 50 mg daily Monitor electrolytes and replace as needed Asymptomatic Transient epistaxis: prn afrin, monitor closely. No active bleeding. (2) CHB (complete heart block): (3) Biventricular ICD (implantable cardioverter-defibrillator) in place: Plan: S/P ICD (4) SHAN (acute kidney injury): (5) CKD (chronic kidney disease) stage 3, GFR 30-59 ml/min: Plan: SHAN on CKD III Likely ATN High risk for progression to ESRD Monitor renal function Avoid nephrotoxic agents as able Appreciate nephrology input Cr 2.8>2.6>2.4>2.2> 2.1 Needs follow-up with nephrology upon discharge 05/12 crea stable 05/13 Creatinine 1.9 Management per #1 3 Management per above (6) Chronic combined systolic and diastolic heart failure: Plan: -02/22/2022 echo: EF: 35-39%, mild to moderate AR, moderate MR, severe TR -Monitor volume status -Continue torsemide 40mg BID as recommended by nephrology 05/15 Management of diuretics and pleural effusion per #1 (7) Acute on chronic anemia: Plan: H/H: 09/26. Hgb 9.8 on 04/29/22, 7.7 on 02/22/2022. Prior baseline appeared 9-10 range -Denies melena, hematuria, hematemesis, shortness of breath, chest pain -S/P 2 units PRBC -Monitor CBC Hb stable lately. 3/8 Hg stable (8) Hyponatremia: Plan: Likely due to diuretics Monitor sodium levels Sodium stable in 130s lately. (9) Chronic atrial fibrillation: Plan: Chronic atrial fibrillation anticoagulated on Eliquis Digoxin level: 0.7 Digoxin discontinued secondary to SHAN Cardiology on board Continue metoprolol On Eliquis for anticoagulation (10) CAD (coronary artery disease): (11) Ischemic cardiomyopathy: Plan: CAD s/p CABG -Continue atorvastatin, isosorbide, metoprolol succinate (12) Generalized weakness: Plan: -Deconditioning over past couple of months with recurrent hospitalizations -Continue PT/OT (13) H/O prostate cancer: Plan: S/p radiation, Lupron Follows with Dr. Pham urology Reports chronic dysuria UA not suggestive of UTI Constipation: Continue bowel regimen--hold for diarrhea DVT Px: -On Eliquis Code Status: Full Code--- patient/Family prefers to be full code. Discussed by prior attending on 05/07/22 Disposition: SNF when medically stable Admission and Anticipated Discharge Date Admission Date: May 01, 2022 Subjective Follow-up for pacemaker site infection, etc. Seen resting in bed, comfortable, on room air States he feels improved compared to yesterday Breathing is improving No chest pain Appetite still poor No other symptoms Review of Systems Review of Systems: all noted and negative except for above Physical Exam Physical Exam: General- oriented x 3, not in distress, speaks in sentences with no effort or accessory muscle use Eyes- anicteric Neck- no JVD Lungs- clear breath sounds bilaterally, no rales/wheezes Heart- normal rate, regular rhythm; no murmurs pacemaker- dressing in place Abdomen- normal bowel sounds, nondistended, soft, nontender Extremities- no pretibial edema, no calf tenderness Neuro- alert, oriented x 3; no gross focal neurologic deficits Skin- warm & dry Results & Data Results & Data ([facility]) Vital Signs (Past 12 Hours) Vital Signs Temp Pulse Pulse Resp BP Pulse Ox O2 Del Method 05/15/22 15:29 36.6 C 70 19 122/61 91 Room Air 05/15/22 10:51 36.8 C 70 19 119/56 L 99 Nasal Cannula 05/15/22 09:00 Nasal Cannula 05/15/22 06:11 70 05/15/22 07:47 36.6 C 70 18 128/69 98 Nasal Cannula O2 Flow Rate 05/15/22 15:29 05/15/22 10:51 2 05/15/22 09:00 2 05/15/22 06:11 05/15/22 07:47 2 all noted and reviewed including below
[2022-05-15] MEDS: ALPRAZolam 0.5 MG TABLET PO PRN (20:10)
[2022-05-16 07:03] LABS: BUN Creatinine Ratio 53.6 (10-20); Creatinine Clr Calc Pharmacy 23.8 ml/min; Est GFR (African American) 35.8 ml/min; Est GFR (Non-African American) 30.9 ml/min; Potassium 3.3 mmol/L (3.5-5.1)
[2022-05-16] MEDS: APIXABAN 2.5 MG TAB PO SCH ×2 (08:19→20:33)
[2022-05-16] MEDS: CYANOCOBALAMIN (B-12) 500 MCG TABLET PO SCH (08:20)
[2022-05-16] MEDS: TORSEMIDE 10 MG TAB PO SCH (08:20)
[2022-05-16] MEDS: ATORVASTATIN 40 MG TAB PO SCH (08:20)
[2022-05-16] MEDS: PANTOprazole 40 MG TAB PO SCH (08:20)
[2022-05-16] MEDS: ADVANCED PROBIOTIC 1250 MG CAPSULE PO SCH (08:20)
[2022-05-16] MEDS: ISOSORBIDE MONO EXTENDED REL 30 MG TABCR PO SCH (08:20)
[2022-05-16] MEDS: METOPROLOL SUCC 50MG EXT REL TAB PO SCH (08:21)
[2022-05-16] MEDS: CHOLECALCIFEROL 1,000 UNITS 25 MCG TAB PO SCH (08:21)
[2022-05-16] MEDS: ASCORBIC ACID 500 MG TAB PO SCH (08:21)
[2022-05-16] MEDS: cefTRIAXone SODIUM 1,000 MG Advantage IV SCH (08:38)
[2022-05-16] MEDS ORDERED: POTASSIUM CHLORIDE CRTAB 20 MEQ TABCR PO STA (08:39)
--- NOTE | 2022-05-16 11:14 | Nephrology Progress Note ---
Date of Service May 16, 2022 Assessment & Plan (1) SHAN (acute kidney injury): Plan: Patient with acute kidney injury on CKD3 likely due to ATN in setting of infecte d wound +/- cardiorenal syndrome. His chronic baseline renal function has worsened since late 2021 when it ran in the high ones for baseline creatinine (CKD 3B); since February 16 through March 2022, creatinine runs more in the low to mid twos (still CKD 3B). Patient is receiving IV antibiotics per primary team. Creatinine plateau'd 2.5-2.8 recently but now stable at 1.9. We will continue to monitor renal function closely. Patient is getting a daily BMP. Avoid nephrotoxins and contrast. -We will continue torsemide to 80 mg daily -Start potassium chloride 20meq daily and can be discharged on the same dose (2) Chronic combined systolic and diastolic heart failure: Plan: Patient with ischemic cardiomyopathy, EF 35%. >continue torsemide at 80 mg daily -he is even to slightly negative daily, missing some urine output Admission and Anticipated Discharge Date Admission Date: May 01, 2022 Subjective Seen for CKD and CHF. Chelsea at the bedside today. No shortness of breath. Urine output is good. Potassium was low this morning. Review of Systems Review of Systems: All other systems were reviewed and negative except as noted in HPI Physical Exam Physical Exam: General exam: Appears comfortable, no acute distress HEENT: Pupils are equal and reactive to light Neck: No JVD, neck is supple trachea is midline Respiratory system: Clear breath sounds bilaterally.Wound VAC on the left upper chest Gastrointestinal: Abdomen is soft, non distended, non tender, bowel sounds are present CVS: Regular rate and rhythm. No murmurs, rubs or gallops Musculoskeletal: No joint or muscle tenderness Extremities: Non tender, no edema, peripheral pulses are present Neuro: Oriented, no tremors, no focal neurological deficits Skin: No rashes Results & Data ([facility]) Vital Signs (Past 12 Hours) Vital Signs Temp Pulse Pulse Resp BP Pulse Ox O2 Del Method 05/16/22 08:00 73 05/16/22 03:00 36.5 C 74 20 113/57 L 95 Room Air Laboratory Results 05/16/22 05:36
--- NOTE | 2022-05-16 12:58 | Hospitalist Progress Note ---
Date of Service May 16, 2022 Assessment & Plan (1) Surgical site infection: Plan per Dr. Hwang's notes with addendum: Nonhealing surgical wound at site of ICD Pocket revision on 05/01/[address] Reeves Chest x-ray:Moderate right and small left pleural effusions with associated bibasilar opacities which could reflect atelectasis or consolidation. Radiographic follow-up is recommended. Moderate cardiomegaly. No evidence for pulmonary edema. -wound VAC discontinued on 05/06/22 -Wound culture growing Klebsiella pneumoniae; MRSA screen negative. IV cefazolin changed to Rocephin on 05/07/2022. Continue IV antibiotics for 2 weeks per ID and then transition to PO antibiotics per ID Needs life long course of PO antibiotics based on sensitivities Appreciate ID, Cardiology , Palliative care and plastic surgery Input Continue wound care with daily dressing changes recommended by surgery Will need ultrasound-guided IV line placed for antibiotics prior to discharge Continue wound care per surgery 05/12 feeling tired, weak, poor appetite likely multifactorial: Underlying infection, surgeries, prolonged hospitalization, deconditioning no new source of infection at this point continue Boost, PT/OT d/c Itzel schwartz- may be contributing to weakness 05/13 Positive moderate pleural effusion on CT chest Pleural effusion appears to be persistent based on serial x-rays taken during this admission Remains on 2 L of oxygen which patient does not use at home Discussed with nursing education consultant, additional metolazone ordered today, in addition to patient's torsemide twice daily, recommend evaluation for thoracentesis Pulmonology service consulted, discussed with Dr. Hopkins He recommends thoracentesis which will be performed tomorrow Hold Eliquis 05/14 For thoracentesis today Eliquis held this morning Creatinine 1.9 Continue torsemide 40 mg p.o. twice daily per nephrology service 05/15 Off oxygen supplement since yesterday Feels improved compared to previous day Continue to monitor Creatinine 1.9 Torsemide increased to 80 mg daily per nephro 05/16 remains off oxygen appears somewhat stronger continue diuretics per Nephro continue IV Ceftri x 1 week pacemaker wound site check requested from Wound care service discussed with Plastic surgery- patient to be seen earliest on Friday when Dr. Palma is back NSVTs Asymptomatic Prior attending Discussed with cardiology on 05/09/22: Advise no change in medications currently Continue metoprolol succinate 50 mg daily Monitor electrolytes and replace as needed Asymptomatic Transient epistaxis: prn afrin, monitor closely. No active bleeding. (2) CHB (complete heart block): (3) Biventricular ICD (implantable cardioverter-defibrillator) in place: Plan: S/P ICD (4) SHAN (acute kidney injury): (5) CKD (chronic kidney disease) stage 3, GFR 30-59 ml/min: Plan: SHAN on CKD III Likely ATN High risk for progression to ESRD Monitor renal function Avoid nephrotoxic agents as able Appreciate nephrology input Cr 2.8>2.6>2.4>2.2> 2.1 Needs follow-up with nephrology upon discharge 05/12 crea stable 05/13 Creatinine 1.9 Management per #1 05/15 Management per above 05/16 on Torsemide 80mg daily and K supplement (6) Chronic combined systolic and diastolic heart failure: Plan: -02/22/2022 echo: EF: 35-39%, mild to moderate AR, moderate MR, severe TR -Monitor volume status -Continue torsemide 40mg BID as recommended by nephrology 05/16 Management of diuretics and pleural effusion per #1 (7) Acute on chronic anemia: Plan: H/H: 09/26. Hgb 9.8 on 04/29/22, 7.7 on 02/22/2022. Prior baseline appeared 9-10 range -Denies melena, hematuria, hematemesis, shortness of breath, chest pain -S/P 2 units PRBC -Monitor CBC Hb stable lately. 3/9 Hg stable (8) Hyponatremia: Plan: Likely due to diuretics Monitor sodium levels Sodium stable in 130s lately. (9) Chronic atrial fibrillation: Plan: Chronic atrial fibrillation anticoagulated on Eliquis Digoxin level: 0.7 Digoxin discontinued secondary to SHAN Cardiology on board Continue metoprolol On Eliquis for anticoagulation (10) CAD (coronary artery disease): (11) Ischemic cardiomyopathy: Plan: CAD s/p CABG -Continue atorvastatin, isosorbide, metoprolol succinate (12) Generalized weakness: Plan: -Deconditioning over past couple of months with recurrent hospitalizations -Continue PT/OT (13) H/O prostate cancer: Plan: S/p radiation, Lupron Follows with Dr. Pham urology Reports chronic dysuria UA not suggestive of UTI Constipation: Continue bowel regimen--hold for diarrhea DVT Px: -On Eliquis Code Status: Full Code--- patient/Family prefers to be full code. Discussed by prior attending on 05/07/22 Disposition: SNF when medically stable plan of care discussed with patient and his Chelsea in detail and at length all questions answered they are understanding, agreeable, comfortable with the plan of care Admission and Anticipated Discharge Date Admission Date: May 01, 2022 Subjective ff up for pacemaker site infection, pleural effusion, etc seen resting in bedside chair, comfortable not in distress states he feels about the same breathing is ok no chest pain, pain over PM site no fever/chills appetite not that great no other symptoms Review of Systems Review of Systems: all noted and negative except for above Physical Exam Physical Exam: General- oriented x 3, not in distress, speaks in sentences with no effort or accessory muscle use Eyes- anicteric Neck- no JVD Lungs- clear breath sounds bilaterally, no rales/wheezes Heart- normal rate, regular rhythm; no murmurs PM surgical wound- sutures in place, wound not yet opposed ~1/2in space very small amount of blood ooozing no surrounding erythema/warmth/tenderness Abdomen- normal bowel sounds, nondistended, soft, nontender Extremities- no pretibial edema, no calf tenderness Neuro- alert, oriented x 3; no gross focal neurologic deficits Skin- warm & dry Results & Data Results & Data ([facility]) Vital Signs (Past 12 Hours) Vital Signs Temp Pulse Pulse Resp BP Pulse Ox O2 Del Method 05/16/22 12:10 36.4 C L 69 19 116/66 97 Room Air 05/16/22 08:00 73 05/16/22 03:00 36.5 C 74 20 113/57 L 95 Room Air all noted and reviewed including below
[2022-05-16] MEDS: ALPRAZolam 0.5 MG TABLET PO PRN (20:35)
[2022-05-17 06:43] LABS: BUN Creatinine Ratio 52.8 (10-20); Calcium 8.9 mg/dl (8.5-10.1); Creatinine Clr Calc Pharmacy 23.8 ml/min; Est GFR (African American) 35.6 ml/min; Est GFR (Non-African American) 30.7 ml/min; Potassium 3.3 mmol/L (3.5-5.1)
[2022-05-17] MEDS: cefTRIAXone SODIUM 1,000 MG Advantage IV SCH (08:20)
[2022-05-17] MEDS: CYANOCOBALAMIN (B-12) 500 MCG TABLET PO SCH (08:21)
[2022-05-17] MEDS: APIXABAN 2.5 MG TAB PO SCH ×2 (08:21→19:46)
[2022-05-17] MEDS: ADVANCED PROBIOTIC 1250 MG CAPSULE PO SCH (08:21)
[2022-05-17] MEDS: TORSEMIDE 10 MG TAB PO SCH (08:21)
[2022-05-17] MEDS: CHOLECALCIFEROL 1,000 UNITS 25 MCG TAB PO SCH (08:22)
[2022-05-17] MEDS: ASCORBIC ACID 500 MG TAB PO SCH (08:22)
[2022-05-17] MEDS: ISOSORBIDE MONO EXTENDED REL 30 MG TABCR PO SCH (08:22)
[2022-05-17] MEDS: PANTOprazole 40 MG TAB PO SCH (08:22)
[2022-05-17] MEDS: METOPROLOL SUCC 50MG EXT REL TAB PO SCH (08:24)
[2022-05-17] MEDS ORDERED: POTASSIUM CHLORIDE CRTAB 20 MEQ TABCR PO SCH (09:00)
[2022-05-17] MEDS: ATORVASTATIN 40 MG TAB PO SCH (10:41)
--- NOTE | 2022-05-17 10:59 | Surgery Progress Note ---
Date of Service May 17, 2022 Assessment & Plan (1) Biventricular ICD (implantable cardioverter-defibrillator) in place: Plan: Reviewed recent note from Alicia Capone and agree with continuing Aquacel Ag and Optifoam. No further intervention planned at this time. Patient will need to follow up with wound care center upon discharge. Plan per hospitalist is for patient to be discharged to SNF this or Friday. Admission and Anticipated Discharge Date Admission Date: May 01, 2022 Subjective Julius is sitting in chair at bedside finishing breakfast. I was called yesterday by Dr. Jeffrey to view patient's left chest wound because patient is getting ready to be discharge to SNF. Wound is currently being dressed with Aquacel Ag and Optifoam. Julius has been evaluated by Alicia Capone and she is recommending that wound continue to be dressed with Aquacel Ag and Optifoam. Julius denies any pain at wound site. Review of Systems Constitutional: no fever and no chills Integumentary: as per Subjective / HPI Physical Exam Constitutional: WD/WN, vitals as above Respiratory: normal respiratory effort; no respiratory distress and no labored breathing Skin: Left chest incision with area of separation in the middle- pacemaker is not exposed. There is bloody drainage on both the incision and Optifoam dressing. No evidence of cellulitis. Results & Data ([facility]) Vital Signs (Past 12 Hours) Vital Signs Temp Pulse Pulse Resp BP Pulse Ox O2 Del Method 05/17/22 08:25 72 102/59 L 05/17/22 07:25 36.8 C 70 16 94/54 L 94 Room Air 05/17/22 03:11 36.3 C L 72 18 119/60 93 Room Air 05/16/22 22:55 36.9 C 70 18 113/59 L 93 Room Air PG Care Time/CCT Total # of Minutes Spent Total Time Spent with Patient: Total time spent is greater than 50% in coordination of care (as documented) at patient's floor/unit and/or counseling patient: Coding Level of Care Code 36350 SUB INP/OBS CARE 04/03MIN Diagnoses Biventricular ICD (implantable cardioverter-defibrillator) in place Z95.810
[2022-05-17] MEDS ORDERED: POTASSIUM CHLORIDE 20 MEQ/15 ML UDC PO STA (11:46)
--- NOTE | 2022-05-17 11:48 | Nephrology Progress Note ---
Date of Service May 17, 2022 Assessment & Plan (1) SHAN (acute kidney injury): Plan: Patient with acute kidney injury on CKD3 likely due to ATN in setting of infect ed wound +/- cardiorenal syndrome. His chronic baseline renal function has worsened since late 2021 when it ran in the high ones for baseline creatinine (CKD 3B); since February 16 through March 2022, creatinine runs more in the low to mid twos (still CKD 3B). Patient is receiving IV antibiotics per primary team. Creatinine plateau'd 2.5-2.8 recently but now stable at 1.9. We will continue to monitor renal function closely. Avoid nephrotoxins and contrast. From renal standpoint patient can be discharged with renal follow-up in 1 to 2 weeks -We will continue torsemide to 80 mg daily -Increase potassium chloride to 40meq daily and can be discharged on the same dose (2) Chronic combined systolic and diastolic heart failure: Plan: Patient with ischemic cardiomyopathy, EF 35%. >continue torsemide at 80 mg daily -Patient was net negative about 500 mL yesterday. Admission and Anticipated Discharge Date Admission Date: May 01, 2022 Subjective Seen for acute kidney injury on CKD and CHF. Complaint is left arm pain. No shortness of breath. He was left -500 mm yesterday. Review of Systems Review of Systems: All other systems were reviewed and negative except as noted in HPI Physical Exam Physical Exam: General exam: Appears comfortable, no acute distress HEENT: Pupils are equal and reactive to light Neck: No JVD, neck is supple trachea is midline Respiratory system: Clear breath sounds bilaterally.Wound VAC on the left upper chest Gastrointestinal: Abdomen is soft, non distended, non tender, bowel sounds are present CVS: Regular rate and rhythm. No murmurs, rubs or gallops Musculoskeletal: No joint or muscle tenderness Extremities: Non tender, no edema, peripheral pulses are present Neuro: Oriented, no tremors, no focal neurological deficits Skin: No rashes Results & Data ([facility]) Vital Signs (Past 12 Hours) Vital Signs Temp Pulse Pulse Resp BP Pulse Ox O2 Del Method 05/17/22 08:25 72 102/59 L 05/17/22 07:25 36.8 C 70 16 94/54 L 94 Room Air 05/17/22 03:11 36.3 C L 72 18 119/60 93 Room Air Laboratory Results 05/17/22 05:32
--- NOTE | 2022-05-17 13:36 | Hospitalist Progress Note ---
Date of Service May 17, 2022 Assessment & Plan (1) Surgical site infection: Plan per Dr. Hwang's notes with addendum: Nonhealing surgical wound at site of ICD Pocket revision on 05/01/[address] Reeves Chest x-ray:Moderate right and small left pleural effusions with associated bibasilar opacities which could reflect atelectasis or consolidation. Radiographic follow-up is recommended. Moderate cardiomegaly. No evidence for pulmonary edema. -wound VAC discontinued on 05/06/22 -Wound culture growing Klebsiella pneumoniae; MRSA screen negative. IV cefazolin changed to Rocephin on 05/07/2022. Continue IV antibiotics for 2 weeks per ID and then transition to PO antibiotics per ID Needs life long course of PO antibiotics based on sensitivities Appreciate ID, Cardiology , Palliative care and plastic surgery Input Continue wound care with daily dressing changes recommended by surgery Will need ultrasound-guided IV line placed for antibiotics prior to discharge Continue wound care per surgery 05/12 feeling tired, weak, poor appetite likely multifactorial: Underlying infection, surgeries, prolonged hospitalization, deconditioning no new source of infection at this point continue Boost, PT/OT d/c Itzel schwartz- may be contributing to weakness 05/13 Positive moderate pleural effusion on CT chest Pleural effusion appears to be persistent based on serial x-rays taken during this admission Remains on 2 L of oxygen which patient does not use at home Discussed with manufacturing production technician, additional metolazone ordered today, in addition to patient's torsemide twice daily, recommend evaluation for thoracentesis Pulmonology service consulted, discussed with Dr. Hopkins He recommends thoracentesis which will be performed tomorrow Hold Eliquis 05/14 For thoracentesis today Eliquis held this morning Creatinine 1.9 Continue torsemide 40 mg p.o. twice daily per nephrology service 05/15 Off oxygen supplement since yesterday Feels improved compared to previous day Continue to monitor Creatinine 1.9 Torsemide increased to 80 mg daily per nephro 05/16 remains off oxygen appears somewhat stronger continue diuretics per Nephro continue IV Ceftri x 1 week pacemaker wound site check requested from Wound care service discussed with Plastic surgery- patient to be seen earliest on Friday when Dr. Palma is back 05/17 no further intervention per Plastic Sx service continue wound care continue til May 22, then Augmentin NSVTs Asymptomatic Prior attending Discussed with cardiology on 05/09/22: Advise no change in medications currently Continue metoprolol succinate 50 mg daily Monitor electrolytes and replace as needed Asymptomatic Transient epistaxis: prn afrin, monitor closely. No active bleeding. (2) CHB (complete heart block): (3) Biventricular ICD (implantable cardioverter-defibrillator) in place: Plan: S/P ICD (4) SHAN (acute kidney injury): (5) CKD (chronic kidney disease) stage 3, GFR 30-59 ml/min: Plan: SHAN on CKD III Likely ATN High risk for progression to ESRD Monitor renal function Avoid nephrotoxic agents as able Appreciate nephrology input Cr 2.8>2.6>2.4>2.2> 2.1 Needs follow-up with nephrology upon discharge 05/12 crea stable 05/13 Creatinine 1.9 Management per #1 05/15 Management per above 05/16 on Torsemide 80mg daily and K supplement 05/17 continue on Torsemide 80mg daily and K supplement (6) Chronic combined systolic and diastolic heart failure: Plan: -02/22/2022 echo: EF: 35-39%, mild to moderate AR, moderate MR, severe TR -Monitor volume status -Continue torsemide 40mg BID as recommended by nephrology 05/17 clear breath sounds Management of diuretics and pleural effusion per #1 (7) Acute on chronic anemia: Plan: H/H: 09/26. Hgb 9.8 on 04/29/22, 7.7 on 02/22/2022. Prior baseline appeared 9-10 range -Denies melena, hematuria, hematemesis, shortness of breath, chest pain -S/P 2 units PRBC -Monitor CBC Hb stable lately. 3/9 Hg stable (8) Hyponatremia: Plan: Likely due to diuretics Monitor sodium levels Sodium stable in 130s (9) Chronic atrial fibrillation: Plan: Chronic atrial fibrillation anticoagulated on Eliquis Digoxin level: 0.7 Digoxin discontinued secondary to SHAN Cardiology on board Continue metoprolol On Eliquis for anticoagulation (10) CAD (coronary artery disease): (11) Ischemic cardiomyopathy: Plan: CAD s/p CABG -Continue atorvastatin, isosorbide, metoprolol succinate (12) Generalized weakness: Plan: -Deconditioning over past couple of months with recurrent hospitalizations -Continue PT/OT (13) H/O prostate cancer: Plan: S/p radiation, Lupron Follows with Dr. Pham urology Reports chronic dysuria UA not suggestive of UTI Constipation: Continue bowel regimen--hold for diarrhea DVT Px: -On Eliquis Code Status: Full Code--- patient/Family prefers to be full code. Discussed by prior attending on 05/07/22 Disposition: SNF when medically stable plan of care discussed with patient and his [place] in detail and at length all questions answered they are understanding, agreeable, comfortable with the plan of care Admission and Anticipated Discharge Date Admission Date: May 01, 2022 Subjective ff up for pacemaker infection, pleural effusion, etc seen resting in chair, comfortable on room air states he feels fine overall "not yet awake" breathing is ok no pain over PM site no other symptoms Review of Systems Review of Systems: all noted and negative except for above Physical Exam Physical Exam: General- oriented x 3, not in distress, speaks in sentences with no effort or accessory muscle use Eyes- anicteric Neck- no JVD Lungs- clear BS bilaterally, no rales/wheezes Heart- normal rate, regular rhythm; no murmurs Abdomen- normal bowel sounds, nondistended, soft, nontender Extremities- no pretibial edema, no calf tenderness Neuro- alert, oriented x 3; no gross focal neurologic deficits Skin- warm & dry Results & Data Results & Data ([facility]) Vital Signs (Past 12 Hours) Vital Signs Temp Pulse Pulse Resp BP Pulse Ox O2 Del Method 05/17/22 11:58 36.5 C 70 18 112/62 96 Room Air 05/17/22 08:00 Room Air 05/17/22 08:25 72 102/59 L 05/17/22 07:25 36.8 C 70 16 94/54 L 94 Room Air 05/17/22 03:11 36.3 C L 72 18 119/60 93 Room Air all noted and reviewed including below
[2022-05-17] MEDS: ACETAMINOPHEN 325 MG TAB PO PRN (16:48)
[2022-05-17] MEDS: ALPRAZolam 0.5 MG TABLET PO PRN (19:45)
[2022-05-18 06:30] LABS: BUN Creatinine Ratio 51.3 (10-20); Calcium 8.9 mg/dl (8.5-10.1); Creatinine Clr Calc Pharmacy 23.2 ml/min; Est GFR (African American) 35.6 ml/min; Est GFR (Non-African American) 30.7 ml/min; Potassium 3.8 mmol/L (3.5-5.1)
[2022-05-18] MEDS: TORSEMIDE 10 MG TAB PO SCH (08:05)
[2022-05-18] MEDS: cefTRIAXone SODIUM 1,000 MG Advantage IV SCH (08:05)
[2022-05-18] MEDS: ISOSORBIDE MONO EXTENDED REL 30 MG TABCR PO SCH (08:05)
[2022-05-18] MEDS: APIXABAN 2.5 MG TAB PO SCH ×2 (08:05→19:54)
[2022-05-18] MEDS: CYANOCOBALAMIN (B-12) 500 MCG TABLET PO SCH (08:06)
[2022-05-18] MEDS: ATORVASTATIN 40 MG TAB PO SCH (08:06)
[2022-05-18] MEDS: ADVANCED PROBIOTIC 1250 MG CAPSULE PO SCH (08:07)
[2022-05-18] MEDS: METOPROLOL SUCC 50MG EXT REL TAB PO SCH (08:07)
[2022-05-18] MEDS: PANTOprazole 40 MG TAB PO SCH (08:07)
[2022-05-18] MEDS: ASCORBIC ACID 500 MG TAB PO SCH (08:07)
[2022-05-18] MEDS: POTASSIUM CHLORIDE PWD 20 MEQ PACK PO SCH (08:07)
[2022-05-18] MEDS: CHOLECALCIFEROL 1,000 UNITS 25 MCG TAB PO SCH (08:08)
[2022-05-18] MEDS ORDERED: POTASSIUM CHLORIDE CRTAB 20 MEQ TABCR PO SCH (09:00)
--- NOTE | 2022-05-18 14:43 | Hospitalist Progress Note ---
Date of Service May 18, 2022 Assessment & Plan (1) Surgical site infection: Plan per Dr. Hwang's notes with addendum: Nonhealing surgical wound at site of ICD Pocket revision on 05/01/[address] Reeves Chest x-ray:Moderate right and small left pleural effusions with associated bibasilar opacities which could reflect atelectasis or consolidation. Radiographic follow-up is recommended. Moderate cardiomegaly. No evidence for pulmonary edema. -wound VAC discontinued on 05/06/22 -Wound culture growing Klebsiella pneumoniae; MRSA screen negative. IV cefazolin changed to Rocephin on 05/07/2022. Continue IV antibiotics for 2 weeks per ID and then transition to PO antibiotics per ID Needs life long course of PO antibiotics based on sensitivities Appreciate ID, Cardiology , Palliative care and plastic surgery Input Continue wound care with daily dressing changes recommended by surgery Will need ultrasound-guided IV line placed for antibiotics prior to discharge Continue wound care per surgery 05/12 feeling tired, weak, poor appetite likely multifactorial: Underlying infection, surgeries, prolonged hospitalization, deconditioning no new source of infection at this point continue Boost, PT/OT d/c Itzel schwartz- may be contributing to weakness 05/13 Positive moderate pleural effusion on CT chest Pleural effusion appears to be persistent based on serial x-rays taken during this admission Remains on 2 L of oxygen which patient does not use at home Discussed with die press operator, additional metolazone ordered today, in addition to patient's torsemide twice daily, recommend evaluation for thoracentesis Pulmonology service consulted, discussed with Dr. Hopkins He recommends thoracentesis which will be performed tomorrow Hold Eliquis 05/14 For thoracentesis today Eliquis held this morning Creatinine 1.9 Continue torsemide 40 mg p.o. twice daily per nephrology service 05/15 Off oxygen supplement since yesterday Feels improved compared to previous day Continue to monitor Creatinine 1.9 Torsemide increased to 80 mg daily per nephro 05/16 remains off oxygen appears somewhat stronger continue diuretics per Nephro continue IV Ceftri x 1 week pacemaker wound site check requested from Wound care service discussed with Plastic surgery- patient to be seen earliest on Friday when Dr. Palma is back 05/18 no further intervention per Plastic Sx service continue wound care continue Ceftri til May 22, then Augmentin NSVTs Asymptomatic Prior attending Discussed with cardiology on 05/09/22: Advise no change in medications currently Continue metoprolol succinate 50 mg daily Monitor electrolytes and replace as needed Asymptomatic Transient epistaxis: prn afrin, monitor closely. No active bleeding. (2) CHB (complete heart block): (3) Biventricular ICD (implantable cardioverter-defibrillator) in place: Plan: S/P ICD (4) SHAN (acute kidney injury): (5) CKD (chronic kidney disease) stage 3, GFR 30-59 ml/min: Plan: SHAN on CKD III Likely ATN High risk for progression to ESRD Monitor renal function Avoid nephrotoxic agents as able Appreciate nephrology input Cr 2.8>2.6>2.4>2.2> 2.1 Needs follow-up with nephrology upon discharge 05/18 crea stable continue on Torsemide 80mg daily and K supplement (6) Chronic combined systolic and diastolic heart failure: Plan: -02/22/2022 echo: EF: 35-39%, mild to moderate AR, moderate MR, severe TR -Monitor volume status -Continue torsemide 40mg BID as recommended by nephrology 05/17 clear breath sounds Management of diuretics and pleural effusion per #1 (7) Acute on chronic anemia: Plan: H/H: 09/26. Hgb 9.8 on 04/29/22, 7.7 on 02/22/2022. Prior baseline appeared 9-10 range -Denies melena, hematuria, hematemesis, shortness of breath, chest pain -S/P 2 units PRBC -Monitor CBC Hb stable lately. 05/18 Hg stable (8) Hyponatremia: Plan: Likely due to diuretics Monitor sodium levels Sodium stable in 130s (9) Chronic atrial fibrillation: Plan: Chronic atrial fibrillation anticoagulated on Eliquis Digoxin level: 0.7 Digoxin discontinued secondary to SHAN Cardiology on board Continue metoprolol On Eliquis for anticoagulation (10) CAD (coronary artery disease): (11) Ischemic cardiomyopathy: Plan: CAD s/p CABG -Continue atorvastatin, isosorbide, metoprolol succinate (12) Generalized weakness: Plan: -Deconditioning over past couple of months with recurrent hospitalizations -Continue PT/OT (13) H/O prostate cancer: Plan: S/p radiation, Lupron Follows with Dr. Pham urology Reports chronic dysuria UA not suggestive of UTI Constipation: Continue bowel regimen--hold for diarrhea DVT Px: -On Eliquis Code Status: Full Code--- patient/Family prefers to be full code. Discussed by prior attending on 05/07/22 Disposition: SNF tomorrow Admission and Anticipated Discharge Date Admission Date: May 01, 2022 Subjective ff up for pacemaker infection, etc seen resting in bed, sitting up on room air states he feels ok today overall denies pain over PM site no SOB no other symptoms ambulates in the room with no problems Review of Systems Review of Systems: all noted and negative except for above Physical Exam Physical Exam: General- oriented x 3, not in distress, speaks in sentences with no effort or accessory muscle use Eyes- anicteric Neck- no JVD Lungs- clear breath sounds bilaterally, no rales/wheezes Heart- normal rate, regular rhythm; no murmurs PM site: dressing in place Abdomen- normal bowel sounds, nondistended, soft, nontender Extremities- no pretibial edema, no calf tenderness Neuro- alert, oriented x 3; no gross focal neurologic deficits Skin- warm & dry Results & Data Results & Data ([facility]) Vital Signs (Past 12 Hours) Vital Signs Temp Pulse Pulse Pulse Resp BP Pulse Ox 05/18/22 11:03 36.8 C 70 18 146/73 H 98 05/18/22 08:00 05/18/22 07:21 36.9 C 70 18 118/65 95 05/18/22 07:14 71 05/18/22 03:13 36.5 C 74 16 114/54 L 94 O2 Del Method 05/18/22 11:03 Room Air 05/18/22 08:00 Room Air 05/18/22 07:21 Room Air 05/18/22 07:14 05/18/22 03:13 Room Air all noted and reviewed including below
[2022-05-18] MEDS: ACETAMINOPHEN 325 MG TAB PO PRN (19:54)
[2022-05-18] MEDS: ALPRAZolam 0.5 MG TABLET PO PRN (19:54)
[2022-05-18] MEDS ORDERED: traMADol HCL 50 MG TABLET PO PRN (21:41)
[2022-05-19] MEDS: cefTRIAXone SODIUM 1,000 MG Advantage IV SCH (07:49)
[2022-05-19] MEDS: ADVANCED PROBIOTIC 1250 MG CAPSULE PO SCH (07:50)
[2022-05-19] MEDS: METOPROLOL SUCC 50MG EXT REL TAB PO SCH (07:50)
[2022-05-19] MEDS: ISOSORBIDE MONO EXTENDED REL 30 MG TABCR PO SCH (07:50)
[2022-05-19] MEDS: ATORVASTATIN 40 MG TAB PO SCH (07:50)
[2022-05-19] MEDS: ASCORBIC ACID 500 MG TAB PO SCH (07:51)
[2022-05-19] MEDS: CYANOCOBALAMIN (B-12) 500 MCG TABLET PO SCH (07:51)
[2022-05-19] MEDS: PANTOprazole 40 MG TAB PO SCH (07:51)
[2022-05-19] MEDS: CHOLECALCIFEROL 1,000 UNITS 25 MCG TAB PO SCH (07:52)
[2022-05-19] MEDS: APIXABAN 2.5 MG TAB PO SCH ×2 (07:52→21:09)
[2022-05-19] MEDS: TORSEMIDE 10 MG TAB PO SCH (07:52)
[2022-05-19] MEDS: POTASSIUM CHLORIDE PWD 20 MEQ PACK PO SCH (07:53)
[2022-05-19 08:44] LABS: BUN Creatinine Ratio 49.7 (10-20); Calcium 8.7 mg/dl (8.5-10.1); Creatinine Clr Calc Pharmacy 25.5 ml/min; Est GFR (Non-African American) 34.5 ml/min; Potassium 3.8 mmol/L (3.5-5.1)
--- NOTE | 2022-05-19 17:17 | Hospitalist Progress Note ---
Date of Service May 19, 2022 Assessment & Plan (1) Surgical site infection: Plan per Dr. Hwang's notes with addendum: Nonhealing surgical wound at site of ICD Pocket revision on 05/01/[address] Reeves Chest x-ray:Moderate right and small left pleural effusions with associated bibasilar opacities which could reflect atelectasis or consolidation. Radiographic follow-up is recommended. Moderate cardiomegaly. No evidence for pulmonary edema. -wound VAC discontinued on 05/06/22 -Wound culture growing Klebsiella pneumoniae; MRSA screen negative. IV cefazolin changed to Rocephin on 05/07/2022. Continue IV antibiotics for 2 weeks per ID and then transition to PO antibiotics per ID Needs life long course of PO antibiotics based on sensitivities Appreciate ID, Cardiology , Palliative care and plastic surgery Input Continue wound care with daily dressing changes recommended by surgery Will need ultrasound-guided IV line placed for antibiotics prior to discharge Continue wound care per surgery 05/12 feeling tired, weak, poor appetite likely multifactorial: Underlying infection, surgeries, prolonged hospitalization, deconditioning no new source of infection at this point continue Boost, PT/OT d/c Itzel schwartz- may be contributing to weakness 05/13 Positive moderate pleural effusion on CT chest Pleural effusion appears to be persistent based on serial x-rays taken during this admission Remains on 2 L of oxygen which patient does not use at home Discussed with flumer, additional metolazone ordered today, in addition to patient's torsemide twice daily, recommend evaluation for thoracentesis Pulmonology service consulted, discussed with Dr. Hopkins He recommends thoracentesis which will be performed tomorrow Hold Eliquis 05/14 For thoracentesis today Eliquis held this morning Creatinine 1.9 Continue torsemide 40 mg p.o. twice daily per nephrology service 05/15 Off oxygen supplement since yesterday Feels improved compared to previous day Continue to monitor Creatinine 1.9 Torsemide increased to 80 mg daily per nephro 05/16 remains off oxygen appears somewhat stronger continue diuretics per Nephro continue IV Ceftri x 1 week pacemaker wound site check requested from Wound care service discussed with Plastic surgery- patient to be seen earliest on Friday when Dr. Palma is back 05/18 no further intervention per Plastic Sx service continue wound care continue Ceftri til May 22, then Augmentin NSVTs Asymptomatic Prior attending Discussed with cardiology on 05/09/22: Advise no change in medications currently Continue metoprolol succinate 50 mg daily Monitor electrolytes and replace as needed Asymptomatic Transient epistaxis: prn afrin, monitor closely. No active bleeding. (2) CHB (complete heart block): (3) Biventricular ICD (implantable cardioverter-defibrillator) in place: Plan: S/P ICD (4) SHAN (acute kidney injury): (5) CKD (chronic kidney disease) stage 3, GFR 30-59 ml/min: Plan: SHAN on CKD III Likely ATN High risk for progression to ESRD Monitor renal function Avoid nephrotoxic agents as able Appreciate nephrology input Cr 2.8>2.6>2.4>2.2> 2.1 Needs follow-up with nephrology upon discharge 05/18 crea stable continue on Torsemide 80mg daily and K supplement (6) Chronic combined systolic and diastolic heart failure: Plan: -02/22/2022 echo: EF: 35-39%, mild to moderate AR, moderate MR, severe TR -Monitor volume status -Continue torsemide 40mg BID as recommended by nephrology 05/17 clear breath sounds Management of diuretics and pleural effusion per #1 (7) Acute on chronic anemia: Plan: H/H: 09/26. Hgb 9.8 on 04/29/22, 7.7 on 02/22/2022. Prior baseline appeared 9-10 range -Denies melena, hematuria, hematemesis, shortness of breath, chest pain -S/P 2 units PRBC -Monitor CBC Hb stable lately. 05/18 Hg stable (8) Hyponatremia: Plan: Likely due to diuretics Monitor sodium levels Sodium stable in 130s (9) Chronic atrial fibrillation: Plan: Chronic atrial fibrillation anticoagulated on Eliquis Digoxin level: 0.7 Digoxin discontinued secondary to SHAN Cardiology on board Continue metoprolol On Eliquis for anticoagulation (10) CAD (coronary artery disease): (11) Ischemic cardiomyopathy: Plan: CAD s/p CABG -Continue atorvastatin, isosorbide, metoprolol succinate (12) Generalized weakness: Plan: -Deconditioning over past couple of months with recurrent hospitalizations -Continue PT/OT (13) H/O prostate cancer: Plan: S/p radiation, Lupron Follows with Dr. Pham urology Reports chronic dysuria UA not suggestive of UTI Constipation: Continue bowel regimen--hold for diarrhea DVT Px: -On Eliquis Code Status: Full Code--- patient/Family prefers to be full code. Discussed by prior attending on 05/07/22 Disposition: SNF tomorrow Admission and Anticipated Discharge Date Admission Date: May 01, 2022 Results & Data Results & Data ([facility]) Vital Signs (Past 12 Hours) Vital Signs Temp Pulse Pulse Resp BP Pulse Ox O2 Del Method 05/19/22 14:44 36.3 C L 70 18 119/68 94 Room Air 05/19/22 11:38 36.4 C L 69 69 16 116/73 95 05/19/22 07:23 36.4 C L 69 16 116/73 95 Room Air
[2022-05-19] MEDS: ALPRAZolam 0.5 MG TABLET PO PRN (21:09)
[2022-05-20] MEDS: cefTRIAXone SODIUM 1,000 MG Advantage IV SCH (08:33)
[2022-05-20] MEDS: ADVANCED PROBIOTIC 1250 MG CAPSULE PO SCH (08:34)
[2022-05-20] MEDS: TORSEMIDE 10 MG TAB PO SCH (08:34)
[2022-05-20] MEDS: ISOSORBIDE MONO EXTENDED REL 30 MG TABCR PO SCH (08:34)
[2022-05-20] MEDS: CHOLECALCIFEROL 1,000 UNITS 25 MCG TAB PO SCH (08:34)
[2022-05-20] MEDS: CYANOCOBALAMIN (B-12) 500 MCG TABLET PO SCH (08:34)
[2022-05-20] MEDS: PANTOprazole 40 MG TAB PO SCH (08:34)
[2022-05-20] MEDS: ASCORBIC ACID 500 MG TAB PO SCH (08:35)
[2022-05-20] MEDS: ATORVASTATIN 40 MG TAB PO SCH (08:35)
[2022-05-20] MEDS: APIXABAN 2.5 MG TAB PO SCH (08:35)
[2022-05-20] MEDS: POTASSIUM CHLORIDE PWD 20 MEQ PACK PO SCH (08:35)
[2022-05-20] MEDS: METOPROLOL SUCC 50MG EXT REL TAB PO SCH (08:35)
--- NOTE | 2022-05-20 09:26 | Discharge Summary ---
Discharge Summary Date of Service May 20, 2022 Notes For Next Care Provider Patient underwent pacer pocket revision on 05/01/[address] Reeves. Wound culture from pacer site grew Klebsiella pneumoniae. His IV antibiotics were switched to Rocephin and recommendations are to complete 2 weeks course and then transition to p.o. antibiotics indefinitely. He will continue IV 1 g Rocephin daily until 05/22/2022 and then transition to Augmentin 500 mg twice daily indefinitely. Wound care instructions to left chest incision-clean with saline. Cover with Aquacel Ag and secured with Optifoam. Change QOD and as needed for drainage. Strongly suggest follow-up with the wound care center. He developed SHAN due to ATN in setting of infected wound. He does have chronic baseline renal dysfunction with CKD stage IIIb. Baseline creatinine 2. Cr on 05/19 1.77 Recommend CBC, CMP with in 3 days of discharge. Due to SHAN patient's digoxin was discontinued. Recommend daily weights and strict I's and O's. Medication Changes From Visit Ceftriaxone 1 g daily until May 22 After completion of ceftriaxone will require Augmentin 875 mg twice daily indefinitely. Recommend daily probiotics. Potassium chloride 20 mEq, 2 tablets daily. Torsemide 80 mg daily. Stop Digoxin. Admission HPI Per Admitting Provider Pt suffered a mechanical fall about a month after his BiV ICD generator change which was complicated with a hematoma developing over the device site there was a delay in our office finding out about this and by the time we were alerted the incision was opened up. Pt was admitted to [facility] [place] and had direct abx delivered directly to into the pocket for a few days for it was too high risk to laser extraction of the chronic leads. He was eventually brought back to the EP lab and had a new generator placed and the incision closed. During this wound healing the incsion started to scab over and non healing. 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 Patient unfortunately suffered a mechanical fall approximately 1 month after his biventricular ICD generator change which was complicated with a developing hematoma over the device site. There apparently was a delay in cardiology office being notified regarding hematoma and when patient presented his incision site was open. On 05/01/2022 he underwent pocket revision by Dr. Reeves. Cultures from surgical site grew Klebsiella pneumoniae, MRSA negative. Wound VAC was discontinued on 05/06/2022. He was placed on IV antibiotics and infectious disease was consulted. He was placed on IV Rocephin 1 g daily for 2 weeks to complete on 05/22/2022 and will require lifelong antibiotics with Augmentin 500-125 mg twice daily. An ultrasound-guided IV line was placed for antibiotics prior to discharge. This will need to be discontinued after completion of antibiotics. Wound care instructions to left chest incision-clean with saline. Cover with Aquacel Ag and secured with Optifoam. Change QOD and as needed for drainage. It is recommended he establish with wound center as outpatient. He will need follow-up with cardiology, Dr. Reeves as well as infectious disease Dr. Albert. His hospital course was further complicated by SHAN. Nephrology was consulted and felt likely secondary to ATN versus cardiorenal syndrome. He was treated with diuresis. His torsemide was adjusted and is currently on 80 mg daily. Pulmonology was consulted due to persistent pleural effusions despite diuresis. He did undergo thoracentesis of 1400 mL of pleural fluid from the right hemithorax. Pleural studies were consistent with transudate in context of CHF. On day of discharge patient was in good spirits but overly generally weak. He offers no acute concerns and is pain free. He is tolerating diet. Discharge Exam Gen: Elderly, male, sitting upright in bed, WD/WN, NAD, A&O x3 HEENT: Normocephalic, atraumatic, conjunctivae moist, sclerae anicteric, mucous membranes moist. Lung: Clear to Auscultation bilaterally, no wheezes/rales/rhonchi Heart: Regular rate, regular rhythm, no murmurs, rubs, or gallops Chest: Dressing on left anterior chest wall with serosanguineous drainage Abdomen: Soft, NT, ND +BS x 4 Extremities: No edema Skin: Warm, no rash, negative turgor. Updated Medication List Medication Instructions Recorded Confirmed Type alprazolam 0.5 mg tablet 0.5 mg PO HS PRN Insomnia 05/03/22 05/03/22 History apixaban 2.5 mg tablet (Eliquis) 2.5 mg PO BID 05/03/22 05/03/22 History ascorbic acid (vitamin C) 500 mg 500 mg PO DAILY 05/03/22 05/03/22 History tablet (Vitamin C) atorvastatin 40 mg tablet 40 mg PO DAILY 05/03/22 05/03/22 History cholecalciferol (vitamin D3) 50 2,000 unit PO DAILY 05/03/22 05/03/22 History mcg (2,000 unit) capsule (Vitamin D3) cyanocobalamin (vitamin B-12) 1,000 mcg PO DAILY 05/03/22 05/03/22 History 1,000 mcg tablet isosorbide mononitrate 30 mg 30 mg PO DAILY 05/03/22 05/03/22 History tablet,extended release 24 hr metoprolol succinate 50 mg 50 mg PO DAILY 05/03/22 05/03/22 History tablet,extended release 24 hr omeprazole 20 mg capsule,delayed 20 mg PO DAILY 05/03/22 05/03/22 History release L.acidop,casei,lactis,rham-B.lact,kiah 2 cap PO DAILY 30 days #60 caps 05/19/22 Rx 625 mg (10 billion cell) capsule (Advanced Probiotic) amoxicillin 500 mg-potassium 1 tab PO BID 30 days #0 tabs 05/19/22 05/03/22 Rx clavulanate 125 mg tablet ceftriaxone 1 gram intravenous 1 g IV DAILY 3 days #3 ea 05/19/22 Rx solution potassium chloride 20 mEq oral 40 meq PO QAM 30 days #30 ea 05/19/22 Rx packet torsemide 10 mg tablet 80 mg PO QAM 30 days #240 tabs 05/19/22 Rx white petrolatum-mineral oil 1 applic EXT BID PRN dry skin #454 05/19/22 Rx topical cream (Dermacerin topical grams cream) Hospital Stay Data Consultations 05/01/22 12:24 Consult Plastic Surgery Routine 05/04/22 09:04 Consult Nephrology Routine 05/06/22 07:00 Consult Infectious Diseases Routine 05/07/22 13:42 Consult Palliative Care Routine 05/13/22 12:46 Consult Pulmonology Routine Procedures Performed Operation Date: 05/01/22 08:00 Actual Procedures p Pacer Gen Change Multiple - Kayli Reeves DO p Relocation Pocket Pacemaker - Kayli Reeves DO s Pocket, I/D Abscess w/Hematoma - Kayli Reeves DO Diagnostic Imagining Performed Chest X-Ray 05/04/22 16:17 XR chest 1V portable CLINICAL HISTORY: Assess Volume Status COMPARISON STUDY: Chest CT November 19, 2016. FINDINGS: Left subclavian pacer, median sternotomy wires and mediastinal surgical clips are noted. Moderate right and small left pleural effusions are present. There is no pneumothorax. Bibasilar opacities are noted. There is no evidence for pulmonary edema. IMPRESSION: 1. Moderate right and small left pleural effusions with associated bibasilar opacities which could reflect atelectasis or consolidation. Radiographic follow- up is recommended. 2. Moderate cardiomegaly. No evidence for pulmonary edema. ACT 112: Negative or not required by law. Electronically signed by: Pranay Shetty M.D. 05/04/2022 7:25 PM Chest X-Ray 05/06/22 03:39 XR chest 1V portable CLINICAL HISTORY: low o2 COMPARISON STUDY: Chest radiograph May 04, 2022. FINDINGS: Left subclavian biventricular pacer/AICD, median sternotomy wires and mediastinal surgical clips are present. Cardiomegaly is unchanged. There is no pneumothorax. Mild interstitial pulmonary edema has developed. Moderate right and small left pleural effusions with associated bibasilar opacities have slightly progressed. IMPRESSION: Interstitial pulmonary edema with moderate right and small left pleural effu sions which have increased in size since prior exam. Associated bibasilar opacities. ACT 112: Negative or not required by law. Electronically signed by: Pranay Shetty M.D. 05/06/2022 7:05 AM Chest X-Ray 05/11/22 13:33 XR chest 1V portable CLINICAL HISTORY: increasing cough TECHNIQUE: Single frontal radiograph of the chest was obtained. Comparison: Comparison is made to chest radiograph 05/06/2022 FINDINGS: Median sternotomy wires are unchanged. Dual lead pacemaker is seen with cardiomegaly and aortic calcification. Bilateral lower lung predominant airspace opacities are seen. There is a moderate right and small left pleural effusion. IMPRESSION: Interval improvement in pulmonary edema, however bilateral pleural effusions and airspace opacities are unchanged. ACT 112: Negative or not required by law. Electronically signed by: Kike Rae M.D. 05/11/2022 2:[address] 05/13/22 08:10 CT chest diagnostic wo con CT DOSE: 246.79 mGy.cm CLINICAL HISTORY: 86 years-old Male with pleural effusion vs. pneumonia. Acute shortness of breath TECHNIQUE: Multiaxial CT images of the chest were performed without contrast. A dose lowering technique was utilized adhering to the principles of ALARA. COMPARISON: Chest radiograph 05/11/[address] 11/19/2016 FINDINGS: Prominent calcified plaque of the right carotid bulb is partially imaged. Heterogeneity of the thyroid. Mildly enlarged 1.1 cm AP window lymph node with 1.1 cm subcarinal lymph node. Marked cardiomegaly. Prior median sternotomy with left subclavian pacer/AICD and CABG. Atherosclerosis of the aorta without aneurysm. Dilated main pulmonary artery suggestive of pulmonary arterial hypertension. Moderate layering pleural effusions with dependent bibasilar consolidation. Intralobular septal thickening with intermixed groundglass densities. Mild tracheobronchial secretions. Marginal nodularity of the liver. Unremarkable soft tissues. Degenerative changes of the shoulders and spine. Chronic T12 compression fracture. IMPRESSION: 1. Marked cardiomegaly with mild pulmonary edema. 2. Moderate pleural effusions with dependent bibasilar consolidation suggestive of probable compressive atelectasis. Superimposed pneumonia could appear similarly however considered less likely. 3. Mild mediastinal lymphadenopathy, likely reactive. 4. Findings suggestive of cirrhosis. ACT 112: Negative or not required by law. Electronically signed by: Izaiah Wong M.D. 05/13/2022 10:00 AM Chest X-Ray 05/14/22 11:23 XR chest 1V portable HISTORY: 86 years-old Male S/P Thoracentesis follow-up study in a patient with pleural effusions COMPARISON: Chest CT 05/13/2022 TECHNIQUE: AP view of the chest FINDINGS: Cardiac silhouette is enlarged. Prior median sternotomy with surgical clips of the mediastinum. Left subclavian pacer/AICD. Layering pleural effusions with bibasilar consolidation redemonstrated. Pulmonary vascular congestion. No postprocedural pneumothorax identified. IMPRESSION: 1. No postprocedural pneumothorax identified. 2. Cardiomegaly with pulmonary vascular congestion. 2. Layering pleural effusions with bibasilar consolidation redemonstrated. ACT 112: Negative or not required by law. The above report was generated using voice recognition software. It may contain grammatical, syntax or spelling errors. Electronically signed by: Iaziah Wong M.D. 05/14/2022 12:12 PM Pending Results Patient Have Any Pending Studies at Discharge: No Discharge Instructions Given to Patient (Per Discharging Provider) Continue with ceftriaxone IV until May 22. Remove the US guided line after iv ceftriaxone is completed. Then transition to Augmentin 500 mg twice daily indefinitely Continue with probiotics daily Daily wound care Device and wound check as scheduled at [facility]-Dr. Murray Follow-up with [facility] infectious disease clinic Dr. Arguelles in 2 weeks. Recommend follow-up with [facility] nephrology. Please refer to accompanying hospital discharge summary for full details. Total Time Total Time Spent Total Time Spent (In Minutes): 45 minutes Supervising Physician Co-Signing Physician Notes Patient seen and examined at bedside. Discussed with Stephanie Morris PA-C. Patient comfortably sitting on the chair. He is afebrile and hemodynamically stable. Two more days of Ceftriaxone and Augmentin indefinitely as per recommendations.
== END 2022-05-20 11:27 | DRG 856 ==
LOC: EP 06:55 → 2S 10:26 → SUATTDRO 10:26 → 3E 05-18 13:24
DX: K59.00 Constipation, unspecified; I13.0 Hypertensive heart and chronic kidney disease with heart failure and stage 1 through stage 4 chronic kidney disease, or unspecified chronic kidney disease; I44.2 Atrioventricular block, complete; Z95.1 Presence of aortocoronary bypass graft; I48.20 Chronic atrial fibrillation, unspecified; N17.0 Acute kidney failure with tubular necrosis; Z79.899 Other long term (current) drug therapy; Z87.891 Personal history of nicotine dependence; Z85.46 Personal history of malignant neoplasm of prostate; Z66 Do not resuscitate; I25.5 Ischemic cardiomyopathy; T81.41XA Infection following a procedure, superficial incisional surgical site, initial encounter; E87.1 Hypo-osmolality and hyponatremia; Z79.01 Long term (current) use of anticoagulants; Z88.1 Allergy status to other antibiotic agents; N18.30 Chronic kidney disease, stage 3 unspecified; K74.60 Unspecified cirrhosis of liver; Z88.8 Allergy status to other drugs, medicaments and biological substances; R04.0 Epistaxis; I50.42 Chronic combined systolic (congestive) and diastolic (congestive) heart failure; Z91.030 Bee allergy status; Z95.810 Presence of automatic (implantable) cardiac defibrillator